=== PATIENT | female | born 1940 ===

== ENCOUNTER 2017-09-01 13:10 | Emergency (ER) | payer MEDICARE, OTHER ==
[2017-09-01 13:10] VITALS: BMI 37.1
[2017-09-01 13:18] VITALS: TEMP 98.6; O2SAT 96
[2017-09-01] MEDS ORDERED: Albuterol-Ipratrop 3 mg / 0.5 (3 ml) UD IH STA (13:35)
[2017-09-01] MEDS ORDERED: Sodium Chloride 0.9% 500 ML IV STA (13:35)
[2017-09-01] MEDS ORDERED: Albuterol-Ipratrop 3 mg / 0.5 (3 ml) UD ONE (13:47)
--- NOTE | 2017-09-01 13:53 | ED PDOC ---
History of Present Illness History of Present Illness: 76 year old female with a past medical history of diabetes, hypertension and arthritis presents to the ED with flu like symptoms. The patient states that she had had a chest tightness, dry cough, shortness of breath, bodyaches, weakness x1 week. Se reports that she has not taken anything for pain. Denies nasal congestion, body aches, fever, abdominal pain, nausea, vomiting, diarrhea. PMD: Dr. Castillo- [facility] HPI: Influenza Time Seen by Provider: 09/01/17 13:25 Chief Complaint: Flu-like Symptoms Chief Complaint (Provider): Chest Tightness, Dry Cough, Shortness of Breath History Per: Patient Exam Limitations: no limitations Have you had recent travel within the past 21 days to any of: No Onset/Duration Of Symptoms: Hrs (x1 week) Symptoms include: cough. denies: fever, bodyaches, nasal congestion, vomiting, diarrhea, chest pain, difficulty breathing (shortness of breath) Sick Contacts (Context): None Risk factors for flu complications: Yes: adult > 65 years Past Medical History Reviewed: Historical Data, Nursing Documentation, Vital Signs Vital Signs: Last Vital Signs Temp 98.6 F 09/01/17 13:16 Pulse 120 H 09/01/17 13:16 Resp 20 09/01/17 13:16 BP Pulse Ox 96 09/01/17 13:16 - Medical History PMH: Arthritis, Back Problems, Diabetes (type II), HTN, Hypercholesterolemia, Hyperlipidemia, Osteoporosis, Chronic Pain (back) Denies: HIV, Chronic Kidney Disease - Surgical History Surgical History: (x3) - Family History Family History: States: Unknown Family Hx - Living Arrangements Living Arrangements: Alone - Social History Current smoker - smoking cessation education provided: No Ex-Smoker (has not smoked in the last 12 months): No Alcohol: None Drugs: Denies - Home Medications Home Medications: Ambulatory Orders Medication Instructions Recorded Simvastatin 20 mg PO DAILY 10/17/14 Valsartan/Hydrochlorothiazide 1 tab PO BID 10/17/14 [Valsartan-Hctz 160-12.5 mg Tab] metFORMIN [glucOPHAGE] 500 mg PO DAILY 02/28/16 traMADol [Ultram] 50 mg PO Q8 PRN #12 tab 02/28/16 DiphenhydrAMINE [Benadryl] 50 mg PO Q6 #20 cap 08/20/16 Albuterol Sulfate [Proair Hfa] 0.09 mg IH Q6H PRN #2 inh 09/01/17 Azithromycin [Zithromax] 250 mg PO DAILY 5 Days tab 09/01/17 Benzonatate [Tessalon Perles] 100 mg PO BID PRN 5 Days sgl 09/01/17 Ibuprofen [Motrin] 600 mg PO TID 7 Days tab 09/01/17 - Allergies Allergies/Adverse Reactions: Allergies Allergy/AdvReac Type Severity Reaction Status Date / Time No Known Allergies Allergy Verified 08/20/16 11:48 Review of Systems ROS Statement: Except As Marked, All Systems Reviewed And Found Negative Constitutional: Positive for: Weakness. Negative for: Fever ENT: Negative for: Nose Congestion Cardiovascular: Negative for: Chest Pain (chest tightness) Respiratory: Positive for: Cough (dry), Shortness of Breath Gastrointestinal: Negative for: Nausea, Vomiting, Diarrhea Musculoskeletal: Negative for: Back Pain Neurological: Positive for: Weakness Physical Exam - Reviewed Nursing Documentation Reviewed: Yes Vital Signs Reviewed: Yes - Physical Exam Appears: Positive for: Non-toxic, No Acute Distress Head Exam: Positive for: ATRAUMATIC, NORMAL INSPECTION, NORMOCEPHALIC Skin: Positive for: Normal Color, Warm, Dry. Negative for: Rash Eye Exam: Positive for: Normal appearance, EOMI, PERRL. Negative for: Nystagmus ENT: Positive for: Nasal Congestion. Negative for: Pharyngeal Erythema, Tonsillar Exudate, Tonsillar Swelling Neck: Positive for: Normal, Painless ROM, Supple Cardiovascular/Chest: Positive for: Regular Rate, Rhythm, Chest Non Tender. Negative for: Tachycardia Respiratory: Positive for: Decreased Breath Sounds. Negative for: Accessory Muscle Use, Rhonchi, Wheezing, Respiratory Distress Gastrointestinal/Abdominal: Positive for: Normal Exam, Bowel Sounds, Soft. Negative for: Tenderness, Guarding, Rebound Back: Positive for: Normal Inspection. Negative for: L CVA Tenderness, R CVA Tenderness Extremity: Positive for: Normal ROM. Negative for: Tenderness, Deformity, Swelling Neurologic/Psych: Positive for: Alert, Oriented, Gait Medical Decision Making Medical Decision Makin Initial Impression 76 y/o female presenting with chest tightness, shortness of breath, dry cough Initial Plan: * EKG * B-type natriutetic * CMP * Troponin * CBC * CXR * Albuterol 3mL INH * NS 500ml IV 100mls/hr * Tessalon perles 100mg PO * Toradol 15mg IVP * Peak Flow pre/post * Influenza A B * Reevaluation Documented by Natty Valencia acting as a scribe for Oliver Sinclair MD. All medical record entries made by the Scribe were at my direction and personally dictated by me. I have reviewed the chart and agree that the record accurately reflects my personal performance of the history, physical exam, medical decision making, and the department course for this patient. I have also personally directed, reviewed, and agree with the discharge instructions and disposition. - Laboratory Results Result Diagrams: 09/01/17 13:40 09/01/17 13:40 Interpretation Of Abn Labs: 13.3 wbc; 3.4 k - ECG ECG: Positive for: Interpreted By Me, Viewed By Me ECG Rhythm: Positive for: Normal QRS, Normal ST Segment, Sinus Rhythm O2 Sat by Pulse Oximetry: 96 (RA) Pulse Ox Interpretation: Normal - Radiology X-Ray: Read By Radiologist X-Ray Interpretation: No Acute Disease - Progress ED Course And Treament: 1554: Stable. AAOx3. Pain free. Eating. Feels much better. Wants inhaler and antibiotics for dc. Disposition - Clinical Impression Clinical Impression: URI (upper respiratory infection), Hypokalemia - Patient ED Disposition Is Patient to be Admitted: No Counseled Patient/Family Regarding: Studies Performed, Diagnosis, Need For Followup, Rx Given - Disposition Referrals: [facility] [Outside] - 09/03/17 Disposition: Routine/Home Disposition Time: 15:55 Condition: STABLE Additional Instructions: Return if not better in 3 days. Prescriptions: Albuterol Sulfate [Proair Hfa] 0.09 mg IH Q6H PRN #2 inh PRN Reason: Wheezing Azithromycin [Zithromax] 250 mg PO DAILY 5 Days tab Benzonatate [Tessalon Perles] 100 mg PO BID PRN 5 Days sgl PRN Reason: Cough Ibuprofen [Motrin] 600 mg PO TID 7 Days tab Instructions: Hypokalemia Forms: [facility] (Portuguese)
[2017-09-01 14:20] LABS: ALB/GLOB RATIO 1.3 (1.0-2.1); ALBUMIN 4.3 g/dL (3.5-5.0); ALT/SGPT 29 U/L (9-52); AST/SGOT 27 U/L (14-36); BLOOD UREA NITROGEN 14 mg/dl (7-17); CALCIUM 9.8 mg/dL (8.4-10.2); GFR AFRICAN-AMERICAN > 60; GFR NON-AFRICAN AMERICAN > 60
[2017-09-01 14:22] LABS: BASO # 0.1 K/uL (0.0-0.2); BASO % 0.5 % (0.0-2.0); EOS # 0.3 K/uL (0.0-0.7); EOS % 2.2 % (0.0-4.0); HEMOGLOBIN 13.3 g/dL (12.0-16.0); LYMPH % 22.5 % (20.0-40.0); MEAN CORPUSCULAR HGB CONC 32.5 g/dL (33.0-37.0); MEAN PLATELET VOLUME 10.4 fl (7.2-11.7); MONO % 7.2 % (0.0-10.0); NEUT % 67.6 % (50.0-75.0); RBC 4.77 Mil/uL (3.80-5.20); RED CELL DISTRIBUTION WIDTH 13.8 % (11.5-14.5); WHITE BLOOD COUNT 13.3 K/uL (4.8-10.8)
[2017-09-01 14:32] LABS: B-TYPE NATRIURETIC PEPTIDE 33.1 pg/ml (0-900)
--- NOTE | 2017-09-01 15:40 | RAD ---
HISTORY: dyspnea COMPARISON: Comparison chest 10/17/2014 FINDINGS: LUNGS: Poor inspiration with low lung volumes, crowded bronchovascular markings and mild bibasilar atelectasis PLEURA: No significant pleural effusion identified, no pneumothorax apparent. CARDIOVASCULAR: Heart appears mildly enlarged unchanged. OSSEOUS STRUCTURES: No significant abnormalities. VISUALIZED UPPER ABDOMEN: Normal. OTHER FINDINGS: None. IMPRESSION: Poor inspiration with low lung volumes, crowded bronchovascular markings and mild bibasilar atelectasis.
[2017-09-01] MEDS ORDERED: Potassium Chloride 20 mEq ER Tab PO STA (15:49)
[2017-09-01 18:35] VITALS: BP 142/88; PULSE 92; RESP 18
--- NOTE | 2017-09-03 12:17 | CARD ---
APPROVED REPORT EKG Measurement Heart [id number] <Conclusion> Sinus tachycardia Otherwise normal ECG
== END 2017-09-01 18:10 | disposition home or self-care (01) ==
LOC: H.ER 13:10
DX: J06.9 Acute upper respiratory infection, unspecified (principal); E87.6 Hypokalemia; E11.9 Type 2 diabetes mellitus without complications; E78.00 Pure hypercholesterolemia, unspecified; G89.29 Other chronic pain; I10 Essential (primary) hypertension; Z79.84 Long term (current) use of oral hypoglycemic drugs; Z87.891 Personal history of nicotine dependence
CPT/HCPCS: 71045; 80053; 83880; 84484; 85025; 87804; 93005; 96374; 99283; J1885; J7040

== ENCOUNTER 2017-09-10 14:47 | Emergency (ER) | payer MEDICARE, OTHER ==
[2017-09-10 14:47] VITALS: BMI 37.1
[2017-09-10 14:52] VITALS: BP 150/77; PULSE 84; RESP 16; TEMP 97; O2SAT 99
--- NOTE | 2017-09-10 15:24 | ED PDOC ---
HPI: Skin/Bite Injury Time Seen by Provider: 09/10/17 14:55 Chief Complaint (Nursing): Abnormal Skin Integrity Chief Complaint (Provider): Rash History Per: Patient History/Exam Limitations: no limitations Onset/Duration Of Symptoms: Days (x 1 week) Current Symptoms Are (Timing): Still Present Additional History Per: Family (grandson) Additional Complaint(s): Lei is a 76 y/o female with a history of diabetes and hypertension who presents to the ED with her grandson for a rash on her left leg. Grandson states the rash is itchy and sometimes valera. She denies any new foods or skin products. She has been putting anti-fungus powder on it with no relief. Otherwise: (-) fever (-) joint pain (-) chest pain (-) abdominal pain (-) nausea (-) vomiting (-) diarrhea (-) recent URI (-) leg swelling (-) SOB/ dyspnea. PMD: Rob Past Medical History Reviewed: Historical Data, Nursing Documentation, Vital Signs Vital Signs: Last Vital Signs Temp 97 F L 09/10/17 14:49 Pulse 84 09/10/17 14:49 Resp 16 09/10/17 14:49 BP 150/77 09/10/17 14:49 Pulse Ox 99 09/10/17 21:24 - Medical History PMH: Arthritis, Back Problems, Diabetes (type II), HTN, Hypercholesterolemia, Hyperlipidemia, Osteoporosis, Chronic Pain (back) Denies: HIV, Chronic Kidney Disease - Surgical History Surgical History: (x3) - Family History Family History: States: Unknown Family Hx - Social History Current smoker - smoking cessation education provided: No Alcohol: None Drugs: Denies - Home Medications Home Medications: Ambulatory Orders Medication Instructions Recorded Simvastatin 20 mg PO DAILY 10/17/14 Valsartan/Hydrochlorothiazide 1 tab PO BID 10/17/14 [Valsartan-Hctz 160-12.5 mg Tab] metFORMIN [glucOPHAGE] 500 mg PO DAILY 02/28/16 traMADol [Ultram] 50 mg PO Q8 PRN #12 tab 02/28/16 DiphenhydrAMINE [Benadryl] 50 mg PO Q6 #20 cap 08/20/16 Albuterol Sulfate [Proair Hfa] 0.09 mg IH Q6H PRN #2 inh 09/01/17 Azithromycin [Zithromax] 250 mg PO DAILY 5 Days tab 09/01/17 Benzonatate [Tessalon Perles] 100 mg PO BID PRN 5 Days sgl 09/01/17 Ibuprofen [Motrin] 600 mg PO TID 7 Days tab 09/01/17 Calamine/Zinc Oxide [Calamine 10 ml TOP BID PRN #1 bottle 09/10/17 Lotion] - Allergies Allergies/Adverse Reactions: Allergies Allergy/AdvReac Type Severity Reaction Status Date / Time No Known Allergies Allergy Verified 08/20/16 11:48 Review of Systems ROS Statement: Except As Marked, All Systems Reviewed And Found Negative Skin: Positive for: Rash (legs b/l) Physical Exam - Reviewed Nursing Documentation Reviewed: Yes Vital Signs Reviewed: Yes - Physical Exam Appears: Positive for: Well, Non-toxic, No Acute Distress Head Exam: Positive for: ATRAUMATIC, NORMOCEPHALIC Skin: Positive for: Warm, Dry, Rash (erythematous, faint macules to left anterior, proximal glover (+) dry skin/flaking (-) tenderness (-) drainage (-) warmth (-) evidence of infection (-) ecchymosis) Neck: Positive for: Painless ROM, Supple Cardiovascular/Chest: Positive for: Regular Rate, Rhythm. Negative for: Murmur Respiratory: Positive for: Normal Breath Sounds. Negative for: Decreased Breath Sounds, Accessory Muscle Use, Respiratory Distress Gastrointestinal/Abdominal: Positive for: Soft. Negative for: Tenderness, Mass , Distended, Guarding, Rebound Extremity: Positive for: Capillary Refill (<2 seconds). Negative for: Tenderness, Pedal Edema, Calf Tenderness, Swelling, Other (excoriations, evidence of infection, skin break) Neurologic/Psych: Positive for: Alert, Oriented (x3), Gait (steady in ED with cane) - ECG O2 Sat by Pulse Oximetry: 99 (RA) Pulse Ox Interpretation: Normal Medical Decision Making Medical Decision Making: Time: 15:20 Initial Impression: Contact Dermatitis Dx of rash, likely contact dermatitis d/w the patient. Based on history, exam and diagnostic results plan will be for discharge and outpatient follow up. Advised to follow up with primary care physician in 1-2 days without fail. Advised to take medication as prescribed. Return to the emergency room at any time for any new or worsening symptoms. Patient states she fully agrees with and understands discharge instructions. States that she agrees with the plan and disposition. Verbalized and repeated discharge instructions and plan. I have given the patient opportunity to ask any additional questions. Scribe Attestation: Documented by Sonido Schmitt, acting as a scribe for Cherelle Christian PA-C Provider Scribe Attestation: All medical record entries made by the Scribe were at my direction and personally dictated by me. I have reviewed the chart and agree that the record accurately reflects my personal performance of the history, physical exam, medical decision making, and the department course for this patient. I have also personally directed, reviewed, and agree with the discharge instructions and disposition. Disposition - Clinical Impression Clinical Impression: Rash and nonspecific skin eruption, Contact dermatitis - Patient ED Disposition Is Patient to be Admitted: No Counseled Patient/Family Regarding: Diagnosis, Need For Followup, Rx Given - Disposition Referrals: Hao Le MD [Staff Provider] - Disposition: Routine/Home Disposition Time: 15:29 Condition: STABLE Prescriptions: Calamine/Zinc Oxide [Calamine Lotion] 10 ml TOP BID PRN #1 bottle PRN Reason: Itching / Pruritus Instructions: Contact Dermatitis (DC), Skin Rash Forms: [employer] (Mongolian) Print Language: TURKISH - POA Present On Arrival: None
== END 2017-09-10 15:30 | disposition home or self-care (01) ==
LOC: H.ER 14:47
DX: L25.9 Unspecified contact dermatitis, unspecified cause (principal); E11.9 Type 2 diabetes mellitus without complications; I10 Essential (primary) hypertension; G89.29 Other chronic pain; Z79.84 Long term (current) use of oral hypoglycemic drugs; M81.0 Age-related osteoporosis without current pathological fracture

== ENCOUNTER 2017-12-11 10:16 | Day surgery (SDC) | payer MEDICARE, OTHER ==
[2017-12-11 10:31] VITALS: BMI 44.3
[2017-12-11 11:07] VITALS: RESP 18
[2017-12-11] MEDS ORDERED: Lactated Ringer's 1,000 ML IV ONE ×2 (13:17→14:52)
[2017-12-11] MEDS ORDERED: Silver Nitrate Topical - Stick TOP ONE ×2 (14:00)
[2017-12-11] MEDS ORDERED: Labetalol 5 mg/ml Inj 20ML IVP PRN (14:36)
[2017-12-11 16:09] VITALS: O2SAT 97
[2017-12-11 17:28] VITALS: BP 116/74; PULSE 103; TEMP 97.7
--- NOTE | 2017-12-17 23:34 | OP ---
PROCEDURE DATE: 12/11/2017 PREOPERATIVE DIAGNOSIS: Thickened endometrium with retained intrauterine device. POSTOPERATIVE DIAGNOSIS: Thickened endometrium with retained intrauterine device with cervical stenosis. PROCEDURE: Attempted hysteroscopy with intrauterine device removal and dilation and curettage. SURGEON: Kain Lopez M.D. EXPLOSIVES OPERATOR: TYPE OF ANESTHESIA: General. COMPLICATIONS: None. FINDINGS: A stenotic internal cervical os was noted. IUD string identified; however, fibrosis and stenosis noted inside cervical os and IUD unable to be removed. INDICATION: This is a 77-year-old female with a history of an IUD that was placed 40 years ago and currently in place. The patient had a pelvic ultrasound performed that showed a thickened endometrium of 13 mm and thickening unable to be identified as grossly thickened lining versus IUD in place. Due to this, the patient was recommended to undergo a hysteroscopy with an attempt for IUD removal and a D and C. The patient was consented in New Zealander regarding the risks, benefits, and alternatives for the procedure. She stated understanding of all the risks, signed the consented and we proceeded to the operating room. DESCRIPTION OF PROCEDURE: The patient was brought to the operating room and given general anesthesia without difficulty. She was then placed in the dorsal lithotomy position and prepped and draped in the usual sterile fashion. Exam under anesthesia revealed a small uterine size and bilateral adnexa revealed no abnormalities. IUD strings were seen through the cervical os. Anterior lip of the cervix was then grasped with the single-tooth tenaculum and the cervix was attempted for serial dilation with Hegar and Hanks dilator. A hysteroscope was then able to be advanced with normal saline running up to the portion of the internal cervical os. The IUD string was then seen; however, dilation beyond this point was unable to be performed. The hysteroscope was then removed and a curettage was then performed with the Wesleyian curette of the endocervical portion. This was then placed in [facility] to be sent to pathology. An additional attempt was made for further dilation of the internal cervical os to allow better access for removal of the IUD and visualization of the endometrial cavity. Traction was then placed on the strings of the IUD, which again was unable to be removed due to fibrosis around the device and stenosis of the internal cervical os. As the procedure was unable to be performed for the removal of the device due to the severe fibrosis, the procedure was aborted at this time. All instruments were removed. Minimal bleeding was seen at the tenaculum site and this was stopped with silver nitrate. The patient was cleaned, re-positioned, and awakened from anesthesia. She was then transferred to the recovery room in stable condition and the patient will return to the office in 2 weeks to discuss the operative findings and needed further management. Kain Lopez MD
== END 2017-12-11 17:20 | disposition home or self-care (01) ==
LOC: H.OPSURG 10:16
PROVIDERS: ATTEND Obstetrics & Gynecology
DX: T83.82XA Fibrosis due to genitourinary prosthetic devices, implants and grafts, initial encounter (principal); N88.2 Stricture and stenosis of cervix uteri; R93.8 Abnormal findings on diagnostic imaging of other specified body structures; Y83.8 Other surgical procedures as the cause of abnormal reaction of the patient, or of later complication, without mention of misadventure at the time of the procedure; I10 Essential (primary) hypertension; E11.9 Type 2 diabetes mellitus without complications; Z79.84 Long term (current) use of oral hypoglycemic drugs
CPT/HCPCS: 58558; 82948; 88305; J0330; J2001; J2704; J2765; J3010; J7030; J7120

== ENCOUNTER 2018-04-29 09:55 | Emergency (ER) | payer MEDICARE, OTHER ==
[2018-04-29 10:01] VITALS: RESP 18
[2018-04-29 10:02] VITALS: BMI 35.7
--- NOTE | 2018-04-29 10:50 | ED PDOC ---
HPI: Chest Pain Time Seen by Provider: 04/29/18 10:12 Chief Complaint (Nursing): Abdominal Pain Chief Complaint (Provider): Chest Pain History Per: Patient History/Exam Limitations: no limitations Onset/Duration Of Symptoms: Days (x1 week) Current Symptoms Are (Timing): Constant Additional Complaint(s): Lei Hong is a 77 year old female with a past medical history of HTN, diabetes, arthritis and HLD, who presents to the emergency department complaining of left sided chest and shoulder pain, onset x1 week. She states the pain radiates to her neck and left side of her chest associated with swelling in left shoulder and chest wall. Patient states that the pain is constant for one week and that she took Tylenol and lidocaine. Patient states she has no difficu lty breathing, cough or leg swelling. PMD: Laura Lamar Against Medical Advice - AMA Patient Left Against Medical Advice: The patient declines admission to the hospital and wishes to leave the Emergency Department. This action is against my medical advice. This decision was made with informed refusal. The patient was told that admission to the hospital is necessary. Explanation of the reasons why were discussed. The risks of leaving were explained to the patient and include, but are not limited to, worsening of known or currently unknown conditions, permanent disability and from undiagnosed or untreated conditions. The patient has the capacity to make this informed decision and understands my explanation of the current medical problem and risks of leaving. The patient voluntarily accepts these risks and signed an AMA form documenting our conversation. The patient was given the opportunity to ask questions and reconsider. The patient was encouraged to return to the Emergency Department at any time for fu rther care. Past Medical History Reviewed: Historical Data, Nursing Documentation, Vital Signs Vital Signs: Last Vital Signs Temp 97.8 F 04/29/18 10:00 Pulse 90 04/29/18 10:00 Resp 18 04/29/18 10:00 BP 146/70 04/29/18 10:00 Pulse Ox 98 04/29/18 10:00 - Medical History PMH: Arthritis, Back Problems, Diabetes (type II), HTN, Hypercholesterolemia, Hyperlipidemia, Osteoporosis, Chronic Pain (back) Denies: HIV, Chronic Kidney Disease - Surgical History Surgical History: (x3) - Family History Family History: States: Unknown Family Hx - Home Medications Home Medications: Ambulatory Orders Medication Instructions Recorded Simvastatin 20 mg PO HS 10/17/14 Valsartan/Hydrochlorothiazide 1 tab PO DAILY 10/17/14 [Valsartan-Hctz 160-12.5 mg Tab] metFORMIN [glucOPHAGE] 500 mg PO BID 02/28/16 Ibuprofen [Motrin] 600 mg PO Q6 PRN 12/11/17 Naproxen 500 mg PO BID #20 tab 04/29/18 - Allergies Allergies/Adverse Reactions: Allergies Allergy/AdvReac Type Severity Reaction Status Date / Time No Known Allergies Allergy Verified 12/11/17 10:31 RILEY Risk Score for UA/NSTEMI - RILEY Risk Score Age > 64: NO 3 or more CAD Risk Factors: NO Known CAD (Stenosis greater than 50%): NO Aspirin use in past 7 days: NO Severe Angina: NO EKG ST changes greater than 0.5mm: NO Positive Cardiac Marker: NO RILEY Score: 0 Risk %: 5% Wells Criteria for PE - Wells Criteria for Pulmonary Embolism Clinical Signs and Symptoms of DVT: No P.E is #1 Diagnosis, or Equally Likely: No Heart Rate >100: No Immobilization at least 3 days;Surgery previous 4 weeks: No Previous, objectively diagnosed PE or DVT: No Hemoptysis: No Malignancy w/treatment within 6 months, or palliative: No Total Score: 0 Review of Systems ROS Statement: Except As Marked, All Systems Reviewed And Found Negative Cardiovascular: Positive for: Chest Pain (Left sided chest pain and swelling) Respiratory: Negative for: Cough, Shortness of Breath Musculoskeletal: Positive for: Neck Pain, Other (left shoulder pain and swelling). Negative for: Leg Pain (or swelling) Physical Exam - Reviewed Nursing Documentation Reviewed: Yes Vital Signs Reviewed: Yes - Physical Exam Appears: Positive for: Non-toxic, No Acute Distress (comfortable) Head Exam: Positive for: ATRAUMATIC, NORMOCEPHALIC Skin: Positive for: Normal Color, Warm, Dry Eye Exam: Positive for: Normal appearance, EOMI, PERRL ENT: Positive for: Normal ENT Inspection Neck: Positive for: Supple. Negative for: Normal (mild swelling on left lateral aspect of the neck) Cardiovascular/Chest: Positive for: Regular Rate, Rhythm, Other (swelling of left shoulder and upper chest wall; no redness or rash ). Negative for: Chest Non Tender, Murmur Respiratory: Positive for: Normal Breath Sounds. Negative for: Respiratory Distress Gastrointestinal/Abdominal: Positive for: Normal Exam, Soft. Negative for: Tenderness Extremity: Positive for: Normal ROM. Negative for: Pedal Edema, Deformity Lymphatic: Negative for: Adenopathy Neurologic/Psych: Positive for: Alert, Oriented (x3). Negative for: Motor/Sensory Deficits - Laboratory Results Result Diagrams: 04/29/18 11:00 04/29/18 11:00 - ECG O2 Sat by Pulse Oximetry: 98 (RA) Pulse Ox Interpretation: Normal - Radiology X-Ray: Viewed By Me, Read By Radiologist X-Ray Interpretation: No Acute Disease - Progress Re-evaluation Time: 13:20 Condition: Re-examined, Improved Medical Decision Making Medical Decision Making: Initial Time: 10:40 Initial Impression: Chest pain with swelling on the left neck and chest wall. Differential diagnosis includes but not limited to ACS, intrathoracic mass, DVT, arthritis, cellulitis, soft neck tissue infection Initial Plan: --EKG --CMP --Troponin I --CBC with differential --PTT --PT --Chest x-ray --Toradol 30 mg IVP --Edi Programmer Analyst When evaluated by provider, patient denies having any abdominal pain. Time: 11:33 Chest X-ray FINDINGS: LUNGS: No acute cardiopulmonary disease appreciated. PLEURA: No pneumothorax or pleural fluid seen. CARDIOVASCULAR: Normal. OSSEOUS STRUCTURES: No significant abnormalities. VISUALIZED UPPER ABDOMEN: Normal. OTHER FINDINGS: None. IMPRESSION: No acute cardiopulmonary disease appreciated. Scribe Attestation: Documented by Kiet Roberts, acting as a scribe for Schuyler Miranda MD. Provider Scribe Attestation: All medical record entries made by the Scribe were at my direction and personally dictated by me. I have reviewed the chart and agree that the record accurately reflects my personal performance of the history, physical exam, medical decision making, and the department course for this patient. I have also personally directed, reviewed, and agree with the discharge instructions and disposition. Disposition - Clinical Impression Clinical Impression: Localized swelling of chest wall, Neck pain, Left against medical advice - Patient ED Disposition Is Patient to be Admitted: No Doctor Will See Patient In The: Office Counseled Patient/Family Regarding: Studies Performed, Diagnosis, Need For Fol lowup - Disposition Referrals: Laura Lamar MD [Staff Provider] - Disposition: Routine/Home Disposition Time: 13:20 Condition: STABLE Additional Instructions: LEI HONG, thank you for letting us take care of you today. Your provider was Schuyler Miranda MD and you were treated for ABD PAIN. The emergency medical care you received today was directed at your acute symptoms. If you were prescribed any medication, please fill it and take as directed. It may take several days for your symptoms to resolve. Return to the Emergency Department if your symptoms worsen, do not improve, or if you have any other problems. Please contact your doctor or call one of the physicians/clinics you have been referred to that are listed on the Patient Visit Information form that is included in your discharge packet. Bring any paperwork you were given at [facility] with you along with any medications you are taking to your follow up visit. Our treatment cannot replace ongoing medical care by a primary care provider outside of the emergency department. Thank you for allowing the [email or web address] team to be part of your care today. If you had an X-Ray or CT scan: A Radiologist will review the ED reading if any change in treatment is needed we will contact you. If you had a blood, urine, or wound culture: It will take several days for the results, if any change in treatment is needed we will contact you. If you had an STI test: It will take 48 hours for the results. Please call after 1 week if you have not heard back. Prescriptions: Naproxen 500 mg PO BID #20 tab Instructions: Pleural Effusion, Neck Pain, Leaving Against Medical Advice Forms: [employer] (Turkmen) Print Language: URUGUAYAN
--- NOTE | 2018-04-29 11:09 | CARD ---
APPROVED REPORT Date of service: 04/29/2018 EKG Measurement Heart [id number] <Conclusion> Normal sinus rhythm with sinus arrhythmia Normal ECG
[2018-04-29 11:13] LABS: BASO # 0.1 K/uL (0.0-0.2); BASO % 0.6 % (0.0-2.0); EOS # 0.2 K/uL (0.0-0.7); EOS % 1.6 % (0.0-4.0); HEMOGLOBIN 13.7 g/dL (12.0-16.0); LYMPH % 23.9 % (20.0-40.0); MEAN CELL VOLUME 86.4 fl (81.0-99.0); MEAN CORPUSCULAR HEMOGLOBIN 28.6 pg (27.0-31.0); MEAN CORPUSCULAR HGB CONC 33.1 g/dL (33.0-37.0); MEAN PLATELET VOLUME 10.2 fl (7.2-11.7); MONO # 0.7 K/uL (0.0-0.8); MONO % 5.5 % (0.0-10.0); NEUT # 8.5 K/uL (1.8-7.0); NEUT % 68.4 % (50.0-75.0); RBC 4.81 Mil/uL (3.80-5.20); RED CELL DISTRIBUTION WIDTH 13.8 % (11.5-14.5); WHITE BLOOD COUNT 12.5 K/uL (4.8-10.8)
[2018-04-29 11:14] LABS: PROTHROMBIN TIME 11.1 Seconds (9.8-13.1)
[2018-04-29 11:17] LABS: PARTIAL THROMBOPLASTIN TIME 25.6 Seconds (25.6-37.1)
[2018-04-29 11:19] LABS: ALB/GLOB RATIO 1.2 (1.0-2.1); ALBUMIN 4.1 g/dL (3.5-5.0); ALT/SGPT 24 U/L (9-52); AST/SGOT 25 U/L (14-36); BLOOD UREA NITROGEN 15 mg/dl (7-17); CALCIUM 9.3 mg/dL (8.4-10.2); GFR NON-AFRICAN AMERICAN > 60
--- NOTE | 2018-04-29 11:37 | RAD ---
Date of service: 04/29/2018 PROCEDURE: CHEST RADIOGRAPH, 1 VIEW HISTORY: chest pain COMPARISON: Chest radiographs 09/12/2017. FINDINGS: LUNGS: No acute cardiopulmonary disease appreciated. PLEURA: No pneumothorax or pleural fluid seen. CARDIOVASCULAR: Normal. OSSEOUS STRUCTURES: No significant abnormalities. VISUALIZED UPPER ABDOMEN: Normal. OTHER FINDINGS: None. IMPRESSION: No acute cardiopulmonary disease appreciated.
[2018-04-29] MEDS ORDERED: Iohexol 300 100 ML IJ ONE (13:39)
[2018-04-29] MEDS ORDERED: Sodium Chloride 0.9% 0 ML IV ONE (13:39)
[2018-04-29 14:31] VITALS: BP 136/76; PULSE 76; TEMP 97.9
[2018-04-29 15:50] VITALS: O2SAT 98
== END 2018-04-29 14:28 | disposition left against medical advice (07) ==
LOC: H.ER 09:55
DX: R22.2 Localized swelling, mass and lump, trunk (principal); M54.2 Cervicalgia; E11.9 Type 2 diabetes mellitus without complications; G89.29 Other chronic pain; I10 Essential (primary) hypertension; Z79.84 Long term (current) use of oral hypoglycemic drugs; M81.0 Age-related osteoporosis without current pathological fracture
CPT/HCPCS: 71045; 80053; 84484; 85025; 85610; 85730; 93005; 96374; 99284; J1885

== ENCOUNTER 2018-05-01 13:25 | Emergency (ER) | payer MEDICARE, OTHER ==
[2018-05-01 13:25] VITALS: BMI 35.7
--- NOTE | 2018-05-01 13:51 | ED PDOC ---
HPI: General Adult Time Seen by Provider: 05/01/18 13:39 Chief Complaint (Nursing): Headache History Per: Patient Onset/Duration Of Symptoms: Other ( 2weeks) Current Symptoms Are (Timing): Still Present Severity: Mild Additional Complaint(s): Swelling left upper chest and left side of neck x 2 weeks. seen here 2 days ago for same but could not stay for CT recommended at that time. Mildly painful but denies trauma or fever. Past Medical History Vital Signs: Last Vital Signs Temp 97.4 F L 05/01/18 13:34 Pulse 89 05/01/18 13:34 Resp 16 05/01/18 13:34 BP 161/89 H 05/01/18 13:34 Pulse Ox 98 05/01/18 13:34 - Medical History PMH: Arthritis, Back Problems, Diabetes (type II), HTN, Hypercholesterolemia, Hyperlipidemia, Osteoporosis, Chronic Pain (back) Denies: HIV, Chronic Kidney Disease - Surgical History Surgical History: (x3) - Family History Family History: States: Unknown Family Hx - Home Medications Home Medications: Ambulatory Orders Medication Instructions Recorded Simvastatin 20 mg PO HS 10/17/14 Valsartan/Hydrochlorothiazide 1 tab PO DAILY 10/17/14 [Valsartan-Hctz 160-12.5 mg Tab] metFORMIN [glucOPHAGE] 500 mg PO BID 02/28/16 Ibuprofen [Motrin] 600 mg PO Q6 PRN 12/11/17 Naproxen 500 mg PO BID #20 tab 04/29/18 - Allergies Allergies/Adverse Reactions: Allergies Allergy/AdvReac Type Severity Reaction Status Date / Time No Known Allergies Allergy Verified 05/01/18 13:32 Review of Systems ROS Statement: Except As Marked, All Systems Reviewed And Found Negative Musculoskeletal: Positive for: Neck Pain Physical Exam - Reviewed Nursing Documentation Reviewed: Yes Vital Signs Reviewed: Yes - Physical Exam Appears: Positive for: Non-toxic, No Acute Distress Head Exam: Positive for: ATRAUMATIC, NORMAL INSPECTION, NORMOCEPHALIC Skin: Positive for: Normal Color, Warm, DRY Eye Exam: Positive for: EOMI, Normal appearance, PERRL ENT: Positive for: Normal ENT Inspection Neck: Positive for: Painless ROM. Negative for: Normal (Mild supraclavicular swelling. No tenderness or crepitance.) Cardiovascular/Chest: Positive for: Regular Rate, Rhythm Respiratory: Positive for: CNT, Normal Breath Sounds Gastrointestinal/Abdominal: Positive for: Normal Exam, Soft Back: Positive for: Normal Inspection Extremity: Positive for: Normal ROM Neurologic/Psych: Positive for: Alert, Oriented - ECG O2 Sat by Pulse Oximetry: 98 Disposition - Clinical Impression Clinical Impression: Neck pain - Patient ED Disposition Is Patient to be Admitted: Transfer of Care - Disposition Disposition: Transfer of Care Disposition Time: 14:51 Condition: FAIR Forms: [employer] (Bahraini) Patient Signed Over To: Anne Jackson
[2018-05-01] MEDS ORDERED: Iohexol 300 100 ML IJ ONE (14:51)
[2018-05-01] MEDS ORDERED: Sodium Chloride 0.9% 50 ML IV ONE (14:51)
--- NOTE | 2018-05-01 16:26 | CT ---
Date of service: 05/01/2018 PROCEDURE: CT Neck, Chest, Abdomen and Pelvis with contrast HISTORY: Swelling left side of neck COMPARISON: None available. TECHNIQUE: Contrast dose: 95 mL Omnipaque 300 Radiation dose: Total exam DLP = 863.69 mGy-cm. This CT exam was performed using one or more of the following dose reduction techniques: Automated exposure control, adjustment of the mA and/or kV according to patient size, and/or use of iterative reconstruction technique. FINDINGS: CT OF THE NECK: PHARYNX: Nasopharynx: Unremarkable. Oropharnx: Unremarkable. Hypopharynx: Unremarkable. LYMPH NODES: Unremarkable. VASCULATURE: Prominent left internal jugular vein with heterogeneous attenuation which may be related to admixture versus organizing thrombus. GLANDS: Unremarkable. CERVICAL SPINE: Degenerative changes. CT OF THE CHEST: LUNGS: Clear lungs. Visualized airway clear. MEDIASTINUM: Unremarkable thoracic aorta. No aneurysm or dissection. Cardiomegaly. Pulmonary arterial truck unremarkable. No vascular congestion. No lymphadenopathy. No aortic atherosclerotic calcification or mural plaque present. Brachiocephalic vein and SVC are widely patent. PLEURA: No pleural fluid. No pneumothorax. BONES: No fracture. No destructive lesion. OTHER FINDINGS: Partially imaged calcified cholelithiasis. IMPRESSION: No left neck mass, adenopathy or soft tissue swelling. Distended left internal jugular vein with heterogeneous attenuation which may be related to admixture versus organizing thrombus. Ultrasound of the left internal jugular vein can be obtained for further evaluation as clinically warranted. Partially imaged calcified cholelithiasis.
--- NOTE | 2018-05-01 16:52 | ED PDOC ---
- ECG O2 Sat by Pulse Oximetry: 98 Medical Decision Making Medical Decision Makin:00 Patient endorsed to provider by Dr. Steele with left neck swelling pending CT scan. 16:22 Neck/Chest CT FINDINGS: CT OF THE NECK: PHARYNX: Nasopharynx: Unremarkable. Oropharnx: Unremarkable. Hypopharynx: Unremarkable. LYMPH NODES: Unremarkable. VASCULATURE: Prominent left internal jugular vein with heterogeneous attenuation which may be related to admixture versus organizing thrombus. GLANDS: Unremarkable. CERVICAL SPINE: Degenerative changes. CT OF THE CHEST: LUNGS: Clear lungs. Visualized airway clear. MEDIASTINUM: Unremarkable thoracic aorta. No aneurysm or dissection. Cardiomegaly. Pulmonary arterial truck unremarkable. No vascular congestion. No lymphadenopathy. No aortic atherosclerotic calcification or mural plaque present. Brachiocephalic vein and SVC are widely patent. PLEURA: No pleural fluid. No pneumothorax. BONES: No fracture. No destructive lesion. OTHER FINDINGS: Partially imaged calcified cholelithiasis. IMPRESSION: No left neck mass, adenopathy or soft tissue swelling. Distended left internal jugular vein with heterogeneous attenuation which may be related to admixture versus organizing thrombus. Ultrasound of the left inter nal jugular vein can be obtained for further evaluation as clinically warranted. Partially imaged calcified cholelithiasis. Scribe Attestation: Documented by Khurram Almeida acting as a scribe for Anne Jackson MD Provider Scribe Attestation: All medical record entries made by the Scribe were at my direction and personally dictated by me. I have reviewed the chart and agree that the record accurately reflects my personal performance of the history, physical exam, medical decision making, and the department course for this patient. I have also personally directed, reviewed, and agree with the discharge instructions and disposition. Disposition - Clinical Impression Clinical Impression: Neck pain - Disposition Condition: FAIR Forms: [employer] (Telugu)
--- NOTE | 2018-05-01 18:53 | US ---
Date of service: 05/01/2018 PROCEDURE: Left Upper Extremity Venous Doppler HISTORY: swelling LEFT IJ on CT r/o thrombus COMPARISON: None available. TECHNIQUE: Left upper extremity deep veins, including the lower internal jugular, subclavian, axillary and brachial veins, were evaluated flow, compressibility and respiratory phasicity. Basilic, cephalic, radial and ulnar veins were also evaluated. FINDINGS: Normal flow, compressibility and respiratory phasicity was observed in the the left upper extremity deep veins. IMPRESSION: No evidence of deep venous thrombosis.
[2018-05-01 19:05] VITALS: BP 116/54; PULSE 72; RESP 18; TEMP 98.4; O2SAT 96
== END 2018-05-01 19:19 | disposition home or self-care (01) ==
LOC: H.ER 13:25
DX: M54.2 Cervicalgia (principal); E11.9 Type 2 diabetes mellitus without complications; I10 Essential (primary) hypertension; Z79.84 Long term (current) use of oral hypoglycemic drugs
CPT/HCPCS: 70491; 71260; 93971; 99284; Q9967

== ENCOUNTER 2018-06-07 15:17 | Emergency (ER) | payer MEDICARE, OTHER ==
[2018-06-07 15:17] VITALS: BMI 35.7
[2018-06-07] MEDS ORDERED: Sodium Chloride 0.9% 500 ML IV STA (15:53)
--- NOTE | 2018-06-07 16:14 | ED PDOC ---
HPI: General Adult Time Seen by Provider: 06/07/18 15:38 Chief Complaint (Nursing): Weakness/Neurological Deficit Chief Complaint (Provider): Dizzieness History Per: Patient, Family History/Exam Limitations: no limitations Onset/Duration Of Symptoms: Hrs Have you had recent travel within the past 21 days to any of the following countries: [place], [place], [place] or [place]?: No Current Symptoms Are (Timing): Still Present Additional Complaint(s): 77 y/o female with a PMHx of Osteoporosis, arthritis, HTN, DM and hypercholesterolemia presents to the ED complaining of dizziness. Patient describes dizziness as "room-spinning" and states it is associated with generalized weakness, mild shortness of breath, leg pain, back pain, and bone pain. Patient states she was fine last night and woke up today with sudden onset of symptoms. Patient denies chest pain, congestion, rhinorrhea, headache, numbness, tingling and abdominal pain. PMD: [facility] Past Medical History Reviewed: Historical Data, Nursing Documentation, Vital Signs Vital Signs: Last Vital Signs Temp 97.7 F 06/07/18 15:26 Pulse 79 06/07/18 15:26 Resp 18 06/07/18 15:26 BP 133/80 06/07/18 15:26 Pulse Ox 100 06/07/18 15:26 - Medical History PMH: Arthritis, Back Problems, Diabetes (type II), HTN, Hypercholesterolemia, Hyperlipidemia, Osteoporosis, Chronic Pain (back) Denies: HIV, Chronic Kidney Disease - Surgical History Surgical History: (x3) - Family History Family History: States: Unknown Family Hx - Living Arrangements Living Arrangements: With Family - Home Medications Home Medications: Ambulatory Orders Medication Instructions Recorded Simvastatin 20 mg PO HS 10/17/14 Valsartan/Hydrochlorothiazide 1 tab PO DAILY 10/17/14 [Valsartan-Hctz 160-12.5 mg Tab] metFORMIN [glucOPHAGE] 500 mg PO BID 02/28/16 Ibuprofen [Motrin] 600 mg PO Q6 PRN 12/11/17 Naproxen 500 mg PO BID #20 tab 04/29/18 Ibuprofen [Motrin Tab] 600 mg PO Q8 PRN #30 tab 05/01/18 Lidocaine 5% [Lidoderm] 1 ea TD DAILY PRN #20 patch 05/01/18 - Allergies Allergies/Adverse Reactions: Allergies Allergy/AdvReac Type Severity Reaction Status Date / Time No Known Allergies Allergy Verified 06/07/18 15:23 Review of Systems ROS Statement: Except As Marked, All Systems Reviewed And Found Negative Constitutional: Positive for: Weakness ENT: Negative for: Nose Discharge, Nose Congestion Cardiovascular: Negative for: Chest Pain Respiratory: Positive for: Shortness of Breath (MILD) Gastrointestinal: Negative for: Abdominal Pain Musculoskeletal: Positive for: Back Pain, Leg Pain, Other ("BONE" PAIN) Neurological: Positive for: Weakness, Dizziness ("ROOM-SPINNING"). Negative for: Numbness, Headache Physical Exam - Reviewed Nursing Documentation Reviewed: Yes Vital Signs Reviewed: Yes - Physical Exam Appears: Positive for: No Acute Distress, Uncomfortable Head Exam: Positive for: ATRAUMATIC, NORMOCEPHALIC Skin: Positive for: Normal Color, Warm, Dry Eye Exam: Positive for: Normal appearance, EOMI, PERRL ENT: Positive for: Normal ENT Inspection. Negative for: Nasal Congestion, Pharyngeal Erythema Neck: Positive for: Normal, Painless ROM, Supple Cardiovascular/Chest: Positive for: Regular Rate, Rhythm. Negative for: Murmur Respiratory: Positive for: Normal Breath Sounds. Negative for: Respiratory Distress Gastrointestinal/Abdominal: Positive for: Soft. Negative for: Tenderness Back: Positive for: Normal Inspection. Negative for: L CVA Tenderness, R CVA Tenderness Extremity: Positive for: Normal ROM. Negative for: Tenderness, Pedal Edema, Deformity Neurologic/Psych: Positive for: Alert, home and school visitor II-XII, Oriented (x3). Negative for: Motor/Sensory Deficits, Aphasia, Facial Droop - Laboratory Results Result Diagrams: 06/07/18 16:27 06/07/18 16:27 Interpretation Of Abn Labs: 15.6 wbc, 3.4 k - ECG ECG: Positive for: Interpreted By Me, Viewed By Me ECG Rhythm: Positive for: Normal QRS, Normal ST Segment, Sinus Rhythm O2 Sat by Pulse Oximetry: 100 (RA) Pulse Ox Interpretation: Normal - Radiology X-Ray: Read By Radiologist X-Ray Interpretation: No Acute Disease Medical Decision Making Medical Decision Making: Time: [id number] Plan: -- CT Head w/o Contrast -- EKG -- B-Type Natriuretic Peptide -- CMP -- Troponin I -- CBC with Differentials -- PTT -- Prothrombin Time -- CXR -- Glucose, POC -- Antivert 25 mg PO -- Sodium Chloide 0.9% IV 100 mls/hr Time: 1640 CXR RESULTS FINDINGS: LUNGS: No active pulmonary disease. PLEURA: No significant pleural effusion identified, no pneumothorax apparent. CARDIOVASCULAR: No atherosclerotic calcification present No radiographic findings to suggest acute or significant cardiovascular disease. OSSEOUS STRUCTURES: No significant abnormalities. VISUALIZED UPPER ABDOMEN: Normal. OTHER FINDINGS: None. IMPRESSION: No active disease. No significant interval change compared to the prior examination(s). Time: 1641 -- At this time, patient is refusing CT Head. Patient made aware of possible risk factors. Patient has the capacity of making decisions. Family is at bedside and made aware of decreased function and possibly from her symptoms. Pt. is aaox3. Scribe Attestation: Documented by Shivam Gonzalez, acting as a scribe for Oliver Sinclair MD. Provider Scribe Attestation: All medical record entries made by the Scribe were at my direction and personally dictated by me. I have reviewed the chart and agree that the record accurately reflects my personal performance of the history, physical exam, medical decision making, and the department course for this patient. I have also personally directed, reviewed, and agree with the discharge instructions and disposition. 1820: Stable. Pt. refusing to get ct still. Does not want to be admitted. Daughter at bedside and aware of pt. decision. Pt. will go against medical advice. Ambulated with no issues. Tolerated po. No dizzy. WBC elevated last visit also, possibly chronic for pt. Has no chest pain or dyspnea currently. Disposition - Clinical Impression Clinical Impression: Hypokalemia, Acute weakness, Dizziness - Patient ED Disposition Is Patient to be Admitted: No Counseled Patient/Family Regarding: Studies Performed, Diagnosis - Disposition Referrals: [facility] [Outside] - 06/10/18 Disposition: Against Medical Advice Disposition Time: 18:46 Condition: STABLE Additional Instructions: Return soon as possible for further evaluation and treatment. You are going against medical advice and aware of possible or decreased functioning from your symptoms. Instructions: Weakness (ED), Dizziness, Nonvertigo, (DC), Hypokalemia (DC) Forms: [employer] (Spanish) Print Language: [place]
[2018-06-07 16:44] LABS: PROTHROMBIN TIME 11.1 Seconds (9.8-13.1)
--- NOTE | 2018-06-07 16:44 | RAD ---
Date of service: 06/07/2018 HISTORY: dyspnea COMPARISON: No prior. 04/29/2018. FINDINGS: LUNGS: No active pulmonary disease. PLEURA: No significant pleural effusion identified, no pneumothorax apparent. CARDIOVASCULAR: No atherosclerotic calcification present No radiographic findings to suggest acute or significant cardiovascular disease. OSSEOUS STRUCTURES: No significant abnormalities. VISUALIZED UPPER ABDOMEN: Normal. OTHER FINDINGS: None. IMPRESSION: No active disease. No significant interval change compared to the prior examination(s).
[2018-06-07 16:52] LABS: ALB/GLOB RATIO 1.2 (1.0-2.1); ALBUMIN 4.3 g/dL (3.5-5.0); ALT/SGPT 29 U/L (9-52); AST/SGOT 24 U/L (14-36); BLOOD UREA NITROGEN 10 mg/dl (7-17); CALCIUM 9.7 mg/dL (8.4-10.2); GFR NON-AFRICAN AMERICAN > 60
[2018-06-07 16:54] LABS: BASO # 0.1 K/uL (0.0-0.2); BASO % 0.5 % (0.0-2.0); EOS # 0.2 K/uL (0.0-0.7); EOS % 1.2 % (0.0-4.0); HEMOGLOBIN 13.5 g/dL (12.0-16.0); LYMPH # 3.8 K/uL (1.0-4.3); LYMPH % 24.6 % (20.0-40.0); MEAN CELL VOLUME 88.9 fl (81.0-99.0); MEAN CORPUSCULAR HEMOGLOBIN 28.3 pg (27.0-31.0); MEAN CORPUSCULAR HGB CONC 31.9 g/dL (33.0-37.0); MEAN PLATELET VOLUME 10.6 fl (7.2-11.7); MONO # 1.1 K/uL (0.0-0.8); NEUT # 10.4 K/uL (1.8-7.0); NEUT % 66.7 % (50.0-75.0); NRBC % 0.2 % (0.0-0.0); RBC 4.77 Mil/uL (3.80-5.20); WHITE BLOOD COUNT 15.6 K/uL (4.8-10.8)
[2018-06-07 17:04] LABS: B-TYPE NATRIURETIC PEPTIDE 71.9 pg/ml (0-900)
[2018-06-07] MEDS ORDERED: Potassium Chloride 20 mEq ER Tab PO STA (18:17)
[2018-06-07] MEDS ORDERED: Potassium Chloride 20 mEq ER Tab PO ONE (18:31)
[2018-06-07 19:33] VITALS: BP 100/59; PULSE 73; RESP 12; TEMP 98.5; O2SAT 97
--- NOTE | 2018-06-08 19:04 | CARD ---
APPROVED REPORT Date of service: 06/07/2018 EKG Measurement Heart [id number] <Conclusion> Normal sinus rhythm Normal ECG
== END 2018-06-07 19:37 | disposition home or self-care (01) ==
LOC: H.ER 15:17
DX: R42 Dizziness and giddiness (principal); M62.81 Muscle weakness (generalized); E87.6 Hypokalemia; E11.9 Type 2 diabetes mellitus without complications; E78.00 Pure hypercholesterolemia, unspecified; I10 Essential (primary) hypertension; Z79.84 Long term (current) use of oral hypoglycemic drugs; G89.29 Other chronic pain
CPT/HCPCS: 71045; 80053; 82948; 83880; 84484; 85025; 85610; 85730; 93005; 99285; J7040

== ENCOUNTER 2018-06-11 06:39 | Emergency (ER) | payer MEDICARE, OTHER ==
[2018-06-11 06:56] VITALS: BMI 39.6
--- NOTE | 2018-06-11 07:25 | ED PDOC ---
HPI: SOB/CHF/COPD Time Seen by Provider: 06/11/18 07:13 Chief Complaint (Nursing): Shortness Of Breath Chief Complaint (Provider): Shortness Of Breath History Per: Patient History/Exam Limitations: no limitations Associated Symptoms: Dizziness. denies: Chest Pain Additional Complaint(s): 77 years old female with history of high cholesterol, hyperlipidema, diabetes and hypertension presents to ER for evaluation of dizziness associated with shortness of breath. Patient had multiple visits to the ED for similar complaints over the past weeks and workup was unremarkable. She denies chest jameel n, cough, palpitations and focal weakness. PMD: non provided Past Medical History Reviewed: Historical Data, Nursing Documentation, Vital Signs Vital Signs: Last Vital Signs Temp 97.6 F 06/11/18 06:56 Pulse 79 06/11/18 06:56 Resp 18 06/11/18 06:56 BP 175/83 H 06/11/18 06:56 Pulse Ox 96 06/11/18 06:56 - Medical History PMH: Arthritis, Back Problems, Diabetes (type II), HTN, Hypercholesterolemia, Hyperlipidemia, Osteoporosis, Chronic Pain (back) Denies: HIV, Chronic Kidney Disease - Surgical History Surgical History: (x3) - Family History Family History: States: Unknown Family Hx - Home Medications Home Medications: Ambulatory Orders Medication Instructions Recorded Simvastatin 20 mg PO HS 10/17/14 Valsartan/Hydrochlorothiazide 1 tab PO DAILY 10/17/14 [Valsartan-Hctz 160-12.5 mg Tab] metFORMIN [glucOPHAGE] 500 mg PO BID 02/28/16 Ibuprofen [Motrin] 600 mg PO Q6 PRN 12/11/17 Naproxen 500 mg PO BID #20 tab 04/29/18 Ibuprofen [Motrin Tab] 600 mg PO Q8 PRN #30 tab 05/01/18 Lidocaine 5% [Lidoderm] 1 ea TD DAILY PRN #20 patch 05/01/18 Meclizine [Meclizine*] 25 mg PO Q8 #15 tab 06/11/18 - Allergies Allergies/Adverse Reactions: Allergies Allergy/AdvReac Type Severity Reaction Status Date / Time No Known Allergies Allergy Verified 06/11/18 06:56 Review of Systems ROS Statement: Except As Marked, All Systems Reviewed And Found Negative Cardiovascular: Negative for: Chest Pain, Palpitations Respiratory: Positive for: Shortness of Breath. Negative for: Cough Neurological: Positive for: Dizziness. Negative for: Weakness Physical Exam - Reviewed Nursing Documentation Reviewed: Yes Vital Signs Reviewed: Yes - Physical Exam Appears: Positive for: Non-toxic, No Acute Distress Head Exam: Positive for: ATRAUMATIC, NORMOCEPHALIC Skin: Positive for: Normal Color, Warm, Dry Eye Exam: Positive for: Normal appearance, EOMI, PERRL Neck: Positive for: Normal, Painless ROM, Supple Cardiovascular/Chest: Positive for: Regular Rate, Rhythm. Negative for: Murmur Respiratory: Positive for: Normal Breath Sounds. Negative for: Wheezing Gastrointestinal/Abdominal: Positive for: Normal Exam, Soft. Negative for: Tenderness Back: Positive for: Normal Inspection. Negative for: L CVA Tenderness, R CVA Tenderness Extremity: Positive for: Normal ROM. Negative for: Tenderness, Swelling Neurologic/Psych: Positive for: Alert, Oriented (x3). Negative for: Motor/Sensory Deficits - ECG O2 Sat by Pulse Oximetry: 96 (RA) Pulse Ox Interpretation: Normal Medical Decision Making Medical Decision Making: Time: 717 Initial Plan: --Head CT W/O Contrast Pt declines CT of head Scribe Attestation: Documented by Sophia Boles, acting as a scribe for Michael Steele MD. Provider Scribe Attestation: All medical record entries made by the Scribe were at my direction and per sonally dictated by me. I have reviewed the chart and agree that the record accurately reflects my personal performance of the history, physical exam, medical decision making, and the department course for this patient. I have also personally directed, reviewed, and agree with the discharge instructions and disposition. Disposition - Clinical Impression Clinical Impression: Vertigo - Patient ED Disposition Is Patient to be Admitted: No - Disposition Referrals: [facility] [Outside] Disposition: Routine/Home Disposition Time: 09:13 Condition: FAIR Prescriptions: Meclizine [Meclizine*] 25 mg PO Q8 #15 tab Instructions: Vertigo (a Type of Dizziness) Forms: [employer] (Bahraini) Print Language: IRISH
[2018-06-11 09:05] VITALS: RESP 19
[2018-06-11 10:15] LABS: BASO # 0.1 K/uL (0.0-0.2); BASO % 0.5 % (0.0-2.0); EOS # 0.1 K/uL (0.0-0.7); EOS % 0.7 % (0.0-4.0); HEMOGLOBIN 14.3 g/dL (12.0-16.0); LYMPH # 2.7 K/uL (1.0-4.3); LYMPH % 21.5 % (20.0-40.0); MEAN CELL VOLUME 88.8 fl (81.0-99.0); MEAN CORPUSCULAR HEMOGLOBIN 28.3 pg (27.0-31.0); MEAN CORPUSCULAR HGB CONC 31.8 g/dL (33.0-37.0); MEAN PLATELET VOLUME 10.5 fl (7.2-11.7); MONO # 0.6 K/uL (0.0-0.8); MONO % 5.1 % (0.0-10.0); NEUT % 72.2 % (50.0-75.0); NRBC % 0.1 % (0.0-0.0); RBC 5.07 Mil/uL (3.80-5.20); RED CELL DISTRIBUTION WIDTH 14.2 % (11.5-14.5); WHITE BLOOD COUNT 12.4 K/uL (4.8-10.8)
[2018-06-11 10:35] LABS: ALB/GLOB RATIO 1.3 (1.0-2.1); ALBUMIN 4.6 g/dL (3.5-5.0); ALT/SGPT 27 U/L (9-52); AST/SGOT 25 U/L (14-36); BLOOD UREA NITROGEN 11 mg/dl (7-17); CALCIUM 9.6 mg/dL (8.4-10.2); GFR NON-AFRICAN AMERICAN > 60
--- NOTE | 2018-06-11 10:55 | RAD ---
Date of service: 06/11/2018 HISTORY: Shortness of breath COMPARISON: 06/07/2018 TECHNIQUE: Chest PA and lateral FINDINGS: LINES AND TUBES: None. LUNG AND PLEURA: The lungs are well inflated. There is mild pulmonary venous congestion. No pleural effusion or pneumothorax. HEART AND MEDIASTINUM: The heart is not enlarged. No aortic atherosclerotic calcification present. The hilar and mediastinal contours are within normal limits. SKELETAL STRUCTURES: The bony structures are within normal limits for the patient's age. VISUALIZED UPPER ABDOMEN: Normal. OTHER FINDINGS: None. IMPRESSION: No active pulmonary disease.
[2018-06-11 11:48] LABS: SQUAMOUS EPITHIAL 1 /hpf (0-5); URINE BILIRUBIN NEGATIVE (NEGATIVE); URINE BLOOD SMALL (NEGATIVE); URINE CLARITY CLEAR (Clear); URINE COLOR YELLOW (YELLOW); URINE GLUCOSE (UA) NEG (NEGATIVE); URINE LEUKOCYTE ESTERASE TRACE Leu/uL (Negative); URINE PROTEIN NEGATIVE (NEGATIVE); URINE UROBILINOGEN 0.2-1.0 mg/dL (0.2-1.0)
--- NOTE | 2018-06-11 13:31 | US ---
Date of service: 06/11/2018 HISTORY: elevated bili COMPARISON: None. TECHNIQUE: Grayscale imaging was performed. FINDINGS: LIVER: Measures 19.7 cm in length. There is diffuse increased echogenicity of the liver parenchyma. No mass. No intrahepatic bile duct dilatation. GALLBLADDER: There is a 2.2 cm gallstone. No wall thickening, pericholecystic fluid or positive sonographic Lindsay's sign. COMMON BILE DUCT: Measures 3.3 mm. No stones. No dilatation. PANCREAS: Normal in size and echotexture. No mass. No ductal dilatation. RIGHT KIDNEY: Measures 12.0 cm in length. Normal echogenicity. No calculus, mass, or hydronephrosis. AORTA: No aneurysmal dilatation. IVC: Unremarkable. OTHER FINDINGS: None . IMPRESSION: Mild hepatomegaly. Diffuse increased echogenicity in the liver may reflect hepatic steatosis however parenchymal infectious/ inflammatory etiologies cannot be entirely excluded. Clinical and laboratory correlation is advised. Cholelithiasis.
[2018-06-11 13:55] VITALS: O2SAT 98
[2018-06-11 15:01] VITALS: BP 140/78; PULSE 78; TEMP 977.6
== END 2018-06-11 15:03 | disposition home or self-care (01) ==
LOC: H.ER 06:39
DX: R42 Dizziness and giddiness (principal); K80.20 Calculus of gallbladder without cholecystitis without obstruction; E11.9 Type 2 diabetes mellitus without complications; Z79.84 Long term (current) use of oral hypoglycemic drugs; I10 Essential (primary) hypertension; E78.00 Pure hypercholesterolemia, unspecified

== ENCOUNTER 2018-06-14 08:50 | Emergency (ER) | payer MEDICARE, OTHER ==
[2018-06-14 08:51] VITALS: BMI 39.6
[2018-06-14 11:04] LABS: RENAL EPITHELIAL < 1 /hpf (0-3); SQUAMOUS EPITHIAL 19 /hpf (0-5); URINE BACTERIA RARE (<OCC); URINE BILIRUBIN NEGATIVE (NEGATIVE); URINE BLOOD SMALL (NEGATIVE); URINE CLARITY CLOUDY (Clear); URINE COLOR YELLOW (YELLOW); URINE GLUCOSE (UA) NEG (NEGATIVE); URINE LEUKOCYTE ESTERASE LARGE Leu/uL (Negative); URINE PROTEIN NEGATIVE (NEGATIVE); URINE UROBILINOGEN 0.2-1.0 mg/dL (0.2-1.0)
--- NOTE | 2018-06-14 11:10 | CT ---
Date of service: 06/14/2018 PROCEDURE: CT HEAD WITHOUT CONTRAST. HISTORY: r/o ICH COMPARISON: None available. TECHNIQUE: Axial computed tomography images were obtained through the head/brain without intravenous contrast. Supplemental Coronal and Sagittal projections created and reviewed. Radiation dose: Total exam DLP = 865.73 mGy-cm. This CT exam was performed using one or more of the following dose reduction techniques: Automated exposure control, adjustment of the mA and/or kV according to patient size, and/or use of iterative reconstruction technique. FINDINGS: HEMORRHAGE: No intracranial hemorrhage. BRAIN: No mass effect or edema. No atrophy or chronic microvascular ischemic changes. VENTRICLES: Unremarkable. No hydrocephalus. CALVARIUM: Unremarkable. PARANASAL SINUSES: Unremarkable as visualized. No significant inflammatory changes. MASTOID AIR CELLS: Unremarkable as visualized. No inflammatory changes. OTHER FINDINGS: None. IMPRESSION: No acute intracranial abnormalities. No significant findings to account for the clinical presentation.
[2018-06-14 11:52] LABS: BASO # 0.1 K/uL (0.0-0.2); BASO % 0.7 % (0.0-2.0); EOS # 0.1 K/uL (0.0-0.7); EOS % 0.5 % (0.0-4.0); HEMOGLOBIN 13.7 g/dL (12.0-16.0); LYMPH # 2.3 K/uL (1.0-4.3); LYMPH % 18.1 % (20.0-40.0); MEAN CELL VOLUME 86.8 fl (81.0-99.0); MEAN CORPUSCULAR HEMOGLOBIN 28.2 pg (27.0-31.0); MEAN CORPUSCULAR HGB CONC 32.5 g/dL (33.0-37.0); MEAN PLATELET VOLUME 11.2 fl (7.2-11.7); MONO # 0.8 K/uL (0.0-0.8); MONO % 6.2 % (0.0-10.0); NEUT # 9.4 K/uL (1.8-7.0); NEUT % 74.5 % (50.0-75.0); NRBC % 0.1 % (0.0-0.0); RBC 4.87 Mil/uL (3.80-5.20); RED CELL DISTRIBUTION WIDTH 13.9 % (11.5-14.5); WHITE BLOOD COUNT 12.6 K/uL (4.8-10.8)
[2018-06-14 11:57] LABS: ALB/GLOB RATIO 1.4 (1.0-2.1); ALBUMIN 4.5 g/dL (3.5-5.0); ALT/SGPT 29 U/L (9-52); AST/SGOT 30 U/L (14-36); BLOOD UREA NITROGEN 11 mg/dl (7-17); CALCIUM 9.6 mg/dL (8.4-10.2); GFR NON-AFRICAN AMERICAN > 60
[2018-06-14 12:08] LABS: B-TYPE NATRIURETIC PEPTIDE 43.3 pg/ml (0-900)
[2018-06-14] MEDS ORDERED: cefTRIAXone (Rocephin) 1 gm Inj ONE (12:42)
--- NOTE | 2018-06-14 12:51 | ED PDOC ---
HPI: General Adult Time Seen by Provider: 06/14/18 09:45 Chief Complaint (Nursing): Dizziness/Lightheaded Chief Complaint (Provider): dizzines, anxiety, nausea History Per: Patient, [place] (v[place] but patient then preferred to speak montenegrin w family) History/Exam Limitations: no limitations Onset/Duration Of Symptoms: Gradual (x weeks) Current Symptoms Are (Timing): Intermittent Episodes Severity: Moderate Recently: Seen In ED, Treated By A Physician Additional Complaint(s): 77yo female presents c/o ongoing intermittent nausea, dizziness, generalized weakness and anxiety. Denied abdominal pain, vomiting, syncope, focal weakness, suicidal thoughts or chest pain. Past Medical History Vital Signs: Last Vital Signs Temp 98.0 F 06/14/18 09:02 Pulse 86 06/14/18 09:28 Resp 15 06/14/18 09:28 BP 134/84 06/14/18 09:28 Pulse Ox 98 06/14/18 09:28 - Medical History PMH: Arthritis, Back Problems, Diabetes (type II), HTN, Hypercholesterolemia, Hyperlipidemia, Osteoporosis, Chronic Pain (back) Denies: HIV, Chronic Kidney Disease - Surgical History Surgical History: (x3) - Family History Family History: States: Unknown Family Hx - Home Medications Home Medications: Ambulatory Orders Medication Instructions Recorded Simvastatin 20 mg PO HS 10/17/14 Valsartan/Hydrochlorothiazide 1 tab PO DAILY 10/17/14 [Valsartan-Hctz 160-12.5 mg Tab] metFORMIN [glucOPHAGE] 500 mg PO BID 02/28/16 Cephalexin [Keflex] 500 mg PO TID #15 cap 06/14/18 Cholecalciferol (Vitamin D3) 2,000 unit PO DAILY 06/19/18 [Vitamin D3] Meclizine [Meclizine*] 25 mg PO Q8 PRN 06/19/18 - Allergies Allergies/Adverse Reactions: Allergies Allergy/AdvReac Type Severity Reaction Status Date / Time No Known Allergies Allergy Verified 06/19/18 12:54 - Laboratory Results Result Diagrams: 06/14/18 11:25 06/14/18 11:25 - ECG O2 Sat by Pulse Oximetry: 98 Medical Decision Making Medical Decision Making: labs and head CT performed and results reviewed UA c/w UTI crisis consult performed, clear for discharge Rx Abx for UTI, followup PMD 2-3 days Disposition - Clinical Impression Clinical Impression: UTI (urinary tract infection), Depression, Dizziness - Patient ED Disposition Is Patient to be Admitted: No - Disposition Referrals: [facility] [Outside] Disposition: Routine/Home Disposition Time: 13:00 Condition: IMPROVED Additional Instructions: Followup with appointment with [facility] as scheduled this month, they can speak to you about home health aide. Return to ER for any new or worsening symptoms. Take antibiotic as directed. Prescriptions: Cephalexin [Keflex] 500 mg PO TID #15 cap Instructions: Urinary Tract Infections in Adults, Depression, Adult (DC), Dizziness, Nonvertigo, (DC), Tips for How to Help Your Mood Forms: [facility] (French) Print Language: KINYARWANDA
[2018-06-14 14:48] VITALS: BP 138/79; PULSE 88; RESP 16; TEMP 98.4
--- NOTE | 2018-06-14 20:06 | CARD ---
APPROVED REPORT Date of service: 06/14/2018 EKG Measurement Heart [id number] <Conclusion> Normal sinus rhythm Low voltage QRS Borderline ECG
[2018-06-22 16:41] VITALS: O2SAT 98
== END 2018-06-14 14:48 | disposition home or self-care (01) ==
LOC: H.ER 08:50
DX: N39.0 Urinary tract infection, site not specified (principal); R42 Dizziness and giddiness; F32.9 Major depressive disorder, single episode, unspecified
CPT/HCPCS: 70450; 80053; 81003; 83880; 84443; 84484; 85025; 87086; 87181; 93005; 96360; 99283; J0696

== ENCOUNTER 2018-06-19 12:40 | Observation (INO) | payer MEDICARE, OTHER ==
[2018-06-19 12:40] VITALS: BMI 39.6
[2018-06-19] MEDS ORDERED: Sodium Chloride 0.9% 500 ML IV STA (13:21)
[2018-06-19] MEDS ORDERED: Iohexol 240 (50 ml) PO STA (13:21)
--- NOTE | 2018-06-19 13:33 | ED PDOC ---
HPI: Abdomen Time Seen by Provider: 06/19/18 13:01 Chief Complaint (Nursing): Abdominal Pain Chief Complaint (Provider): Abd pain History Per: Patient History/Exam Limitations: no limitations Onset/Duration Of Symptoms: Days (today) Additional Complaint(s): Pt. with abd pain epigastric. No chest pain, nausea, vomit, diarrhea, weakness, headaches, dizziness, dysuria. No back pain. No fever, new food. Past Medical History Reviewed: Nursing Documentation, Vital Signs Vital Signs: Last Vital Signs Temp 97.7 F 06/19/18 12:55 Pulse 72 06/19/18 12:55 Resp 18 06/19/18 12:55 BP 134/66 06/19/18 12:55 Pulse Ox 100 06/19/18 12:55 - Medical History PMH: Arthritis, Back Problems, Diabetes (type II), HTN, Hypercholesterolemia, Hyperlipidemia, Osteoporosis, Chronic Pain (back) Denies: Hepatitis, HIV, Chronic Kidney Disease, Seizures, Sexually Transmitted Disease - Surgical History Surgical History: (x3) - Family History Family History: States: Unknown Family Hx - Home Medications Home Medications: Ambulatory Orders Medication Instructions Recorded Simvastatin 20 mg PO HS 10/17/14 Valsartan/Hydrochlorothiazide 1 tab PO DAILY 10/17/14 [Valsartan-Hctz 160-12.5 mg Tab] metFORMIN [glucOPHAGE] 500 mg PO BID 02/28/16 Ibuprofen [Motrin] 600 mg PO Q6 PRN 12/11/17 Naproxen 500 mg PO BID #20 tab 04/29/18 Ibuprofen [Motrin Tab] 600 mg PO Q8 PRN #30 tab 05/01/18 Lidocaine 5% [Lidoderm] 1 ea TD DAILY PRN #20 patch 05/01/18 Meclizine [Meclizine*] 25 mg PO Q8 #15 tab 06/11/18 Cephalexin [cephalexin] 500 mg PO TID #15 cap 06/14/18 - Allergies Allergies/Adverse Reactions: Allergies Allergy/AdvReac Type Severity Reaction Status Date / Time No Known Allergies Allergy Verified 06/19/18 12:54 Review of Systems ROS Statement: Except As Marked, All Systems Reviewed And Found Negative Gastrointestinal: Positive for: Abdominal Pain Physical Exam - Reviewed Nursing Documentation Reviewed: Yes Vital Signs Reviewed: Yes - Physical Exam Appears: Positive for: Non-toxic, No Acute Distress Head Exam: Positive for: ATRAUMATIC, NORMAL INSPECTION, NORMOCEPHALIC Skin: Positive for: Normal Color, Warm, DRY Eye Exam: Positive for: EOMI, Normal appearance, PERRL ENT: Positive for: Normal ENT Inspection Neck: Positive for: Normal, Painless ROM Cardiovascular/Chest: Positive for: Regular Rate, Rhythm Respiratory: Positive for: CNT, Normal Breath Sounds Gastrointestinal/Abdominal: Positive for: Soft, Tenderness (epigastric) Back: Positive for: Normal Inspection. Negative for: L CVA Tenderness, R CVA Tenderness Extremity: Positive for: Normal ROM. Negative for: Tenderness, Pedal Edema Neurologic/Psych: Positive for: Alert, Oriented - Laboratory Results Result Diagrams: 06/19/18 13:20 06/19/18 13:20 Interpretation Of Abn Labs: 3.4 k; 12 wbc - ECG ECG: Positive for: Interpreted By Me, Viewed By Me ECG Rhythm: Positive for: Normal QRS, Normal ST Segment, Sinus Rhythm O2 Sat by Pulse Oximetry: 100 Pulse Ox Interpretation: Normal - Progress ED Course And Treament: 1816: Stable. AAOx3. Will need admit for appendicitis. Spoke with surgery who will consult. [facility] resident spoken to and will admit under Dr. Romeo. Disposition - Clinical Impression Clinical Impression: Appendicitis - Patient ED Disposition Is Patient to be Admitted: Yes Counseled Patient/Family Regarding: Studies Performed, Diagnosis - Disposition Disposition Time: 18:18 Condition: STABLE - Pt Status Changed To: Hospital Disposition Of: Inpatient - Admit Certification Admit to Inpatient:: After my assessment, the patient will require hospitalization for at least two midnights. This is because of the severity of symptoms shown, intensity of services needed, and/or the medical risk in this patient being treated as an outpatient. - POA Present On Arrival: None
[2018-06-19] MEDS ORDERED: Iohexol 240 (50 ml) ONE (13:38)
[2018-06-19 13:42] LABS: BASO # 0.1 K/uL (0.0-0.2); BASO % 0.9 % (0.0-2.0); EOS # 0.1 K/uL (0.0-0.7); EOS % 1.2 % (0.0-4.0); HEMOGLOBIN 13.8 g/dL (12.0-16.0); LYMPH % 24.9 % (20.0-40.0); MEAN CELL VOLUME 86.1 fl (81.0-99.0); MEAN CORPUSCULAR HEMOGLOBIN 28.5 pg (27.0-31.0); MEAN PLATELET VOLUME 10.3 fl (7.2-11.7); NEUT # 7.8 K/uL (1.8-7.0); RBC 4.84 Mil/uL (3.80-5.20); RED CELL DISTRIBUTION WIDTH 13.8 % (11.5-14.5)
[2018-06-19 14:09] LABS: ALB/GLOB RATIO 1.4 (1.0-2.1); ALBUMIN 4.4 g/dL (3.5-5.0); ALT/SGPT 26 U/L (9-52); AST/SGOT 27 U/L (14-36); BLOOD UREA NITROGEN 12 mg/dl (7-17); CALCIUM 9.6 mg/dL (8.4-10.2); GFR NON-AFRICAN AMERICAN > 60; LIPASE 41 U/L (23-300)
[2018-06-19] MEDS ORDERED: Sodium Chloride 0.9% 50 ML IV ONE (15:41)
[2018-06-19] MEDS ORDERED: Iohexol 300 100 ML IJ ONE (15:41)
--- NOTE | 2018-06-19 18:08 | CT ---
Date of service: 2018-06-19 16:15:25 PROCEDURE: CT Abdomen and Pelvis. HISTORY: Abdominal pain. COMPARISON: Comparison made with CT scan abdomen pelvis 10/17/2017. TECHNIQUE: Contiguous axial images of the abdomen and pelvis. Oral contrast was administered. No IV contrast given. Coronal and Sagittal reformats generated. Radiation dose: Total exam DLP = 915.35 mGy-cm. This CT exam was performed using one or more of the following dose reduction techniques: Automated exposure control, adjustment of the mA and/or kV according to patient size, and/or use of iterative reconstruction technique. FINDINGS: LOWER THORAX: Minor passive/dependent type atelectasis both lung bases. There also appears to be some scarring in the lingular and to a lesser degree middle lobe regions as well. No evidence of effusion or the basilar pneumothorax. Heart size is mildly enlarged. No significant pericardial effusion. There is a small hiatal hernia. LIVER: Liver is mildly enlarged measuring over 19 cm in CC dimension. Mild diffuse fatty hepatic infiltration. No obvious hepatic mass collection or calcification. Portal and splenic veins appear opacified. GALLBLADDER AND BILE DUCTS: Cholelithiasis.. No pericholecystic fluid collections. PANCREAS: Unremarkable. No mass. No ductal dilatation. Pancreas is mildly atrophic and fatty replaced. There are no pancreatic masses collections or calcifications. SPLEEN: Spleen exhibits normal size and attenuation pattern without mass collection or calcification.. ADRENALS: No adrenal lesions are identified. KIDNEYS AND URETERS: Kidneys demonstrate relatively symmetric nephrograms. No evidence of nephrolithiasis or hydronephrosis.. BLADDER: Urinary bladder is incompletely distended which in part accounts for thick-walled appearance. Possibility of a cystitis should also be excluded. Correlation with urinalysis recommended. REPRODUCTIVE: There is a linear which bone appearing hyperdense structure within the endometrial canal likely representing in situ IUD. There appears to be thickening of the endometrium for this patient's stated age.. Recommend followup pelvic ultrasound for further evaluation and exclude endometrial pathology such as endometrial hyperplasia, polyps or endometrial carcinoma. APPENDIX: The tip of the appendix appears slightly dilated measuring approximately 8 mm in greatest diameter with some minimal of enhancement of the wall of the tip of the appendix. The proximal half of the appendix is opacified however no contrast material extends distally into the tip of the appendix. Some very minimal infiltration changes in the adjacent mesentery also present. Collectively these findings could represent an early acute appendicitis. Clinical correlation with history physical exam and laboratory values recommended. BOWEL: Evaluation of the bowel is limited due to incomplete opacification. There is incomplete distension of the stomach which in part accounts for thick-walled appearance. However the possibility of gastritis or other intrinsic/invasive wall lesion cannot be excluded. Clinical correlation recommended. Visualized loops of small bowel exhibit normal contour and caliber. No evidence of acute mechanical small bowel obstruction with oral contrast material extending into the colon to the level of the distal descending colon region. Scattered colonic diverticula are present however no radiographic evidence of acute diverticulitis. PERITONEUM: Unremarkable. No fluid collection. No free air. There appears to be 2 tiny fat containing ventral wall hernias which are below the umbilicus one to the left of midline and the 2nd slightly more inferiorly located hernia also slightly to the left of midline. LYMPH NODES: Unremarkable. No enlarged lymph nodes. VASCULATURE: Unremarkable. No aortic aneurysm. Minor aortic atherosclerotic calcification or mural plaque present. BONES: Mild multilevel degenerative spondylosis of the lower thoracic and lumbar spine. There are no acute compression fractures no retropulsed fragments. Vertebral bodies exhibit relatively normal stature. OTHER FINDINGS: None. IMPRESSION: Possible mild early acute appendicitis as detailed above.. Clinical correlation recommended.. Cholelithiasis. Mild hepatomegaly with mild fatty hepatic infiltration. In situ IUD with the thickened appearing endometrium. Recommend followup pelvic ultrasound to exclude endometrial pathology such as endometrial hyperplasia, polyps or endometrial carcinoma. Few scattered colonic diverticula without radiographic evidence of acute diverticulitis. Findings discussed with Dr. Sinclair at approximately 6:05 p.m. with written down and read back verification.
[2018-06-19] MEDS ORDERED: Piperacillin/Tazobact 3.375 GM in Sodium Chloride 0.9% 100 ML IV STA (18:11)
[2018-06-19] MEDS ORDERED: Piperacillin/Tazobact 3.375 gm Inj IVPB ONE (18:29)
--- NOTE | 2018-06-19 19:08 | CP.PCM.HP ---
History of Present Illness - History of Present Illness History of Present Illness: General Surgery H&P for Dr. Liao CC: Abdominal pain HPI: 77 year old female, past medical history significant for HTN, DM, HLD, presents to the emergency department with nonradiating, intermittent, epigastric pain. Patient has been having similar symptoms for the past 2 weeks and was recently discharged with Pepcid however she has not taken any prescribed medications for symptoms. Nothing aggravates her abdominal pain at this time. The pain medication given in the ED alleviated her symptoms. Patient had a bowel movement 30 minutes prior but complains of bloating and burping. States she has had decreased apetite recently, but no unintentional weight loss. Patient is passing gas. She denies any fever, chills, nausea, vomiting, shortness of breath, chest pain, or urinary symptoms. PMH: See above PSH: 3 c-sections FH: Noncontributory SH: Denies tobacco, alcohol, drugs ALL: NKDA Meds: See MAR Present on Admission - Present on Admission Any Indicators Present on Admission: No Review of Systems - Constitutional Constitutional: Weakness. absent: Chills, Fever - EENT Eyes: absent: Blurred Vision, Change in Vision Nose/Mouth/Throat: absent: Nasal Congestion, Nasal Discharge - Cardiovascular Cardiovascular: absent: Chest Pain, Dyspnea - Respiratory Respiratory: absent: Cough, Dyspnea - Gastrointestinal Gastrointestinal: Abdominal Pain, Belching, Bloating. absent: Diarrhea, Nausea, Vomiting - Genitourinary Genitourinary: absent: Difficulty Urinating, Dysuria - Musculoskeletal Musculoskeletal: absent: Back Pain, Neck Pain - Integumentary Integumentary: absent: Bleeding Lesions, Changing Lesions - Neurological Neurological: absent: Confusion, Dizziness - Psychiatric Psychiatric: absent: Anxiety, Depression Past Patient History - Infectious Disease Hx of Infectious Diseases: None - Past Medical History & Family History Past Medical History?: Yes - Past Social History Smoking Status: Former Smoker - CARDIAC Hx Hypercholesterolemia: Yes Hx Hypertension: Yes - PULMONARY Hx Tuberculosis: No - NEUROLOGICAL Hx Seizures: No - HEENT Hx HEENT Problems: No - RENAL Hx Chronic Kidney Disease: No - ENDOCRINE/METABOLIC Hx Endocrine Disorders: Yes Hx Diabetes Mellitus Type 2: Yes - HEMATOLOGICAL/ONCOLOGICAL Hx Human Immunodeficiency Virus (HIV): No - INTEGUMENTARY Hx Dermatological Problems: No - MUSCULOSKELETAL/RHEUMATOLOGICAL Hx Arthritis: Yes Hx Osteoporosis: Yes - GASTROINTESTINAL Hx Gastrointestinal Disorders: No - GENITOURINARY/GYNECOLOGICAL Hx Sexually Transmitted Disorders: No - PSYCHIATRIC Hx Emotional Abuse: No Hx Physical Abuse: No Hx Substance Use: No - SURGICAL HISTORY Hx Surgeries: Yes Hx Section: Yes (x3) - ANESTHESIA Hx Malignant Hyperthermia: No Meds Allergies/Adverse Reactions: Allergies Allergy/AdvReac Type Severity Reaction Status Date / Time No Known Allergies Allergy Verified 06/19/18 12:54 Physical Exam - Constitutional Appears: Well, Non-toxic, No Acute Distress - Head Exam Head Exam: ATRAUMATIC, NORMAL INSPECTION, NORMOCEPHALIC - Eye Exam Eye Exam: EOMI - ENT Exam ENT Exam: Mucous Membranes Moist - Respiratory Exam Respiratory Exam: NORMAL BREATHING PATTERN. absent: Respiratory Distress - Cardiovascular Exam Cardiovascular Exam: REGULAR RHYTHM. absent: Tachycardia - GI/Abdominal Exam GI & Abdominal Exam: Normal Bowel Sounds, Soft. absent: Distended, Guarding, Rebound, Tenderness Additional comments: Infraumbilical scars from previous c-sections - Neurological Exam Neurological exam: Alert, Oriented x3 - Psychiatric Exam Psychiatric exam: Normal Affect, Normal Mood - Skin Skin Exam: Dry, Intact, Normal Color, Warm Results - Vital Signs Recent Vital Signs: Last Vital Signs Temp 97.7 F 06/19/18 12:55 Pulse 72 06/19/18 12:55 Resp 18 06/19/18 12:55 BP 134/66 06/19/18 12:55 Pulse Ox 100 06/19/18 18:18 - Labs Result Diagrams: 06/19/18 13:20 06/19/18 13:20 Labs: Laboratory Results - last 24 hr 06/19/18 06/19/18 13:20 13:20 WBC 12.0 H RBC 4.84 Hgb 13.8 Hct 41.7 MCV 86.1 MCH 28.5 MCHC 33.0 RDW 13.8 Plt Count 208 MPV 10.3 Neut % (Auto) 65.0 Lymph % (Auto) 24.9 [place] % (Auto) 8.0 Eos % (Auto) 1.2 Baso % (Auto) 0.9 Neut # (Auto) 7.8 H Lymph # (Auto) 3.0 [place] # (Auto) 1.0 H Eos # (Auto) 0.1 Baso # (Auto) 0.1 Sodium 138 Potassium 3.4 L Chloride 95 L Carbon Dioxide 32 H Anion Gap 14 BUN 12 Creatinine 0.7 Est GFR ( Amer) > 60 Est GFR (Non-Af Amer) > 60 Random Glucose 126 H Calcium 9.6 Total Bilirubin 0.9 AST 27 ALT 26 Alkaline Phosphatase 49 Troponin I < 0.0120 Total Protein 7.7 Albumin 4.4 Globulin 3.2 Albumin/Globulin Ratio 1.4 Lipase 41 Assessment & Plan - Assessment and Plan (Free Text) Assessment: 77F w/ epigastric abdominal pain 2/2 appendicitis vs. biliary cholic vs. gastritis CT scan shows cholelithiasis and early onset acute appendicitis, no free fluid, no free air Plan: Admit for observation NPO IVF IV Abx Antiemetics and analgesics AM labs Monitor vitals Serial abdominal exams Further recommendations per Dr. Yanni Cameron PGY1
[2018-06-19] MEDS: Lactated Ringer's 1,000 ML IV SCH ×2 (20:00→22:38)
--- NOTE | 2018-06-19 20:49 | CARD ---
APPROVED REPORT Date of service: 06/19/2018 EKG Measurement Heart [id number] <Conclusion> Normal sinus rhythm Normal ECG
[2018-06-19] MEDS ORDERED: Piperacillin/Tazobact 3.375 GM in Sodium Chloride 0.9% 100 ML IVPB SCH (21:00)
[2018-06-19] MEDS ORDERED: Dextrose 50% SYRINGE Inj (50 ml) IV PRN (21:30)
[2018-06-19] MEDS ORDERED: Glucagon Recombinant 1 mg Inj IM PRN (21:30)
[2018-06-19] MEDS ORDERED: Insulin Lispro (humaLOG) 100 Units/ml Inj SC SCH (21:30)
[2018-06-19] MEDS ORDERED: MECLIZINE 25 MG PO PRN (21:35)
[2018-06-20] MEDS: Piperacillin/Tazobact 3.375 GM in Sodium Chloride 0.9% 100 ML IVPB SCH ×4 (01:07→18:39)
[2018-06-20] MEDS: Lactated Ringer's 1,000 ML IV SCH ×2 (02:40→05:17)
[2018-06-20 06:32] LABS: HEMOGLOBIN 12.5 g/dL (12.0-16.0); MEAN CELL VOLUME 86.6 fl (81.0-99.0); MEAN CORPUSCULAR HEMOGLOBIN 28.7 pg (27.0-31.0); MEAN CORPUSCULAR HGB CONC 33.2 g/dL (33.0-37.0); RBC 4.34 Mil/uL (3.80-5.20); RED CELL DISTRIBUTION WIDTH 13.8 % (11.5-14.5); WHITE BLOOD COUNT 10.3 K/uL (4.8-10.8)
[2018-06-20] MEDS ORDERED: Lactated Ringer's 1,000 ML IV SCH (06:33)
[2018-06-20 06:54] LABS: ALB/GLOB RATIO 1.3 (1.0-2.1); ALBUMIN 3.6 g/dL (3.5-5.0); ALT/SGPT 30 U/L (9-52); AST/SGOT 22 U/L (14-36); BLOOD UREA NITROGEN 8 mg/dl (7-17); CALCIUM 8.9 mg/dL (8.4-10.2); GFR NON-AFRICAN AMERICAN > 60
--- NOTE | 2018-06-20 07:28 | CP.PCM.PN ---
Subjective - Date & Time of Evaluation Date of Evaluation: 06/20/18 Time of Evaluation: 07:25 - Subjective Subjective: SURGERY NOTE FOR DR. ECHOLS 77F seen and examined at bedside. Patient states abdominal discomfort has resolved. She denies nausea, vomiting, fevers, or chills. States she is hungry and would like to eat. Objective - Vital Signs/Intake and Output Vital Signs (last 24 hours): Temp Pulse Resp BP Pulse Ox 97.8 F 56 L 18 133/67 96 06/20/18 00:02 06/20/18 00:02 06/20/18 00:02 06/20/18 00:02 06/20/18 00:02 - Medications Medications: Current Medications Dextrose (Dextrose 50% Inj) 0 ml IV STAT PRN; Protocol PRN Reason: Hypoglycemia Protocol Dextrose (Glutose 15) 0 gm PO ONCE PRN; Protocol PRN Reason: Hypoglycemia Protocol Glucagon (Glucagen Diagnostic Kit) 0 mg IM STAT PRN; Protocol PRN Reason: Hypoglycemia Protocol Piperacillin Sod/Tazobactam (Sod 3.375 gm/ Sodium Chloride) 100 mls @ 100 mls/hr IVPB Q6H ADA; Protocol Last Admin: 06/20/18 01:07 Dose: Not Given Lactated Ringer's (Lactated Ringer's) 1,000 mls @ 100 mls/hr IV .Q10H ADA Insulin Human Lispro (Humalog) 0 units SC CONT ADA; Protocol Losartan Potassium (Cozaar) 25 mg PO DAILY ADA Morphine Sulfate (Morphine) 2 mg IVP Q4 PRN PRN Reason: Pain, moderate (4-7) Ondansetron HCl (Zofran Inj) 4 mg IVP Q6 PRN PRN Reason: Nausea/Vomiting Pantoprazole Sodium (Protonix Inj) 40 mg IVP DAILY ADA - Labs Labs: 06/20/18 05:45 06/20/18 05:45 - Constitutional Appears: Non-toxic, No Acute Distress - Respiratory Exam Respiratory Exam: Clear to Ausculation Bilateral, NORMAL BREATHING PATTERN - Cardiovascular Exam Cardiovascular Exam: REGULAR RHYTHM, +S1, +S2 - GI/Abdominal Exam GI & Abdominal Exam: Soft. absent: Distended, Firm, Guarding, Rigid, Tenderness, Rebound - Neurological Exam Neurological Exam: Alert, Awake Assessment and Plan - Assessment and Plan (Free Text) Assessment: 77F with resolved abdominal pain 2/2 gastritis Plan: - monitor pain - advance diet as tolerated -Further recs discuss with Dr. Yanni Zuniga, PGY3
[2018-06-20] MEDS ORDERED: CEPHALEXIN 500 MG PO SCH (09:00)
[2018-06-20] MEDS ORDERED: Patient's Own Med (Valsartan/Hydrochlorothiazide [Valsartan-Hctz 160-12.5 Mg Tab] 1 TAB) PO SCH (09:00)
[2018-06-20] MEDS: Potassium CL 10mEq/100ml 100 ML IVPB SCH (09:51)
--- NOTE | 2018-06-20 20:41 | CP.PCM.CON ---
History of Present Illness - History of Present Illness History of Present Illness: 77 yo female admitted with epigastric abdominal pain and abnormal CT suggestive of possible mild acute appendicitis.Currently patient feels better and appears comfortable. Review of Systems - Constitutional Constitutional: absent: Chills - EENT Eyes: absent: Blurred Vision Ears: absent: Decreased Hearing Nose/Mouth/Throat: absent: Epistaxis - Cardiovascular Cardiovascular: absent: Chest Pain - Respiratory Respiratory: absent: Dyspnea - Gastrointestinal Gastrointestinal: As Per HPI - Genitourinary Genitourinary: absent: Change in Urinary Stream Past Patient History - Infectious Disease Hx of Infectious Diseases: None - Past Medical History & Family History Past Medical History?: Yes - Past Social History Smoking Status: Former Smoker - CARDIAC Hx Hypercholesterolemia: Yes Hx Hypertension: Yes - PULMONARY Hx Tuberculosis: No - NEUROLOGICAL Hx Seizures: No - HEENT Hx HEENT Problems: No - RENAL Hx Chronic Kidney Disease: No - ENDOCRINE/METABOLIC Hx Endocrine Disorders: Yes Hx Diabetes Mellitus Type 2: Yes - HEMATOLOGICAL/ONCOLOGICAL Hx Human Immunodeficiency Virus (HIV): No - INTEGUMENTARY Hx Dermatological Problems: No - MUSCULOSKELETAL/RHEUMATOLOGICAL Hx Arthritis: Yes Hx Osteoporosis: Yes - GASTROINTESTINAL Hx Gastrointestinal Disorders: No - GENITOURINARY/GYNECOLOGICAL Hx Sexually Transmitted Disorders: No - PSYCHIATRIC Hx Emotional Abuse: No Hx Physical Abuse: No Hx Substance Use: No - SURGICAL HISTORY Hx Surgeries: Yes Hx Section: Yes (x3) - ANESTHESIA Hx Malignant Hyperthermia: No Meds Allergies/Adverse Reactions: Allergies Allergy/AdvReac Type Severity Reaction Status Date / Time No Known Allergies Allergy Verified 06/19/18 12:54 - Medications Medications: Current Medications Dextrose (Dextrose 50% Inj) 0 ml IV STAT PRN; Protocol PRN Reason: Hypoglycemia Protocol Dextrose (Glutose 15) 0 gm PO ONCE PRN; Protocol PRN Reason: Hypoglycemia Protocol Glucagon (Glucagen Diagnostic Kit) 0 mg IM STAT PRN; Protocol PRN Reason: Hypoglycemia Protocol Piperacillin Sod/Tazobactam (Sod 3.375 gm/ Sodium Chloride) 100 mls @ 100 mls/hr IVPB Q6H ADA; Protocol Last Admin: 06/20/18 18:39 Dose: 100 mls/hr Insulin Human Lispro (Humalog) 0 units SC CONT ADA; Protocol Losartan Potassium (Cozaar) 25 mg PO DAILY [facility] Last Admin: 06/20/18 08:23 Dose: Not Given Morphine Sulfate (Morphine) 2 mg IVP Q4 PRN PRN Reason: Pain, moderate (4-7) Ondansetron HCl (Zofran Inj) 4 mg IVP Q6 PRN PRN Reason: Nausea/Vomiting Last Admin: 06/20/18 14:51 Dose: 4 mg Pantoprazole Sodium (Protonix Inj) 40 mg IVP DAILY ADA Last Admin: 06/20/18 08:23 Dose: 40 mg Physical Exam - Constitutional Appears: No Acute Distress - Head Exam Head Exam: ATRAUMATIC - Eye Exam Eye Exam: Normal appearance - ENT Exam ENT Exam: Mucous Membranes Moist - Cardiovascular Exam Cardiovascular Exam: REGULAR RHYTHM, +S1, +S2 - GI/Abdominal Exam GI & Abdominal Exam: Normal Bowel Sounds, Soft, Tenderness Additional comments: mild epigastric tenderness Results - Vital Signs Recent Vital Signs: Last Vital Signs Temp 97.5 F L 06/20/18 16:17 Pulse 79 06/20/18 16:17 Resp 20 06/20/18 16:17 BP 135/75 06/20/18 16:17 Pulse Ox 98 06/20/18 16:17 - Labs Result Diagrams: 06/20/18 05:45 06/20/18 05:45 Labs: Laboratory Results - last 24 hr 06/19/18 06/20/18 06/20/18 21:11 05:44 05:45 WBC 10.3 RBC 4.34 Hgb 12.5 Hct 37.6 MCV 86.6 MCH 28.7 MCHC 33.2 RDW 13.8 Plt Count 199 Sodium Potassium Chloride Carbon Dioxide Anion Gap BUN Creatinine Est GFR ( Amer) Est GFR (Non-Af Amer) POC Glucose (mg/dL) 144 H 142 H Random Glucose Calcium Phosphorus Magnesium Total Bilirubin AST ALT Alkaline Phosphatase Total Protein Albumin Globulin Albumin/Globulin Ratio 06/20/18 06/20/18 06/20/18 05:45 11:02 15:53 WBC RBC Hgb Hct MCV MCH MCHC RDW Plt Count Sodium 138 Potassium 3.3 L Chloride 99 Carbon Dioxide 30 Anion Gap 12 BUN 8 Creatinine 0.8 Est GFR ( Amer) > 60 Est GFR (Non-Af Amer) > 60 POC Glucose (mg/dL) 134 H 145 H Random Glucose 140 H Calcium 8.9 Phosphorus 4.0 Magnesium 2.0 Total Bilirubin 1.1 AST 22 ALT 30 Alkaline Phosphatase 42 Total Protein 6.4 Albumin 3.6 Globulin 2.8 Albumin/Globulin Ratio 1.3 - Imaging and Cardiology CT scan - abdomen Status: Image reviewed by me, Report reviewed by me Assessment & Plan (1) Epigastric abdominal pain Assessment and Plan: Patient states her abdominal pain has improved with pantoprazole and she is tolerating her diet. CT shows possible gastric wall thickening vs under distention. She prefers at the moment not to have upper endoscopy and she can be followed for this as an outpatient. Status: Acute
[2018-06-21 00:06] VITALS: O2SAT 96
[2018-06-21] MEDS: Piperacillin/Tazobact 3.375 GM in Sodium Chloride 0.9% 100 ML IVPB SCH ×2 (00:27→06:00)
[2018-06-21 08:45] VITALS: BP 145/84; PULSE 72; RESP 20; TEMP 98.1
--- NOTE | 2018-06-21 11:39 | CP.PCM.DIS ---
Provider - Provider Date of Admission: 06/19/18 18:13 Attending physician: Michael Liao MD Consults: 06/19/18 18:19 Surgery [General Surgery Consult] Stat Comment: Consulting Provider: Michael Liao Consulting Physician: Michael Liao Reason for Consult: appendicitis 06/20/18 09:33 Gastroenterology Consult Routine Comment: Consulting Provider: Irineo Falcon Consulting Physician: Irineo Falcon Reason for Consult: Gastritis Time Spent in preparation of Discharge (in minutes): 60 Hospital Course - Lab Results Lab Results: Micro Results 06/19/18 18:44 Blood Blood Culture - Preliminary NO GROWTH AFTER 24 HOURS 06/19/18 18:44 Blood Blood Culture - Preliminary NO GROWTH AFTER 24 HOURS Most Recent Lab Values WBC 10.3 K/uL (4.8-10.8) 06/20/18 05:45 RBC 4.34 Mil/uL (3.80-5.20) 06/20/18 05:45 Hgb 12.5 g/dL (12.0-16.0) 06/20/18 05:45 Hct 37.6 % (34.0-47.0) 06/20/18 05:45 MCV 86.6 fl (81.0-99.0) 06/20/18 05:45 MCH 28.7 pg (27.0-31.0) 06/20/18 05:45 MCHC 33.2 g/dL (33.0-37.0) 06/20/18 05:45 RDW 13.8 % (11.5-14.5) 06/20/18 05:45 Plt Count 199 K/uL (130-400) 06/20/18 05:45 MPV 10.3 fl (7.2-11.7) 06/19/18 13:20 Neut % (Auto) 65.0 % (50.0-75.0) 06/19/18 13:20 Lymph % (Auto) 24.9 % (20.0-40.0) 06/19/18 13:20 Elbert % (Auto) 8.0 % (0.0-10.0) 06/19/18 13:20 Eos % (Auto) 1.2 % (0.0-4.0) 06/19/18 13:20 Baso % (Auto) 0.9 % (0.0-2.0) 06/19/18 13:20 Neut # (Auto) 7.8 K/uL (1.8-7.0) H 06/19/18 13:20 Lymph # (Auto) 3.0 K/uL (1.0-4.3) 06/19/18 13:20 Elbert # (Auto) 1.0 K/uL (0.0-0.8) H 06/19/18 13:20 Eos # (Auto) 0.1 K/uL (0.0-0.7) 06/19/18 13:20 Baso # (Auto) 0.1 K/uL (0.0-0.2) 06/19/18 13:20 Sodium 138 mmol/l (132-148) 06/20/18 05:45 Potassium 3.3 MMOL/L (3.6-5.0) L 06/20/18 05:45 Chloride 99 mmol/L (98-107) 06/20/18 05:45 Carbon Dioxide 30 mmol/L (22-30) 06/20/18 05:45 Anion Gap 12 (10-20) 06/20/18 05:45 BUN 8 mg/dl (7-17) 06/20/18 05:45 Creatinine 0.8 mg/dl (0.7-1.2) 06/20/18 05:45 Est GFR ( Amer) > 60 06/20/18 05:45 Est GFR (Non-Af Amer) > 60 06/20/18 05:45 POC Glucose (mg/dL) 142 mg/dL (65-110) H 06/21/18 10:59 Random Glucose 140 mg/dL (65-105) H 06/20/18 05:45 Calcium 8.9 mg/dL (8.4-10.2) 06/20/18 05:45 Phosphorus 4.0 mg/dl (2.5-4.5) 06/20/18 05:45 Magnesium 2.0 MG/DL (1.6-2.3) 06/20/18 05:45 Total Bilirubin 1.1 mg/dl (0.2-1.3) 06/20/18 05:45 AST 22 U/L (14-36) 12/20/18 05:45 ALT 30 U/L (9-52) 06/20/18 05:45 Alkaline Phosphatase 42 U/L (38-126) 06/20/18 05:45 Troponin I < 0.0120 ng/mL (0.00-0.120) 06/19/18 13:20 Total Protein 6.4 G/DL (6.3-8.2) 06/20/18 05:45 Albumin 3.6 g/dL (3.5-5.0) 06/20/18 05:45 Globulin 2.8 gm/dL (2.2-3.9) 06/20/18 05:45 Albumin/Globulin Ratio 1.3 (1.0-2.1) 06/20/18 05:45 Lipase 41 U/L (23-300) 06/19/18 13:20 C. difficile Ag & Toxin Negative (NEGATIVE) 06/21/18 05:30 - Hospital Course Hospital Course: 77 year old female, past medical history of hypertension, DM, and HLD, presented to the emergency department with epigastric abdominal pain. Patient has been coming to the ER repeatedly over the past 2 weeks for similar symptoms. Patients vitals remained stable. Labs were all within normal limits. CT scan of the abdomen/pelvis showed possible acute early appendicitis for which patient was admitted. Antibiotics, fluids, and pain medication were initiated. Patient's pain resolved. During admission she had multiple episodes of diarrhea that resolved. Patient refused inpatient endoscopy and instructed to follow up with GI outpatient for EGD. Above is a brief summary. For a detailed record of patients hospital course, please refer to medical records. Discharge Exam - Head Exam Head Exam: ATRAUMATIC, NORMAL INSPECTION, NORMOCEPHALIC - Eye Exam Eye Exam: EOMI - ENT Exam ENT Exam: Mucous Membranes Moist - Respiratory Exam Respiratory Exam: NORMAL BREATHING PATTERN. absent: Respiratory Distress - Cardiovascular Exam Cardiovascular Exam: REGULAR RHYTHM - GI/Abdominal Exam GI & Abdominal Exam: Normal Bowel Sounds, Soft. absent: Distended, Tenderness - Neurological Exam Neurological exam: Alert, Oriented x3 - Psychiatric Exam Psychiatric exam: Normal Affect, Normal Mood - Skin Skin Exam: Dry, Intact, Normal Color, Warm Discharge Plan - Follow Up Plan Condition: GOOD Disposition: HOME/ ROUTINE Instructions: Appendicitis, Adult (DC), Gallstones (DC) Additional Instructions: Please follow up with the Water Control Supervisor for outpatient endoscopy. Follow up with your surgeon, Dr. Liao, as needed. Please resume home medications and regular diet as tolerated. Please take prescription medications. If symptoms worsen, please return to the ED. Referrals: [facility] [place] [Outside] Michael Liao MD [Staff Provider] -
[2018-06-21] MEDS ORDERED: Lidocaine 1% Inj (20ml) ONE (15:44)
== END 2018-06-21 15:15 | disposition home or self-care (01) ==
LOC: H.ER 12:40 → H.ERHOLD 18:13 → INTOOBSV 18:13 → H.MEDSURG1 20:48
PROVIDERS: ADMIT Specialist; ATTEND Specialist
DX: R10.13 Epigastric pain (principal); K29.70 Gastritis, unspecified, without bleeding; R14.0 Abdominal distension (gaseous); G89.29 Other chronic pain; E11.9 Type 2 diabetes mellitus without complications; I10 Essential (primary) hypertension; E78.5 Hyperlipidemia, unspecified; E78.00 Pure hypercholesterolemia, unspecified; M81.0 Age-related osteoporosis without current pathological fracture; Z87.891 Personal history of nicotine dependence
CPT/HCPCS: 36415; 74177; 80053; 82948; 83690; 83735; 84100; 84484; 85025; 85027; 87040; 87230; 93005; 96374; 99285; C9113; G0378; J2405; J2543; J3480; J7040; J7120; Q9966; Q9967

== ENCOUNTER 2018-06-22 07:27 | Observation (INO) | payer MEDICARE, OTHER ==
[2018-06-22 07:30] VITALS: BMI 40.6
[2018-06-22] MEDS ORDERED: Sodium Chloride 0.9% 1,000 ML IV STA (08:20)
[2018-06-22] MEDS ORDERED: Sucralfate 1 gm/10 ml Oral Susp UD PO STA (08:23)
[2018-06-22] MEDS ORDERED: Sucralfate 1 gm/10 ml Oral Susp UD ONE (08:44)
[2018-06-22 09:01] LABS: BASO # 0.1 K/uL (0.0-0.2); BASO % 0.5 % (0.0-2.0); EOS # 0.1 K/uL (0.0-0.7); EOS % 0.8 % (0.0-4.0); HEMOGLOBIN 13.1 g/dL (12.0-16.0); LYMPH # 2.5 K/uL (1.0-4.3); MEAN CELL VOLUME 88.7 fl (81.0-99.0); MEAN CORPUSCULAR HEMOGLOBIN 28.4 pg (27.0-31.0); MEAN PLATELET VOLUME 10.5 fl (7.2-11.7); MONO # 0.7 K/uL (0.0-0.8); MONO % 5.9 % (0.0-10.0); NEUT # 8.4 K/uL (1.8-7.0); NEUT % 71.8 % (50.0-75.0); NRBC % 0.1 % (0.0-0.0); RBC 4.61 Mil/uL (3.80-5.20); WHITE BLOOD COUNT 11.7 K/uL (4.8-10.8)
--- NOTE | 2018-06-22 09:29 | ED PDOC ---
HPI: Abdomen Time Seen by Provider: 06/22/18 07:39 Chief Complaint (Nursing): Abdominal Pain Chief Complaint (Provider): recurrent pain History Per: Patient, Family, Other (prior records) History/Exam Limitations: no limitations Onset/Duration Of Symptoms: Intermittent Episodes Current Symptoms Are (Timing): Still Present Location Of Pain/Discomfort: Epigastric Quality Of Discomfort: Sharp Associated Symptoms: Nausea, Loss Of Appetite. denies: Urinary Symptoms Exacerbating Factors: Food Alleviating Factors: None Additional History Per: Prior Records Additional Complaint(s): 77yo female represents to ED c/o epigastric abdominal pain. Was discharged from hospital yesterday after several day stay for abdominal pain. Seen by GI and recommended upper endoscopy but reportedly pt preferred to followup outpatient. Notes ongoing diarrhea, denies fever, melena, syncope or SOB. Abnormal Vaginal Bleeding: No Past Medical History Reviewed: Historical Data, Nursing Documentation, Vital Signs Vital Signs: Last Vital Signs Temp 97.8 F 06/22/18 07:31 Pulse 64 06/22/18 07:31 Resp 17 06/22/18 07:31 BP 146/86 06/22/18 07:31 Pulse Ox 99 06/22/18 07:31 - Medical History PMH: Arthritis, Back Problems, Diabetes (type II), HTN, Hypercholesterolemia, Hyperlipidemia, Osteoporosis, Chronic Pain (back) Denies: Hepatitis, HIV, Chronic Kidney Disease, Seizures, Sexually Transmitted Disease - Surgical History Surgical History: (x3) - Family History Family History: States: Unknown Family Hx - Living Arrangements Living Arrangements: With Family - Home Medications Home Medications: Ambulatory Orders Medication Instructions Recorded Simvastatin 20 mg PO HS 10/17/14 Valsartan/Hydrochlorothiazide 1 tab PO DAILY 10/17/14 [Valsartan-Hctz 160-12.5 mg Tab] metFORMIN [glucOPHAGE] 500 mg PO BID 02/28/16 Cephalexin [Keflex] 500 mg PO TID #15 cap 06/14/18 Cholecalciferol (Vitamin D3) 2,000 unit PO DAILY 06/19/18 [Vitamin D3] Meclizine [Meclizine*] 25 mg PO Q8 PRN 06/19/18 - Allergies Allergies/Adverse Reactions: Allergies Allergy/AdvReac Type Severity Reaction Status Date / Time No Known Allergies Allergy Verified 06/19/18 12:54 Review of Systems Constitutional: Negative for: Fever Cardiovascular: Negative for: Chest Pain Gastrointestinal: Positive for: Vomiting, Diarrhea Genitourinary Female: Negative for: Dysuria Physical Exam - Reviewed Nursing Documentation Reviewed: Yes Vital Signs Reviewed: Yes - Physical Exam Appears: Positive for: Well, Non-toxic, No Acute Distress Head Exam: Positive for: ATRAUMATIC, NORMAL INSPECTION, NORMOCEPHALIC Skin: Positive for: Normal Color, Warm, DRY Eye Exam: Positive for: EOMI, Normal appearance, PERRL ENT: Positive for: Normal ENT Inspection Neck: Positive for: Normal, Painless ROM Cardiovascular/Chest: Positive for: Regular Rate, Rhythm Respiratory: Positive for: CNT, Normal Breath Sounds Pulses-Radial (L): 3+/4+ Pulses-Radial (R): 3+/4+ Gastrointestinal/Abdominal: Positive for: Soft, Tenderness (epigastric), Other (obese). Negative for: Distended, Guarding Back: Positive for: Normal Inspection Extremity: Positive for: Normal ROM Neurologic/Psych: Positive for: Alert, Oriented - Laboratory Results Result Diagrams: 06/22/18 08:45 06/22/18 08:45 - ECG O2 Sat by Pulse Oximetry: 99 Medical Decision Making Medical Decision Making: workup for recurrent abd pain, labs/ CT imaging labs reviewed and unremarkable Surgical residents evaluated patient in ED CT pending 3pm endorsed Dr Jackson Disposition - Clinical Impression Clinical Impression: Abdominal pain - Patient ED Disposition Is Patient to be Admitted: Transfer of Care - Disposition Disposition: Transfer of Care Disposition Time: 15:07 Forms: [employer] (Estonian) Patient Signed Over To: Anne Jackson Handoff Comments: CT abd pelv
[2018-06-22] MEDS ORDERED: Iohexol 240 (50 ml) PO ONE (09:30)
[2018-06-22 09:37] LABS: ALB/GLOB RATIO 1.4 (1.0-2.1); ALBUMIN 4.3 g/dL (3.5-5.0); ALT/SGPT 31 U/L (9-52); AST/SGOT 27 U/L (14-36); BLOOD UREA NITROGEN 12 mg/dl (7-17); CALCIUM 9.2 mg/dL (8.4-10.2); GFR NON-AFRICAN AMERICAN > 60; LIPASE 42 U/L (23-300)
[2018-06-22 11:27] LABS: SQUAMOUS EPITHIAL 1 /hpf (0-5); URINE BILIRUBIN NEGATIVE (NEGATIVE); URINE BLOOD NEGATIVE (NEGATIVE); URINE CLARITY CLEAR (Clear); URINE COLOR STRAW (YELLOW); URINE GLUCOSE (UA) NEG (NEGATIVE); URINE LEUKOCYTE ESTERASE NEG Leu/uL (Negative); URINE PROTEIN NEGATIVE (NEGATIVE); URINE UROBILINOGEN 0.2-1.0 mg/dL (0.2-1.0)
[2018-06-22] MEDS ORDERED: Iohexol 240 (50 ml) ONE (12:34)
--- NOTE | 2018-06-22 16:03 | CT ---
Date of service: 06/22/2018 PROCEDURE: CT Abdomen and Pelvis. HISTORY: Persistent upper abdominal pain COMPARISON: Comparison made with prior CT scan of the abdomen and pelvis 06/19/2018. TECHNIQUE: Contiguous helical/transaxial sections of the abdomen pelvis performed following administration of oral contrast material. IV contrast not injected per request and the study is therefore somewhat limited. Radiation dose: Total exam DLP = 963.76 mGy-cm. This CT exam was performed using one or more of the following dose reduction techniques: Automated exposure control, adjustment of the mA and/or kV according to patient size, and/or use of iterative reconstruction technique. FINDINGS: LOWER THORAX: Heart appears enlarged.. Trace pericardial effusion or some minimal pericardial thickening.. There is a small hiatal hernia all oral contrast may air within the distal esophagus consistent with reflux. Minor scarring changes seen in the middle lobe and lingular regions. No evidence of effusion or basilar pneumothorax. LIVER: Liver is mildly enlarged measuring nearly 20 cm in CC dimension. No obvious hepatic masses or collections seen on this noncontrast study. Mild diffuse fatty hepatic infiltration. GALLBLADDER AND BILE DUCTS: Cholelithiasis. PANCREAS: Unremarkable. No gross lesion or ductal dilatation. SPLEEN: Unremarkable. ADRENALS: Unremarkable. No mass. KIDNEYS AND URETERS: Kidneys demonstrate relatively symmetric size.. There is minimal dilatation of the right ribs renal collecting system/pelvis and proximal ureter with an apparent 4.5 mm calculus in the mid to lower right ureter. Correlation with urinalysis recommended. VASCULATURE: Unremarkable. No aortic aneurysm. Minimal aortic atherosclerotic calcification or mural plaque present. BOWEL: Stomach is incompletely distended which in part accounts for thick-walled appearance. Rule out gastritis. Visualized loops of small bowel exhibit normal contour and caliber. No evidence of acute mechanical small bowel obstruction with oral contrast material seen in the colon to the level of the rectum. Scattered colonic diverticula present however no definitive radiographic evidence of acute diverticulitis. APPENDIX: Appendix appears normal. PERITONEUM: Unremarkable. No free fluid. No free air. Redemonstrated are tiny ventral wall hernia containing mesenteric fat. LYMPH NODES: Unremarkable. No enlarged lymph nodes. BLADDER: Urinary bladder is incompletely distended which in part accounts for thick-walled appearance. Recommend correlation with urinalysis to exclude cystitis REPRODUCTIVE: In situ IUD within the endometrial canal. Note that the endometrium appears thickened on the prior study which was obvious due to the presence of a as contrast enhancement. These changes are less well seen on the current exam due to the lack of circulating intravenous contrast material however follow-up pelvic ultrasound is recommended to exclude the possibility of endometrial lesion including hyperplasia polyps or endometrial carcinoma. BONES: No acute fractures. Multilevel degenerative spondylosis of the lower thoracic and lumbar spine. OTHER FINDINGS: None. IMPRESSION: There is an approximately 4.5 mm calculus parent within the mid to to lower right ureter with mild right-sided hydronephrosis. In situ IUD within the endometrial canal. The endometrium appears thickened on the prior exam of which is less well seen on this study due to the lack circulating intravenous contrast material. Recommend follow-up pelvic ultrasound to assess for endometrial pathology including hyperplasia polyps or endometrial carcinoma. Urinary bladder is incompletely distended which in part accounts for thick-walled appearance. Recommend correlation with urinalysis to exclude cystitis Mild hepatomegaly. Cholelithiasis. Scattered colonic diverticula without radiographic evidence of acute diverticulitis. Small hiatal hernia with evidence of reflux.
--- NOTE | 2018-06-22 16:36 | ED PDOC ---
- Laboratory Results Result Diagrams: 06/23/18 05:30 06/23/18 05:30 - ECG O2 Sat by Pulse Oximetry: 98 - Progress ED Course And Treament: 3p Rec'd endorsement from Dr Simmons. Pt with abdominal pain, h/o recent hospitalization for this but pain persists s/p discharge. Pending CT result. Accession No. : [id number] Patient Name / ID : YOLANDE ROBIN I / [id number] Exam Date : 06/22/2018 14:13:35 ( Approved ) Study Comment : Sex / Age : F / 77Y Creator : Erik Butler MD Dictator : Erik Butler MD Weeder : Retail Operations Manager : Erik Butler MD Approver2 : Report Date : 06/22/2018 15:59:30 My Comment : Date of service: 06/22/2018 PROCEDURE: CT Abdomen and Pelvis. HISTORY: Persistent upper abdominal pain COMPARISON: Comparison made with prior CT scan of the abdomen and pelvis 06/19/2018. TECHNIQUE: Contiguous helical/transaxial sections of the abdomen pelvis performed following administration of oral contrast material. IV contrast not injected per request and the study is therefore somewhat limited. Radiation dose: Total exam DLP = 963.76 mGy-cm. This CT exam was performed using one or more of the following dose reduction techniques: Automated exposure control, adjustment of the mA and/or kV according to patient size, and/or use of iterative reconstruction technique. FINDINGS: LOWER THORAX: Heart appears enlarged.. Trace pericardial effusion or some minimal pericardial thickening.. There is a small hiatal hernia all oral contrast may air within the distal esophagus consistent with reflux. Minor scarring changes seen in the middle lobe and lingular regions. No evidence of effusion or basilar pneumothorax. LIVER: Liver is mildly enlarged measuring nearly 20 cm in CC dimension. No obvious hepatic masses or collections seen on this noncontrast study. Mild diffuse fatty hepatic infiltration. GALLBLADDER AND BILE DUCTS: Cholelithiasis. PANCREAS: Unremarkable. No gross lesion or ductal dilatation. SPLEEN: Unremarkable. ADRENALS: Unremarkable. No mass. KIDNEYS AND URETERS: Kidneys demonstrate relatively symmetric size.. There is minimal dilatation of the right ribs renal collecting system/pelvis and proximal ureter with an apparent 4.5 mm calculus in the mid to lower right ureter. Correlation with urinalysis recommended. VASCULATURE: Unremarkable. No aortic aneurysm. Minimal aortic atherosclerotic calcification or mural plaque present. BOWEL: Stomach is incompletely distended which in part accounts for thick-walled appearance. Rule out gastritis. Visualized loops of small bowel exhibit normal contour and caliber. No evidence of acute mechanical small bowel obstruction with oral contrast material seen in the colon to the level of the rectum. Scattered colonic diverticula present however no definitive radiographic evidence of acute diverticulitis. APPENDIX: Appendix appears normal. PERITONEUM: Unremarkable. No free fluid. No free air. Redemonstrated are tiny ventral wall hernia containing mesenteric fat. LYMPH NODES: Unremarkable. No enlarged lymph nodes. BLADDER: Urinary bladder is incompletely distended which in part accounts for thick- walled appearance. Recommend correlation with urinalysis to exclude cystitis REPRODUCTIVE: In situ IUD within the endometrial canal. Note that the endometrium appears thickened on the prior study which was obvious due to the presence of a as contrast enhancement. These changes are less well seen on the current exam due to the lack of circulating intravenous contrast material however follow-up pelvic ultrasound is recommended to exclude the possibility of endometrial lesio n including hyperplasia polyps or endometrial carcinoma. BONES: No acute fractures. Multilevel degenerative spondylosis of the lower thoracic and lumbar spine. OTHER FINDINGS: None. IMPRESSION: There is an approximately 4.5 mm calculus parent within the mid to to lower right ureter with mild right-sided hydronephrosis. In situ IUD within the endometrial canal. The endometrium appears thickened on the prior exam of which is less well seen on this study due to the lack circulating intravenous contrast material. Recommend follow-up pelvic ultrasound to assess for endometrial pathology including hyperplasia polyps or endometrial carcinoma. Urinary bladder is incompletely distended which in part accounts for thick- walled appearance. Recommend correlation with urinalysis to exclude cystitis Mild hepatomegaly. Cholelithiasis. Scattered colonic diverticula without radiographic evidence of acute diverticulitis. Small hiatal hernia with evidence of reflux. On reevaluation pt continues to have abdominal pain DW pt findings. Denies any flank pain. Concern for continued severe gastritis or PUD Pt hospitalized for further management. CAMMY Phillips Hospitalist (for [facility]) and Surgery resident and Dr Parks Urology. Condition: Unchanged Disposition - Clinical Impression Clinical Impression: Abdominal pain - POA Present On Arrival: None - Disposition Disposition: Hospitalized as Observation Patient Disposition Time: 16:00 Condition: FAIR
--- NOTE | 2018-06-22 17:41 | CP.PCM.HP ---
<Dawood Carrasco - Last Filed: 06/22/18 22:16> History of Present Illness - History of Present Illness History of Present Illness: 77 y/o F with a PMHx of of DM2, HTN and HLD presented to ED complaining of epigastric pain that began 2 weeks ago. Pain is described as sever, epigastric area, non-radiating, aggravated this morning after food intake and associated with belching. Pt was discharged 3 days ago due to similar complaint. Pt also reports having diarrhea for the past 3 days, is watery, non-bloody and non- mucous. Pt has NOT tried any medication,. Pt denies fever, chills, sweats, nausea, vomiting, acid reflux, chest pain, RLQ abd pain, SOB, weight changes or rash. Pt was given Sulcrafate in the ED which alleviated pain. -Last admission under Gen Surgery service: Initial CT scan of the abdomen/pelvis showed possible acute early appendicitis for which patient was admitted. GI evaluated patient, offered endoscopy; however, pt declined EGD. Pt was discharged home after improvement of pain and -Abdominal US done 06/11 which showed cholelithiasis, no cholecystitis PMD: [facility], last appt 03/13/[address] Pond. PMH: HTN, DM, HLD, PSH: 3 c-sections FH: Noncontributory SH: Denies tobacco, alcohol, drugs ALL: NKDA At ED: --CT Abdomen showed cholelithiasis and small hiatal hernia but NO appendicitis. --Pain improved with Sucralfate. Present on Admission - Present on Admission Any Indicators Present on Admission: No Review of Systems - Constitutional Constitutional: absent: Chills, Fever, Weight Loss - EENT Eyes: absent: Change in Vision Nose/Mouth/Throat: absent: Sore Throat, Neck Mass - Cardiovascular Cardiovascular: absent: Chest Pain, Chest Pain at Rest, Claudication, Dyspnea - Respiratory Respiratory: absent: Cough, Dyspnea, Hemoptysis, Dyspnea on Exertion - Gastrointestinal Gastrointestinal: Abdominal Pain, Belching. absent: Nausea, Odynophagia, Temesmus, Vomiting - Genitourinary Genitourinary: absent: Dysuria, Flank Pain, Hematuria Past Patient History - Infectious Disease Hx of Infectious Diseases: None - Past Medical History & Family History Past Medical History?: Yes - Past Social History Smoking Status: Former Smoker - CARDIAC Hx Hypercholesterolemia: Yes Hx Hypertension: Yes - PULMONARY Hx Tuberculosis: No - NEUROLOGICAL Hx Seizures: No - HEENT Hx HEENT Problems: No - RENAL Hx Chronic Kidney Disease: No - ENDOCRINE/METABOLIC Hx Endocrine Disorders: Yes Hx Diabetes Mellitus Type 2: Yes - HEMATOLOGICAL/ONCOLOGICAL Hx Human Immunodeficiency Virus (HIV): No - INTEGUMENTARY Hx Dermatological Problems: No - MUSCULOSKELETAL/RHEUMATOLOGICAL Hx Arthritis: Yes Hx Osteoporosis: Yes - GASTROINTESTINAL Hx Gastrointestinal Disorders: No - GENITOURINARY/GYNECOLOGICAL Hx Sexually Transmitted Disorders: No - PSYCHIATRIC Hx Emotional Abuse: No Hx Physical Abuse: No Hx Substance Use: No - SURGICAL HISTORY Hx Surgeries: Yes Hx Section: Yes (x3) - ANESTHESIA Hx Malignant Hyperthermia: No Meds Allergies/Adverse Reactions: Allergies Allergy/AdvReac Type Severity Reaction Status Date / Time No Known Allergies Allergy Verified 06/19/18 12:54 Physical Exam - Constitutional Appears: No Acute Distress (but in pain) - Head Exam Head Exam: ATRAUMATIC, NORMAL INSPECTION - Eye Exam Eye Exam: EOMI, Normal appearance - ENT Exam ENT Exam: Mucous Membranes Moist - Neck Exam Neck exam: Positive for: Full Rom, Normal Inspection. Negative for: Lymphadenopathy, Thyromegaly - Respiratory Exam Respiratory Exam: NORMAL BREATHING PATTERN. absent: Rales, Rhonchi, Wheezes - Cardiovascular Exam Cardiovascular Exam: REGULAR RHYTHM, +S1, +S2 - GI/Abdominal Exam GI & Abdominal Exam: Distended (obese), Soft, Tenderness (on epigastric area). absent: Guarding, Organomegaly, Pulsatile Mass, Rigid - Extremities Exam Extremities exam: Positive for: full ROM, normal inspection. Negative for: calf tenderness - Back Exam Back exam: absent: CVA tenderness (L), CVA tenderness (R) - Neurological Exam Neurological exam: Alert, Oriented x3 Results - Vital Signs Recent Vital Signs: Last Vital Signs Temp 97.6 F 06/22/18 16:26 Pulse 69 06/22/18 16:26 Resp 18 06/22/18 16:26 BP 136/76 06/22/18 16:26 Pulse Ox 98 06/22/18 16:36 - Labs Result Diagrams: 06/22/18 08:45 06/22/18 08:45 Labs: Laboratory Results - last 24 hr 06/22/18 06/22/18 06/22/18 08:45 08:45 11:09 WBC 11.7 H RBC 4.61 Hgb 13.1 Hct 40.9 MCV 88.7 D MCH 28.4 MCHC 32.0 L RDW 14.0 Plt Count 191 MPV 10.5 Neut % (Auto) 71.8 Lymph % (Auto) 21.0 [place] % (Auto) 5.9 Eos % (Auto) 0.8 Baso % (Auto) 0.5 Neut # (Auto) 8.4 H Lymph # (Auto) 2.5 [place] # (Auto) 0.7 Eos # (Auto) 0.1 Baso # (Auto) 0.1 Sodium 138 Potassium 3.7 Chloride 99 Carbon Dioxide 28 Anion Gap 15 BUN 12 Creatinine 0.7 Est GFR ( Amer) > 60 Est GFR (Non-Af Amer) > 60 POC Glucose (mg/dL) Random Glucose 141 H Calcium 9.2 Magnesium 2.0 Total Bilirubin 1.0 AST 27 ALT 31 Alkaline Phosphatase 46 Troponin I < 0.0120 Total Protein 7.4 Albumin 4.3 Globulin 3.1 Albumin/Globulin Ratio 1.4 Lipase 42 Urine Color Straw Urine Clarity Clear Urine pH 7.0 Ur Specific [place] 1.010 Urine Protein Negative Urine Glucose (UA) Neg Urine Ketones 20 Urine Blood Negative Urine Nitrate Negative Urine Bilirubin Negative Urine Urobilinogen 0.2-1.0 Ur Leukocyte Esterase Neg Urine RBC (Auto) < 1 Urine Microscopic WBC < 1 Ur Squamous Epith Cells 1 06/22/18 17:00 WBC RBC Hgb Hct MCV MCH MCHC RDW Plt Count MPV Neut % (Auto) Lymph % (Auto) [place] % (Auto) Eos % (Auto) Baso % (Auto) Neut # (Auto) Lymph # (Auto) [place] # (Auto) Eos # (Auto) Baso # (Auto) Sodium Potassium Chloride Carbon Dioxide Anion Gap BUN Creatinine Est GFR ( Amer) Est GFR (Non-Af Amer) POC Glucose (mg/dL) 119 H Random Glucose Calcium Magnesium Total Bilirubin AST ALT Alkaline Phosphatase Troponin I Total Protein Albumin Globulin Albumin/Globulin Ratio Lipase Urine Color Urine Clarity Urine pH Ur Specific [place] Urine Protein Urine Glucose (UA) Urine Ketones Urine Blood Urine Nitrate Urine Bilirubin Urine Urobilinogen Ur Leukocyte Esterase Urine RBC (Auto) Urine Microscopic WBC Ur Squamous Epith Cells Assessment & Plan - Assessment and Plan (Free Text) Assessment: 77 y/o f with a PMHx of DM2, HTN and HLD is admitted for evaluation and management of persistent and severe epigastric abdominal pain. --CT Abdomen showed cholelithiasis and small hiatal hernia but NO appendicitis. PLAN: >Abdominal pain, epigastric --General Surgery consult, Dr Pool. F/U recommendations --Gastroenterology consult, Dr Falcon. F/U recommendations. --Morphine for analgesia, Pantoprazole and Zofran, PRN orders. --Stool H. Pylori. --NPO after midnight. >HTN --Monitor vitals --Slight elevated THANIA may be due to pain --Resumed home medications. >DM2 --Controlled --HbA1c: 6.8 (06/11/18) --Hold: Metformin 500mg po bid --Placed on Medium dose insulin sliding scale --Monitor Accuchecks, ACHS >Hyperlipidemia --Chol 128; LDL 41; HDL 51; Trig 196. --Hold: Atorvastatin 40mg daily, may damage liver. >Prophylaxis --DVT: SCDs, Considering: Lovenox 40mg sc daily if NO surgery or after surgical procedure. - GI: Protonix 40mg po daily Case discussed with Dr Alan Galan PGY-2. <Molina Phillips - Last Filed: 06/23/18 09:22> Results - Vital Signs Recent Vital Signs: Last Vital Signs Temp 97.6 F 06/23/18 07:57 Pulse 62 06/23/18 07:57 Resp 19 06/23/18 07:57 BP 113/74 06/23/18 07:57 Pulse Ox 97 06/23/18 07:57 - Labs Result Diagrams: 06/23/18 05:30 06/23/18 05:30 Labs: Laboratory Results - last 24 hr 06/22/18 06/22/18 06/22/18 08:45 11:09 17:00 WBC RBC Hgb Hct MCV MCH MCHC RDW Plt Count MPV Neut % (Auto) Lymph % (Auto) [place] % (Auto) Eos % (Auto) Baso % (Auto) Neut # (Auto) Lymph # (Auto) [place] # (Auto) Eos # (Auto) Baso # (Auto) Sodium 138 Potassium 3.7 Chloride 99 Carbon Dioxide 28 Anion Gap 15 BUN 12 Creatinine 0.7 Est GFR ( Amer) > 60 Est GFR (Non-Af Amer) > 60 POC Glucose (mg/dL) 119 H Random Glucose 141 H Calcium 9.2 Magnesium 2.0 Total Bilirubin 1.0 AST 27 ALT 31 Alkaline Phosphatase 46 Troponin I < 0.0120 Total Protein 7.4 Albumin 4.3 Globulin 3.1 Albumin/Globulin Ratio 1.4 Lipase 42 Urine Color Straw Urine Clarity Clear Urine pH 7.0 Ur Specific [place] 1.010 Urine Protein Negative Urine Glucose (UA) Neg Urine Ketones 20 Urine Blood Negative Urine Nitrate Negative Urine Bilirubin Negative Urine Urobilinogen 0.2-1.0 Ur Leukocyte Esterase Neg Urine RBC (Auto) < 1 Urine Microscopic WBC < 1 Ur Squamous Epith Cells 1 06/22/18 06/22/18 06/23/18 18:34 21:41 05:30 WBC 9.3 RBC 4.30 Hgb 12.2 Hct 37.3 MCV 86.7 D MCH 28.3 MCHC 32.6 L RDW 13.9 Plt Count 168 MPV 10.5 Neut % (Auto) 71.5 Lymph % (Auto) 19.3 L [place] % (Auto) 7.1 Eos % (Auto) 1.6 Baso % (Auto) 0.5 Neut # (Auto) 6.6 Lymph # (Auto) 1.8 [place] # (Auto) 0.7 Eos # (Auto) 0.1 Baso # (Auto) 0.0 Sodium Potassium Chloride Carbon Dioxide Anion Gap BUN Creatinine Est GFR ( Amer) Est GFR (Non-Af Amer) POC Glucose (mg/dL) 127 H 110 Random Glucose Calcium Magnesium Total Bilirubin AST ALT Alkaline Phosphatase Troponin I Total Protein Albumin Globulin Albumin/Globulin Ratio Lipase Urine Color Urine Clarity Urine pH Ur Specific [place] Urine Protein Urine Glucose (UA) Urine Ketones Urine Blood Urine Nitrate Urine Bilirubin Urine Urobilinogen Ur Leukocyte Esterase Urine RBC (Auto) Urine Microscopic WBC Ur Squamous Epith Cells 06/23/18 06/23/18 05:30 05:56 WBC RBC Hgb Hct MCV MCH MCHC RDW Plt Count MPV Neut % (Auto) Lymph % (Auto) [place] % (Auto) Eos % (Auto) Baso % (Auto) Neut # (Auto) Lymph # (Auto) [place] # (Auto) Eos # (Auto) Baso # (Auto) Sodium 138 Potassium 3.8 Chloride 101 Carbon Dioxide 30 Anion Gap 11 BUN 8 Creatinine 0.7 Est GFR ( Amer) > 60 Est GFR (Non-Af Amer) > 60 POC Glucose (mg/dL) 123 H Random Glucose 119 H Calcium 8.7 Magnesium Total Bilirubin AST ALT Alkaline Phosphatase Troponin I Total Protein Albumin Globulin Albumin/Globulin Ratio Lipase Urine Color Urine Clarity Urine pH Ur Specific [place] Urine Protein Urine Glucose (UA) Urine Ketones Urine Blood Urine Nitrate Urine Bilirubin Urine Urobilinogen Ur Leukocyte Esterase Urine RBC (Auto) Urine Microscopic WBC Ur Squamous Epith Cells Attending/Attestation - Attestation I have personally seen and examined this patient.: Yes I have fully participated in the care of the patient.: Yes I have reviewed all pertinent clinical information: Yes Notes (Text): 06/23/18 09:21 Patient seen and examined with resident. Case discussed and agreed with assessment and plan of management.
[2018-06-22] MEDS: Sodium Chloride 0.9% 1,000 ML IV SCH (17:51)
--- NOTE | 2018-06-22 18:09 | CP.PCM.CON ---
History of Present Illness - History of Present Illness History of Present Illness: General Surgery Consult Note for Dr. Mcgovern Consult: Abdominal pain CC: Abdominal pain HPI: 77 year old female, past medical history significant for HTN, DM, HLD, presents to the emergency department with nonradiating, intermittent, epigastric pain. Patient has been having similar symptoms for the past 2 weeks and was recently discharged and scheduled to follow up outpatient with GI for an EGD. Last night after dinner (chicken, veggies) patient started having epigastric pain and multiple episodes of nonbloody diarrhea. She did not take any medicine for symptomatic relief. The pain medication given in the ED alleviated her symptoms. Patient is having bowel movements and passing flatus. States she has had decreased apetite recently, but no unintentional weight loss. She denies any fever, chills, nausea, vomiting, shortness of breath, chest pain, or urinary symptoms. PMH: See above PSH: 3 c-sections FH: Noncontributory SH: Denies tobacco, alcohol, drugs ALL: NKDA Meds: See MAR Review of Systems - Constitutional Constitutional: absent: Chills, Fever, Weight Loss - EENT Eyes: absent: Blurred Vision, Change in Vision Nose/Mouth/Throat: absent: Nasal Congestion, Nasal Discharge - Cardiovascular Cardiovascular: absent: Chest Pain, Dyspnea - Respiratory Respiratory: absent: Cough, Dyspnea - Gastrointestinal Gastrointestinal: Abdominal Pain, Belching, Bloating, Diarrhea. absent: Nausea, Vomiting - Genitourinary Genitourinary: absent: Difficulty Urinating, Dysuria - Musculoskeletal Musculoskeletal: absent: Back Pain, Neck Pain - Integumentary Integumentary: absent: Bleeding Lesions, Changing Lesions - Neurological Neurological: absent: Confusion, Dizziness - Psychiatric Psychiatric: absent: Anxiety, Depression Past Patient History - Infectious Disease Hx of Infectious Diseases: None - Past Medical History & Family History Past Medical History?: Yes - Past Social History Smoking Status: Former Smoker - CARDIAC Hx Hypercholesterolemia: Yes Hx Hypertension: Yes - PULMONARY Hx Tuberculosis: No - NEUROLOGICAL Hx Seizures: No - HEENT Hx HEENT Problems: No - RENAL Hx Chronic Kidney Disease: No - ENDOCRINE/METABOLIC Hx Endocrine Disorders: Yes Hx Diabetes Mellitus Type 2: Yes - HEMATOLOGICAL/ONCOLOGICAL Hx Human Immunodeficiency Virus (HIV): No - INTEGUMENTARY Hx Dermatological Problems: No - MUSCULOSKELETAL/RHEUMATOLOGICAL Hx Arthritis: Yes Hx Osteoporosis: Yes - GASTROINTESTINAL Hx Gastrointestinal Disorders: No - GENITOURINARY/GYNECOLOGICAL Hx Sexually Transmitted Disorders: No - PSYCHIATRIC Hx Emotional Abuse: No Hx Physical Abuse: No Hx Substance Use: No - SURGICAL HISTORY Hx Surgeries: Yes Hx Section: Yes (x3) - ANESTHESIA Hx Malignant Hyperthermia: No Meds Allergies/Adverse Reactions: Allergies Allergy/AdvReac Type Severity Reaction Status Date / Time No Known Allergies Allergy Verified 06/19/18 12:54 - Medications Medications: Current Medications Hydrochlorothiazide (Microzide) 12.5 mg PO DAILY [facility] Sodium Chloride (Sodium Chloride 0.9%) 1,000 mls @ 100 mls/hr IV .Q10H ADA Last Admin: 06/22/18 17:51 Dose: 100 mls/hr Insulin Human Lispro (Humalog) 0 units SC ACHS ADA; Protocol Morphine Sulfate (Morphine) 2 mg IVP Q4 PRN PRN Reason: Pain, moderate (4-7) Pantoprazole Sodium (Protonix Ec Tab) 40 mg PO DAILY [facility] Valsartan (Diovan) 160 mg PO DAILY [facility] Physical Exam - Constitutional Appears: Non-toxic, No Acute Distress - Head Exam Head Exam: ATRAUMATIC, NORMAL INSPECTION, NORMOCEPHALIC - Eye Exam Eye Exam: EOMI - ENT Exam ENT Exam: Mucous Membranes Dry - Respiratory Exam Respiratory Exam: NORMAL BREATHING PATTERN. absent: Respiratory Distress - Cardiovascular Exam Cardiovascular Exam: REGULAR RHYTHM - GI/Abdominal Exam GI & Abdominal Exam: Normal Bowel Sounds, Soft. absent: Distended, Guarding, Rebound, Tenderness - Neurological Exam Neurological exam: Alert, Oriented x3 - Psychiatric Exam Psychiatric exam: Normal Affect, Normal Mood - Skin Skin Exam: Dry, Intact, Normal Color, Warm Results - Vital Signs Recent Vital Signs: Last Vital Signs Temp 97.6 F 06/22/18 16:26 Pulse 69 06/22/18 16:26 Resp 18 06/22/18 16:26 BP 136/76 06/22/18 16:26 Pulse Ox 98 06/22/18 16:36 - Labs Result Diagrams: 06/22/18 08:45 06/22/18 08:45 Labs: Laboratory Results - last 24 hr 06/22/18 06/22/18 06/22/18 08:45 08:45 11:09 WBC 11.7 H RBC 4.61 Hgb 13.1 Hct 40.9 MCV 88.7 D MCH 28.4 MCHC 32.0 L RDW 14.0 Plt Count 191 MPV 10.5 Neut % (Auto) 71.8 Lymph % (Auto) 21.0 [place] % (Auto) 5.9 Eos % (Auto) 0.8 Baso % (Auto) 0.5 Neut # (Auto) 8.4 H Lymph # (Auto) 2.5 [place] # (Auto) 0.7 Eos # (Auto) 0.1 Baso # (Auto) 0.1 Sodium 138 Potassium 3.7 Chloride 99 Carbon Dioxide 28 Anion Gap 15 BUN 12 Creatinine 0.7 Est GFR ( Amer) > 60 Est GFR (Non-Af Amer) > 60 POC Glucose (mg/dL) Random Glucose 141 H Calcium 9.2 Magnesium 2.0 Total Bilirubin 1.0 AST 27 ALT 31 Alkaline Phosphatase 46 Troponin I < 0.0120 Total Protein 7.4 Albumin 4.3 Globulin 3.1 Albumin/Globulin Ratio 1.4 Lipase 42 Urine Color Straw Urine Clarity Clear Urine pH 7.0 Ur Specific [place] 1.010 Urine Protein Negative Urine Glucose (UA) Neg Urine Ketones 20 Urine Blood Negative Urine Nitrate Negative Urine Bilirubin Negative Urine Urobilinogen 0.2-1.0 Ur Leukocyte Esterase Neg Urine RBC (Auto) < 1 Urine Microscopic WBC < 1 Ur Squamous Epith Cells 1 06/22/18 17:00 WBC RBC Hgb Hct MCV MCH MCHC RDW Plt Count MPV Neut % (Auto) Lymph % (Auto) [place] % (Auto) Eos % (Auto) Baso % (Auto) Neut # (Auto) Lymph # (Auto) [place] # (Auto) Eos # (Auto) Baso # (Auto) Sodium Potassium Chloride Carbon Dioxide Anion Gap BUN Creatinine Est GFR ( Amer) Est GFR (Non-Af Amer) POC Glucose (mg/dL) 119 H Random Glucose Calcium Magnesium Total Bilirubin AST ALT Alkaline Phosphatase Troponin I Total Protein Albumin Globulin Albumin/Globulin Ratio Lipase Urine Color Urine Clarity Urine pH Ur Specific [place] Urine Protein Urine Glucose (UA) Urine Ketones Urine Blood Urine Nitrate Urine Bilirubin Urine Urobilinogen Ur Leukocyte Esterase Urine RBC (Auto) Urine Microscopic WBC Ur Squamous Epith Cells Assessment & Plan - Assessment and Plan (Free Text) Assessment: 77F w/ abdominal pain CT shows cholelithiasis and small hiatal hernia Plan: NPO IVF Antiemetics and analgesics GI PPX F/u FOBT, H. pylori, and stool culture F/u GI consult - may need EGD inpatient to determine etiology of abdominal pain Abdominal US done 06/11 which showed cholelithiasis, no cholecystitis If EGD unremarkable, patient may need further work up including HIDA Monitor vitals Further medical management per primary team Further recommendations per Dr. Froilan Cameron PGY1
[2018-06-22] MEDS: Insulin Lispro (humaLOG) 100 Units/ml Inj SC SCH (22:09)
--- NOTE | 2018-06-23 00:01 | CP.PCM.CON ---
History of Present Illness - History of Present Illness History of Present Illness: 77 yo female recently discharged from [facility] readmitted for abdominal pain and diarrhea. Patient has a 2.2 cm gallstone but no evidence of cholecystitis. Has been having loose bowel movements. Abdomnal pain is intermittent and in epigast rum Review of Systems - Constitutional Constitutional: absent: Chills - EENT Eyes: absent: Blurred Vision Nose/Mouth/Throat: absent: Epistaxis - Breasts Breasts: absent: Pain - Cardiovascular Cardiovascular: absent: Chest Pain - Respiratory Respiratory: absent: Cough - Gastrointestinal Gastrointestinal: As Per HPI, Abdominal Pain, Diarrhea Past Patient History - Infectious Disease Hx of Infectious Diseases: None - Past Medical History & Family History Past Medical History?: Yes - Past Social History Smoking Status: Former Smoker - CARDIAC Hx Hypercholesterolemia: Yes Hx Hypertension: Yes - PULMONARY Hx Tuberculosis: No - NEUROLOGICAL Hx Seizures: No - HEENT Hx HEENT Problems: No - RENAL Hx Chronic Kidney Disease: No - ENDOCRINE/METABOLIC Hx Endocrine Disorders: Yes Hx Diabetes Mellitus Type 2: Yes - HEMATOLOGICAL/ONCOLOGICAL Hx Human Immunodeficiency Virus (HIV): No - INTEGUMENTARY Hx Dermatological Problems: No - MUSCULOSKELETAL/RHEUMATOLOGICAL Hx Arthritis: Yes Hx Osteoporosis: Yes - GASTROINTESTINAL Hx Gastrointestinal Disorders: No - GENITOURINARY/GYNECOLOGICAL Hx Sexually Transmitted Disorders: No - PSYCHIATRIC Hx Emotional Abuse: No Hx Physical Abuse: No Hx Substance Use: No - SURGICAL HISTORY Hx Surgeries: Yes Hx Section: Yes (x3) - ANESTHESIA Hx Malignant Hyperthermia: No Meds Allergies/Adverse Reactions: Allergies Allergy/AdvReac Type Severity Reaction Status Date / Time No Known Allergies Allergy Verified 06/19/18 12:54 - Medications Medications: Current Medications Hydrochlorothiazide (Microzide) 12.5 mg PO DAILY [facility] Sodium Chloride (Sodium Chloride 0.9%) 1,000 mls @ 100 mls/hr IV .Q10H [facility] Last Admin: 06/22/18 17:51 Dose: 100 mls/hr Insulin Human Lispro (Humalog) 0 units SC ACHS [facility]; Protocol Last Admin: 06/22/18 22:09 Dose: Not Given Losartan Potassium (Cozaar) 100 mg PO DAILY [facility] Morphine Sulfate (Morphine) 2 mg IVP Q4 PRN PRN Reason: Pain, moderate (4-7) Ondansetron HCl (Zofran Inj) 4 mg IVP Q4 PRN PRN Reason: Nausea/Vomiting Pantoprazole Sodium (Protonix Ec Tab) 40 mg PO DAILY [facility] Physical Exam - Head Exam Head Exam: ATRAUMATIC - Eye Exam Eye Exam: Normal appearance - ENT Exam ENT Exam: Mucous Membranes Moist - Neck Exam Neck exam: Positive for: Normal Inspection - Respiratory Exam Respiratory Exam: Clear to Auscultation Bilateral - Cardiovascular Exam Cardiovascular Exam: REGULAR RHYTHM, +S1, +S2 - GI/Abdominal Exam GI & Abdominal Exam: Normal Bowel Sounds, Soft, Tenderness Additional comments: moderate epgastric tenderness. Results - Vital Signs Recent Vital Signs: Last Vital Signs Temp 97.7 F 06/22/18 18:36 Pulse 68 06/22/18 21:34 Resp 18 06/22/18 21:34 BP 146/82 06/22/18 21:34 Pulse Ox 99 06/22/18 21:34 - Labs Result Diagrams: 06/22/18 08:45 06/22/18 08:45 Labs: Laboratory Results - last 24 hr 06/22/18 06/22/18 06/22/18 08:45 08:45 11:09 WBC 11.7 H RBC 4.61 Hgb 13.1 Hct 40.9 MCV 88.7 D MCH 28.4 MCHC 32.0 L RDW 14.0 Plt Count 191 MPV 10.5 Neut % (Auto) 71.8 Lymph % (Auto) 21.0 [place] % (Auto) 5.9 Eos % (Auto) 0.8 Baso % (Auto) 0.5 Neut # (Auto) 8.4 H Lymph # (Auto) 2.5 [place] # (Auto) 0.7 Eos # (Auto) 0.1 Baso # (Auto) 0.1 Sodium 138 Potassium 3.7 Chloride 99 Carbon Dioxide 28 Anion Gap 15 BUN 12 Creatinine 0.7 Est GFR ( Amer) > 60 Est GFR (Non-Af Amer) > 60 POC Glucose (mg/dL) Random Glucose 141 H Calcium 9.2 Magnesium 2.0 Total Bilirubin 1.0 AST 27 ALT 31 Alkaline Phosphatase 46 Troponin I < 0.0120 Total Protein 7.4 Albumin 4.3 Globulin 3.1 Albumin/Globulin Ratio 1.4 Lipase 42 Urine Color Straw Urine Clarity Clear Urine pH 7.0 Ur Specific [place] 1.010 Urine Protein Negative Urine Glucose (UA) Neg Urine Ketones 20 Urine Blood Negative Urine Nitrate Negative Urine Bilirubin Negative Urine Urobilinogen 0.2-1.0 Ur Leukocyte Esterase Neg Urine RBC (Auto) < 1 Urine Microscopic WBC < 1 Ur Squamous Epith Cells 1 06/22/18 06/22/18 06/22/18 17:00 18:34 21:41 WBC RBC Hgb Hct MCV MCH MCHC RDW Plt Count MPV Neut % (Auto) Lymph % (Auto) [place] % (Auto) Eos % (Auto) Baso % (Auto) Neut # (Auto) Lymph # (Auto) [place] # (Auto) Eos # (Auto) Baso # (Auto) Sodium Potassium Chloride Carbon Dioxide Anion Gap BUN Creatinine Est GFR ( Amer) Est GFR (Non-Af Amer) POC Glucose (mg/dL) 119 H 127 H 110 Random Glucose Calcium Magnesium Total Bilirubin AST ALT Alkaline Phosphatase Troponin I Total Protein Albumin Globulin Albumin/Globulin Ratio Lipase Urine Color Urine Clarity Urine pH Ur Specific [place] Urine Protein Urine Glucose (UA) Urine Ketones Urine Blood Urine Nitrate Urine Bilirubin Urine Urobilinogen Ur Leukocyte Esterase Urine RBC (Auto) Urine Microscopic WBC Ur Squamous Epith Cells Assessment & Plan (1) Abdominal pain Assessment and Plan: Patient has epigastric abdominal pain and diarrhea. Stool studies pending. Will start cholestyramine and bentyl. Upper endoscopy Sunday to r/o ulcer,gastritis, or mass. Status: Acute
[2018-06-23] MEDS: Sodium Chloride 0.9% 1,000 ML IV SCH ×2 (03:40→18:59)
--- NOTE | 2018-06-23 07:30 | CP.PCM.PN ---
Subjective - Date & Time of Evaluation Date of Evaluation: 06/23/18 Time of Evaluation: 07:28 - Subjective Subjective: General Surgery Progress Note for Dr. Mcgovern 77F seen and evaluated at bedside this morning. No acute events overnight. Patient complains of mild abdominal pain and few episodes of diarrhea. Patient did not have any PO intake although liquids are at bedside. Denies f/c, n/v/d, SOB, CP, or urinary symptoms. Objective - Vital Signs/Intake and Output Vital Signs (last 24 hours): Temp Pulse Resp BP Pulse Ox 98.1 F 67 20 126/76 98 06/23/18 00:31 06/23/18 01:41 06/23/18 01:41 06/23/18 00:31 06/23/18 01:41 - Medications Medications: Current Medications Cholestyramine Resin (Questran) 4 gm PO DAILY [facility] Stop: 06/26/18 09:00 Dicyclomine HCl (Bentyl) 10 mg PO QID PRN PRN Reason: abdominal pain Last Admin: 06/23/18 04:49 Dose: 10 mg Hydrochlorothiazide (Microzide) 12.5 mg PO DAILY [facility] Sodium Chloride (Sodium Chloride 0.9%) 1,000 mls @ 100 mls/hr IV .Q10H [facility] Last Admin: 06/23/18 03:40 Dose: 100 mls/hr Insulin Human Lispro (Humalog) 0 units SC [facility]; Protocol Last Admin: 06/22/18 22:09 Dose: Not Given Losartan Potassium (Cozaar) 100 mg PO DAILY [facility] Morphine Sulfate (Morphine) 2 mg IVP Q4 PRN PRN Reason: Pain, moderate (4-7) Ondansetron HCl (Zofran Inj) 4 mg IVP Q4 PRN PRN Reason: Nausea/Vomiting Pantoprazole Sodium (Protonix Ec Tab) 40 mg PO DAILY [facility] - Labs Labs: 06/22/18 08:45 06/22/18 08:45 - Constitutional Appears: Well, Non-toxic, No Acute Distress - Head Exam Head Exam: ATRAUMATIC, NORMAL INSPECTION, NORMOCEPHALIC - Eye Exam Eye Exam: EOMI - ENT Exam ENT Exam: Mucous Membranes Moist - Respiratory Exam Respiratory Exam: NORMAL BREATHING PATTERN. absent: Respiratory Distress - Cardiovascular Exam Cardiovascular Exam: REGULAR RHYTHM - GI/Abdominal Exam GI & Abdominal Exam: Soft, Normal Bowel Sounds. absent: Distended, Guarding, Tenderness, Rebound - Neurological Exam Neurological Exam: Alert, Awake - Psychiatric Exam Psychiatric exam: Normal Affect, Normal Mood - Skin Skin Exam: Dry, Intact, Normal Color, Warm Assessment and Plan - Assessment and Plan (Free Text) Assessment: 77F w/ abdominal pain likely gastritis vs PUD Plan: Planned for EGD per GI on Sunday Will f/u EGD and pathology Continue CLD, will need to be made NPO past MN for Sunday's procedure Antiemetics and analgesics as needed GI PPX Encourage ambulation and OOTBC Further recommendations per Dr. Froilan Cameron PGY1
[2018-06-23] MEDS: Insulin Lispro (humaLOG) 100 Units/ml Inj SC SCH ×4 (07:42→21:44)
[2018-06-23 07:45] LABS: BASO % 0.5 % (0.0-2.0); EOS # 0.1 K/uL (0.0-0.7); EOS % 1.6 % (0.0-4.0); HEMOGLOBIN 12.2 g/dL (12.0-16.0); LYMPH # 1.8 K/uL (1.0-4.3); LYMPH % 19.3 % (20.0-40.0); MEAN CELL VOLUME 86.7 fl (81.0-99.0); MEAN CORPUSCULAR HEMOGLOBIN 28.3 pg (27.0-31.0); MEAN CORPUSCULAR HGB CONC 32.6 g/dL (33.0-37.0); MEAN PLATELET VOLUME 10.5 fl (7.2-11.7); MONO # 0.7 K/uL (0.0-0.8); MONO % 7.1 % (0.0-10.0); NEUT # 6.6 K/uL (1.8-7.0); NEUT % 71.5 % (50.0-75.0); RBC 4.3 Mil/uL (3.80-5.20); RED CELL DISTRIBUTION WIDTH 13.9 % (11.5-14.5); WHITE BLOOD COUNT 9.3 K/uL (4.8-10.8)
[2018-06-23 09:02] LABS: BLOOD UREA NITROGEN 8 mg/dl (7-17); CALCIUM 8.7 mg/dL (8.4-10.2); GFR NON-AFRICAN AMERICAN > 60
[2018-06-23] MEDS: Cholestyramine 4 gm/Pkt UD PO SCH (09:46)
[2018-06-23] MEDS: Sucralfate 1 gm/10 ml Oral Susp UD PO SCH ×2 (10:19→16:37)
[2018-06-23] MEDS: Pantoprazole 40 mg EC Tab PO SCH (10:20)
--- NOTE | 2018-06-23 10:30 | CP.PCM.PN ---
<Javed Dominguez - Last Filed: 06/23/18 13:56> Subjective - Date & Time of Evaluation Date of Evaluation: 06/23/18 Time of Evaluation: 09:50 - Subjective Subjective: Patient seen and evaluated at bedside in AM. Patient sitting in bed comfortably. Reports improvement in abdominal pain compare to yesterday. Had 3 BM with loose stool and dark blood in it. Denies any nausea, vomiting, fever, chills, CP, SOB or dizziness. Patient currently on clear liquid diet. Surgery and GI consulted. Objective - Vital Signs/Intake and Output Vital Signs (last 24 hours): Temp Pulse Resp BP Pulse Ox 97.6 F 65 19 113/74 97 06/23/18 07:57 06/23/18 09:45 06/23/18 07:57 06/23/18 09:45 06/23/18 07:57 - Medications Medications: Current Medications Cholestyramine Resin (Questran) 4 gm PO DAILY [facility] Stop: 06/26/18 09:00 Last Admin: 06/23/18 09:46 Dose: 4 gm Dicyclomine HCl (Bentyl) 10 mg PO QID PRN PRN Reason: abdominal pain Last Admin: 06/23/18 04:49 Dose: 10 mg Hydrochlorothiazide (Microzide) 12.5 mg PO DAILY [facility] Last Admin: 06/23/18 09:45 Dose: 12.5 mg Sodium Chloride (Sodium Chloride 0.9%) 1,000 mls @ 100 mls/hr IV .Q10H [facility] Last Admin: 06/23/18 03:40 Dose: 100 mls/hr Insulin Human Lispro (Humalog) 0 units SC ACHS [facility]; Protocol Last Admin: 06/23/18 07:42 Dose: Not Given Losartan Potassium (Cozaar) 100 mg PO DAILY [facility] Last Admin: 06/23/18 09:45 Dose: 100 mg Morphine Sulfate (Morphine) 2 mg IVP Q4 PRN PRN Reason: Pain, moderate (4-7) Ondansetron HCl (Zofran Inj) 4 mg IVP Q4 PRN PRN Reason: Nausea/Vomiting Pantoprazole Sodium (Protonix Ec Tab) 40 mg PO DAILY [facility] Last Admin: 06/23/18 10:20 Dose: 40 mg Sucralfate (Carafate Oral Susp) 1 gm PO BID [facility] Last Admin: 06/23/18 10:19 Dose: 1 gm - Labs Labs: 06/23/18 05:30 06/23/18 05:30 - Constitutional Appears: Well, Non-toxic, No Acute Distress - Head Exam Head Exam: ATRAUMATIC, NORMOCEPHALIC - Eye Exam Eye Exam: EOMI, Normal appearance - ENT Exam ENT Exam: Mucous Membranes Moist - Neck Exam Neck Exam: Full ROM - Respiratory Exam Respiratory Exam: Clear to Ausculation Bilateral, NORMAL BREATHING PATTERN. absent: Rhonchi, Wheezes, Respiratory Distress - Cardiovascular Exam Cardiovascular Exam: REGULAR RHYTHM, +S1, +S2 - GI/Abdominal Exam GI & Abdominal Exam: Soft, Tenderness, Normal Bowel Sounds. absent: Distended Additional comments: Mild epigastric tenderness, Negative for guarding, rigidity or rebound - Extremities Exam Extremities Exam: absent: Calf Tenderness, Pedal Edema, Tenderness - Back Exam Back Exam: absent: CVA tenderness (L), CVA tenderness (R) - Neurological Exam Neurological Exam: Alert, Awake, Oriented x3 - Psychiatric Exam Psychiatric exam: Normal Affect, Normal Mood - Skin Skin Exam: Dry, Intact, Normal Color, Warm Assessment and Plan - Assessment and Plan (Free Text) Assessment: 77 y/o f with a PMHx of DM2, HTN and HLD is admitted for evaluation and management of persistent and intractable epigastric abdominal pain. -CT Abdomen showed cholelithiasis and small hiatal hernia but NO appendicitis. -Plan for EGD with biopsy tomorrow. Plan: Abdominal pain, epigastric -General Surgery consult, Dr Pool. F/U recommendations -Gastroenterology consult, Dr Falcon. F/U recommendations. -Morphine for analgesia, Pantoprazole and Zofran, PRN orders. -Stool H. Pylori Pending -Continue clear liquid diet. -NPO after midnight 06/23, Plan for EGD on 06/24. HTN -Controlled -Resumed home medications. -Monitor vitals DM2 -Controlled -HbA1c: 6.8 (06/11/18) -Hold: Metformin 500mg po bid -Placed on Medium dose insulin sliding scale -Monitor Accuchecks, ACHS Hyperlipidemia -Chol 128; LDL 41; HDL 51; Trig 196. -Hold: Atorvastatin 40mg daily, may damage liver. Prophylaxis -DVT: SCDs, Considering: Lovenox 40mg sc daily if NO surgery or after surgical procedure. -GI: Protonix 40mg po daily Case discussed with Dr. Alan Dominguez, PGY1 <Molina Phillips - Last Filed: 06/23/18 15:19> Objective - Vital Signs/Intake and Output Vital Signs (last 24 hours): Temp Pulse Resp BP Pulse Ox 97.6 F 65 19 113/74 97 06/23/18 07:57 06/23/18 09:45 06/23/18 07:57 06/23/18 09:45 06/23/18 07:57 - Medications Medications: Current Medications Cholestyramine Resin (Questran) 4 gm PO DAILY [facility] Stop: 06/26/18 09:00 Last Admin: 06/23/18 09:46 Dose: 4 gm Dicyclomine HCl (Bentyl) 10 mg PO QID PRN PRN Reason: abdominal pain Last Admin: 06/23/18 04:49 Dose: 10 mg Hydrochlorothiazide (Microzide) 12.5 mg PO DAILY [facility] Last Admin: 06/23/18 09:45 Dose: 12.5 mg Sodium Chloride (Sodium Chloride 0.9%) 1,000 mls @ 100 mls/hr IV .Q10H [facility] Last Admin: 06/23/18 03:40 Dose: 100 mls/hr Insulin Human Lispro (Humalog) 0 units SC ACHS [facility]; Protocol Last Admin: 06/23/18 07:42 Dose: Not Given Losartan Potassium (Cozaar) 100 mg PO DAILY [facility] Last Admin: 06/23/18 09:45 Dose: 100 mg Morphine Sulfate (Morphine) 2 mg IVP Q4 PRN PRN Reason: Pain, moderate (4-7) Ondansetron HCl (Zofran Inj) 4 mg IVP Q4 PRN PRN Reason: Nausea/Vomiting Last Admin: 06/23/18 12:40 Dose: 4 mg Pantoprazole Sodium (Protonix Ec Tab) 40 mg PO DAILY [facility] Last Admin: 06/23/18 10:20 Dose: 40 mg Sucralfate (Carafate Oral Susp) 1 gm PO BID [facility] Last Admin: 06/23/18 10:19 Dose: 1 gm - Labs Labs: 06/23/18 05:30 06/23/18 05:30 Attending/Attestation - Attestation I have personally seen and examined this patient.: Yes I have fully participated in the care of the patient.: Yes I have reviewed all pertinent clinical information, including history, physical exam and plan: Yes Notes (Text): 06/23/18 15:18 Patient seen and examined with resident. Case discussed and agreed with assessment.
[2018-06-23] MEDS ORDERED: Alum-Mag Hydrox-Simethicone Susp (30 mL) PO ONE (12:28)
[2018-06-23] MEDS ORDERED: DiphenhydrAMINE 50 mg/ml Inj IVP STA (13:06)
[2018-06-23] MEDS ORDERED: Alum-Mag Hydrox-Simethicone Susp (30 mL) PO PRN (18:53)
--- NOTE | 2018-06-23 21:33 | CARD ---
APPROVED REPORT Date of service: 06/22/2018 EKG Measurement Heart [id number] <Conclusion> Sinus rhythm with occasional premature ventricular complexes Low voltage QRS Borderline ECG
[2018-06-23] MEDS ORDERED: Lactated Ringer's 1,000 ML IV SCH (22:00)
--- NOTE | 2018-06-24 02:25 | CON ---
DATE: 06/23/2018 COMPREHENSIVE UROLOGY CONSULTATION TIME OF CONSULTATION: Roughly 4:45 p.m. BRIEF HISTORY: The patient is a 77-year-old female from [place] with a more than one-month history of intermittent abdominal pain, requiring her to eventually come to [facility] ER. The patient had a prior history of admission for abdominal pain and was offered an upper GI endoscopy which she refused at that time. The patient is now being worked up for most likely reflux disease. An abdominal pelvic CT done in the ER for this current admission on 06/22/2018, showed an incidental finding of a mid to lower right ureteral 4.5 mm calculus with minimal obstruction and just mild right-sided hydronephrosis. Her urinary bladder was incompletely distended, which may account for her thick-walled appearance. Check urinalysis to exclude cystitis. Above the stomach is incompletely distended which could account for a thick-walled appearance, rule out gastritis. Visualized loops of small bowel exhibit normal contour and caliber, no evidence of acute mechanical small bowel obstruction with oral contrast material seen in the colon to the level of the rectum. Scattered colonic diverticula present, however, no definite radiographic evidence of acute diverticulitis. Appendix appeared normal. Reproductive organs show an in situ IUD within the endometrial canal. The endometrium appears thickened, prior study which was obvious due to the presence of contrast enhancement. Pelvic ultrasound was recommended to exclude possibility of endometrial lesion including hyperplasia, polyps, or endometrial carcinoma. The patient has never had any renal colic and does not have any renal colic at this time. SOCIAL HISTORY: She has no history of any alcohol or tobacco use. PAST MEDICAL HISTORY: Includes diabetes mellitus, hypertension, hyperlipidemia. During her last admission for workup of abdominal pain, the CT of the abdomen and pelvis showed possible acute early appendicitis. PAST SURGICAL HISTORY: She had three C-sections. ALLERGIES: SHE HAS NO KNOWN ALLERGIES TO ANY MEDICATIONS. PHYSICAL EXAMINATION: Today: GENERAL: She is well-developed, well-nourished slightly obese female. She is alert. She is oriented. HEENT: Grossly within normal limits. NECK: Supple. Thyroid not palpable. ABDOMEN: Currently soft. Not distended, nontender. No CVA tenderness and no suprapubic tenderness. EXTREMITIES: She has full range of motion of both upper and lower extremities. LABORATORY EVALUATION: Today, 06/23/2018, shows a CBC with a WBC count of 9.3, hemoglobin of 12.2, and hematocrit of 37.3 with a platelet count of 168,000. Her chem profile shows a sodium of 138, potassium 3.8, chloride 101, CO2 30, BUN and creatinine 8 and 0.7 respectively with a GFR of greater than 60, random glucose is 119, calcium 8.7. Her urinalysis on 06/22/2018 showed the color was straw-colored, clarity was clear, pH 7, specific gravity 1.010, protein negative, glucose negative. Blood, nitrite, and bilirubin all negative. Urobilinogen 0.2 to 1, ketones 20, pH 7, and specific gravity 1.010. There was less than 1 rbc and less than 1 wbc per high-power field, indicating relatively normal urinalysis. DIAGNOSTIC IMPRESSION: For this patient, is a minimally obstructing mid right ureteral 4.5 mm stone. PLAN: For this patient is just to maintain the patient on Flomax 0.4 mg daily to help with passage of her stone. The patient is relatively asymptomatic regarding this stone at this time. Luis E Parks MD MTDBrian
[2018-06-24 06:10] LABS: INR 1.1; PROTHROMBIN TIME 12.5 Seconds (9.8-13.1)
[2018-06-24 06:13] LABS: PARTIAL THROMBOPLASTIN TIME 32.2 Seconds (25.6-37.1)
--- NOTE | 2018-06-24 07:32 | CP.PCM.PN ---
Subjective - Date & Time of Evaluation Date of Evaluation: 06/24/18 Time of Evaluation: 07:30 - Subjective Subjective: General Surgery Progress Note for Dr. Mcgovern 77F seen and evaluated at bedside this morning. Patient continues to have diarrhea, states it is black in color. Patient also complains of reflux symptoms. NPO for EGD today. Denies f/c, n/v, SOB, CP, or urinary symptoms. Objective - Vital Signs/Intake and Output Vital Signs (last 24 hours): Temp Pulse Resp BP Pulse Ox 98.5 F 62 18 122/68 96 06/24/18 00:16 06/24/18 00:16 06/24/18 00:16 06/24/18 00:16 06/24/18 00:16 - Medications Medications: Current Medications Al Hydrox/Mg Hydrox/Simethicone (Maalox Plus 30 Ml) 30 ml PO Q6 PRN PRN Reason: Indigestion / Heartburn Last Admin: 06/23/18 19:02 Dose: 30 ml Cholestyramine Resin (Questran) 4 gm PO DAILY [facility] Stop: 06/26/18 09:00 Last Admin: 06/23/18 09:46 Dose: 4 gm Dicyclomine HCl (Bentyl) 10 mg PO QID PRN PRN Reason: abdominal pain Last Admin: 06/23/18 04:49 Dose: 10 mg Hydrochlorothiazide (Microzide) 12.5 mg PO DAILY [facility] Last Admin: 06/23/18 09:45 Dose: 12.5 mg Sodium Chloride (Sodium Chloride 0.9%) 1,000 mls @ 100 mls/hr IV .Q10H [facility] Last Admin: 06/23/18 18:59 Dose: 100 mls/hr Lactated Ringer's (Lactated Ringer's) 1,000 mls @ 60 mls/hr IV .[id number] [facility] Last Admin: 06/23/18 21:45 Dose: 60 mls/hr Insulin Human Lispro (Humalog) 0 units SC ACHS [facility]; Protocol Last Admin: 06/23/18 21:44 Dose: Not Given Losartan Potassium (Cozaar) 100 mg PO DAILY [facility] Last Admin: 06/23/18 09:45 Dose: 100 mg Morphine Sulfate (Morphine) 2 mg IVP Q4 PRN PRN Reason: Pain, moderate (4-7) Ondansetron HCl (Zofran Inj) 4 mg IVP Q4 PRN PRN Reason: Nausea/Vomiting Last Admin: 06/23/18 12:40 Dose: 4 mg Pantoprazole Sodium (Protonix Ec Tab) 40 mg PO DAILY [facility] Last Admin: 06/23/18 10:20 Dose: 40 mg Sucralfate (Carafate Oral Susp) 1 gm PO BID [facility] Last Admin: 06/23/18 16:37 Dose: 1 gm Tamsulosin HCl (Flomax) 0.4 mg PO DAILY [facility] - Labs Labs: 06/23/18 05:30 06/23/18 05:30 PT 12.5 Seconds (9.8-13.1) 06/24/18 05:55 INR 1.1 06/24/18 05:55 APTT 32.2 Seconds (25.6-37.1) 06/24/18 05:55 - Constitutional Appears: Well, Non-toxic, No Acute Distress - Head Exam Head Exam: ATRAUMATIC, NORMAL INSPECTION, NORMOCEPHALIC - Eye Exam Eye Exam: EOMI - ENT Exam ENT Exam: Mucous Membranes Moist - Respiratory Exam Respiratory Exam: NORMAL BREATHING PATTERN. absent: Respiratory Distress - GI/Abdominal Exam GI & Abdominal Exam: Soft, Normal Bowel Sounds. absent: Distended, Tenderness - Neurological Exam Neurological Exam: Alert, Awake - Psychiatric Exam Psychiatric exam: Normal Affect, Normal Mood - Skin Skin Exam: Dry, Intact, Normal Color, Warm Assessment and Plan - Assessment and Plan (Free Text) Assessment: 77F w/ abdominal pain 2/2 gastritis vs. PUD Plan: Planned for EGD per GI today Will f/u EGD and pathology NPO for procedure Antiemetics and analgesics as needed GI PPX Encourage ambulation and OOTBC Further recommendations per Dr. Froilan Cameron PGY1
[2018-06-24] MEDS: Insulin Lispro (humaLOG) 100 Units/ml Inj SC SCH ×2 (07:39→11:58)
[2018-06-24] MEDS: Sucralfate 1 gm/10 ml Oral Susp UD PO SCH ×2 (08:09→11:49)
[2018-06-24] MEDS: Cholestyramine 4 gm/Pkt UD PO SCH ×2 (08:10→11:51)
[2018-06-24] MEDS: Pantoprazole 40 mg EC Tab PO SCH ×2 (08:10→11:51)
[2018-06-24 09:03] LABS: BASO # 0.1 K/uL (0.0-0.2); BASO % 0.8 % (0.0-2.0); EOS # 0.1 K/uL (0.0-0.7); EOS % 0.7 % (0.0-4.0); HEMOGLOBIN 12.7 g/dL (12.0-16.0); LYMPH # 2.1 K/uL (1.0-4.3); LYMPH % 18.9 % (20.0-40.0); MEAN CORPUSCULAR HEMOGLOBIN 27.9 pg (27.0-31.0); MEAN CORPUSCULAR HGB CONC 32.1 g/dL (33.0-37.0); MEAN PLATELET VOLUME 10.1 fl (7.2-11.7); MONO # 0.7 K/uL (0.0-0.8); MONO % 6.1 % (0.0-10.0); NEUT # 8.2 K/uL (1.8-7.0); NEUT % 73.5 % (50.0-75.0); RBC 4.56 Mil/uL (3.80-5.20); RED CELL DISTRIBUTION WIDTH 13.7 % (11.5-14.5); WHITE BLOOD COUNT 11.1 K/uL (4.8-10.8)
[2018-06-24] MEDS ORDERED: Lactated Ringer's 500 ML IV ONE (09:57)
[2018-06-24] MEDS ORDERED: Etomidate 20 mg/10ml Inj IV ONE (10:43)
[2018-06-24] MEDS ORDERED: Propofol 10 mg/ml Inj (20 ML) ONE (10:43)
[2018-06-24 11:14] VITALS: TEMP 97.1; O2SAT 97
[2018-06-24] MEDS: Sodium Chloride 0.9% 1,000 ML IV SCH (11:22)
[2018-06-24 11:30] VITALS: BP 141/64; PULSE 59; RESP 16
--- NOTE | 2018-06-24 14:55 | CP.PCM.DIS ---
<Dawood Carrasco - Last Filed: 06/24/18 15:27> Provider - Provider Date of Admission: 06/22/18 16:49 Attending physician: Molina Phillips MD Primary care physician: Irineo Cornejo. Consults: 06/22/18 16:59 Urology Consult Stat Comment: Consulting Provider: Luis E Parks Consulting Physician: Luis E Parks Reason for Consult: right renal colic 06/22/18 17:43 Gastroenterology Consult Stat Comment: Consulting Provider: Irineo Falcon Consulting Physician: Irineo Falcon Reason for Consult: intractable epigastric pain with cholelithiasis 06/23/18 00:14 General Surgery Consult Routine Comment: Consulting Provider: Steven Mcgovern Consulting Physician: Stveen Mcgovern Reason for Consult: Intractable abdominal pain Time Spent in preparation of Discharge (in minutes): 35 Diagnosis - Discharge Diagnosis (1) Esophagitis determined by endoscopy Status: Acute Comment: -PO FLuconazole was prescribed. Dietary changes reinforced such as: avoid spicy, fatty food, caffeine and chocolate. (2) Abdominal pain Status: Acute Comment: -Due to gastritis and esophagitis. Endoscopy performed. Medication Rx given for symptomatic management. (3) Hyperlipidemia Status: Acute Comment: -Atorvastatin was held. Hospital Course - Lab Results Lab Results: Most Recent Lab Values WBC 11.1 K/uL (4.8-10.8) H 06/24/18 08:55 RBC 4.56 Mil/uL (3.80-5.20) 06/24/18 08:55 Hgb 12.7 g/dL (12.0-16.0) 06/24/18 08:55 Hct 39.6 % (34.0-47.0) 06/24/18 08:55 MCV 87.0 fl (81.0-99.0) 06/24/18 08:55 MCH 27.9 pg (27.0-31.0) 06/24/18 08:55 MCHC 32.1 g/dL (33.0-37.0) L 06/24/18 08:55 RDW 13.7 % (11.5-14.5) 06/24/18 08:55 Plt Count 173 K/uL (130-400) 06/24/18 08:55 MPV 10.1 fl (7.2-11.7) 06/24/18 08:55 Neut % (Auto) 73.5 % (50.0-75.0) 06/24/18 08:55 Lymph % (Auto) 18.9 % (20.0-40.0) L 06/24/18 08:55 [place] % (Auto) 6.1 % (0.0-10.0) 06/24/18 08:55 Eos % (Auto) 0.7 % (0.0-4.0) 06/24/18 08:55 Baso % (Auto) 0.8 % (0.0-2.0) 06/24/18 08:55 Neut # (Auto) 8.2 K/uL (1.8-7.0) H 06/24/18 08:55 Lymph # (Auto) 2.1 K/uL (1.0-4.3) 06/24/18 08:55 [place] # (Auto) 0.7 K/uL (0.0-0.8) 06/24/18 08:55 Eos # (Auto) 0.1 K/uL (0.0-0.7) 06/24/18 08:55 Baso # (Auto) 0.1 K/uL (0.0-0.2) 06/24/18 08:55 PT 12.5 Seconds (9.8-13.1) 06/24/18 05:55 INR 1.1 06/24/18 05:55 APTT 32.2 Seconds (25.6-37.1) 06/24/18 05:55 Sodium 138 mmol/l (132-148) 06/23/18 05:30 Potassium 3.8 MMOL/L (3.6-5.0) 06/23/18 05:30 Chloride 101 mmol/L (98-107) 06/23/18 05:30 Carbon Dioxide 30 mmol/L (22-30) 06/23/18 05:30 Anion Gap 11 (10-20) 06/23/18 05:30 BUN 8 mg/dl (7-17) 06/23/18 05:30 Creatinine 0.7 mg/dl (0.7-1.2) 06/23/18 05:30 Est GFR ( Amer) > 60 06/23/18 05:30 Est GFR (Non-Af Amer) > 60 06/23/18 05:30 POC Glucose (mg/dL) 129 mg/dL (65-110) H 06/24/18 11:56 Random Glucose 119 mg/dL (65-105) H 06/23/18 05:30 Calcium 8.7 mg/dL (8.4-10.2) 06/23/18 05:30 Magnesium 2.0 MG/DL (1.6-2.3) 06/22/18 08:45 Total Bilirubin 1.0 mg/dl (0.2-1.3) 06/22/18 08:45 AST 27 U/L (14-36) 06/22/18 08:45 ALT 31 U/L (9-52) 06/22/18 08:45 Alkaline Phosphatase 46 U/L (38-126) 06/22/18 08:45 Troponin I < 0.0120 ng/mL (0.00-0.120) 06/22/18 08:45 Total Protein 7.4 G/DL (6.3-8.2) 06/22/18 08:45 Albumin 4.3 g/dL (3.5-5.0) 06/22/18 08:45 Globulin 3.1 gm/dL (2.2-3.9) 06/22/18 08:45 Albumin/Globulin Ratio 1.4 (1.0-2.1) 06/22/18 08:45 Lipase 42 U/L (23-300) 06/22/18 08:45 Urine Color Straw (YELLOW) 06/22/18 11:09 Urine Clarity Clear (Clear) 06/22/18 11:09 Urine pH 7.0 (5.0-8.0) 06/22/18 11:09 Ur Specific [place] 1.010 (1.003-1.030) 06/22/18 11:09 Urine Protein Negative mg/dL (NEGATIVE) 06/22/18 11:09 Urine Glucose (UA) Neg mg/dL (NEGATIVE) 06/22/18 11:09 Urine Ketones 20 mg/dL (NEGATIVE) 06/22/18 11:09 Urine Blood Negative (NEGATIVE) 06/22/18 11:09 Urine Nitrate Negative (NEGATIVE) 06/22/18 11:09 Urine Bilirubin Negative (NEGATIVE) 06/22/18 11:09 Urine Urobilinogen 0.2-1.0 mg/dL (0.2-1.0) 06/22/18 11:09 Ur Leukocyte Esterase Neg Krystal/uL (Negative) 06/22/18 11:09 Urine RBC (Auto) < 1 /hpf (0-3) 06/22/18 11:09 Urine Microscopic WBC < 1 /hpf (0-5) 06/22/18 11:09 Ur Squamous Epith Cells 1 /hpf (0-5) 06/22/18 11:09 - Hospital Course Hospital Course: 77 y/o f with a PMHx of DM2, HTN and HLD was admitted for evaluation and management of persistent and intractable epigastric abdominal pain. CT Abdomen showed cholelithiasis, small hiatal hernia, small non-obstructing 4.5mm calculus in R ureter but NO appendicitis. Trawl Net Maker evaluated patient and recommended endoscopy, urologist recommended Flomax while hospitalized for calculus passage. Abdominal pain was controlled with PO Sucralfate, Maalox and pantoprazole. --EGD was performed today, 06/24/18, showed moderately severe esophagitis, whitish exudate on GE junction, possible colette vs HSV and a 2cm hiatal hernia. Biopsy samples taken. --Pt reported episodes of looses stools, pt was maintained on liquid diet and NPO. Loperamide was given with improvement. Today, pt reported feeling well, stable, tolerating PO, is being discharged home with Rx for Fluconazole 100mg [id number] days, Protonix 40mg, Mylicon 80mg and Carafate 1gr. Atorvastatin was held for 2 weeks and dietary changes were recommended. Pt instructed to f/u with PCP within 1 week, and liberal [facility] de[facility] within 2 weeks. - Date & Time of H&P Date of H&P: 06/22/18 Time of H&P: 17:41 Discharge Exam - Head Exam Head Exam: ATRAUMATIC, NORMAL INSPECTION, NORMOCEPHALIC - Eye Exam Eye Exam: EOMI, Normal appearance - ENT Exam ENT Exam: Mucous Membranes Moist - Neck Exam Neck exam: Full Rom, Normal Inspection - Respiratory Exam Respiratory Exam: Clear to PA & Lateral, NORMAL BREATHING PATTERN. absent: Rhonchi, Wheezes - Cardiovascular Exam Cardiovascular Exam: REGULAR RHYTHM, +S1, +S2 - GI/Abdominal Exam GI & Abdominal Exam: Normal Bowel Sounds, Soft. absent: Guarding, Hernia, Rebound, Tenderness - Extremities Exam Extremities exam: full ROM, normal inspection - Back Exam Back exam: absent: CVA tenderness (L), CVA tenderness (R) - Neurological Exam Neurological exam: Alert, Oriented x3 Discharge Plan - Discharge Medications Prescriptions: RX: Fluconazole 100 mg PO DAILY #14 tablet RX: Pantoprazole [Protonix EC Tab] 40 mg PO DAILY #14 ect Simethicone [Mylicon Chew Tab] 80 mg PO QID #28 ctb RX: Sucralfate [Carafate Oral Susp] 1 gm PO BID #28 udc - Follow Up Plan Condition: FAIR Disposition: HOME/ ROUTINE Instructions: Acid Reflux (Gastroesophageal Reflux Disease), Adult (DC), [place] Diet, Esophagoscopy (DC) Additional Instructions: hacer valentina con walsh primario y gastroenterologo dentro 1 semana Referrals: Luis E Parks MD [Staff Provider] - Irineo Falcon MD [Staff Provider] - Steven Mcgovern MD [Staff Provider] - Irineo Denny MD [Family Provider] - <Molina Phillips - Last Filed: 06/24/18 17:18> Provider - Provider Date of Admission: 06/22/18 16:49 Attending physician: Molina Phillips MD Consults: 06/22/18 16:59 Urology Consult Stat Comment: Consulting Provider: Luis E Parks Consulting Physician: Luis E Parks Reason for Consult: right renal colic 06/22/18 17:43 Gastroenterology Consult Stat Comment: Consulting Provider: Irineo Falcon Consulting Physician: Irineo Falcon Reason for Consult: intractable epigastric pain with cholelithiasis 06/23/18 00:14 General Surgery Consult Routine Comment: Consulting Provider: Steven Mcgovern Consulting Physician: Steven Mcgovern Reason for Consult: Intractable abdominal pain Hospital Course - Lab Results Lab Results: Most Recent Lab Values WBC 11.1 K/uL (4.8-10.8) H 06/24/18 08:55 RBC 4.56 Mil/uL (3.80-5.20) 06/24/18 08:55 Hgb 12.7 g/dL (12.0-16.0) 06/24/18 08:55 Hct 39.6 % (34.0-47.0) 06/24/18 08:55 MCV 87.0 fl (81.0-99.0) 06/24/18 08:55 MCH 27.9 pg (27.0-31.0) 06/24/18 08:55 MCHC 32.1 g/dL (33.0-37.0) L 06/24/18 08:55 RDW 13.7 % (11.5-14.5) 06/24/18 08:55 Plt Count 173 K/uL (130-400) 06/24/18 08:55 MPV 10.1 fl (7.2-11.7) 06/24/18 08:55 Neut % (Auto) 73.5 % (50.0-75.0) 06/24/18 08:55 Lymph % (Auto) 18.9 % (20.0-40.0) L 06/24/18 08:55 [place] % (Auto) 6.1 % (0.0-10.0) 06/24/18 08:55 Eos % (Auto) 0.7 % (0.0-4.0) 06/24/18 08:55 Baso % (Auto) 0.8 % (0.0-2.0) 06/24/18 08:55 Neut # (Auto) 8.2 K/uL (1.8-7.0) H 06/24/18 08:55 Lymph # (Auto) 2.1 K/uL (1.0-4.3) 06/24/18 08:55 [place] # (Auto) 0.7 K/uL (0.0-0.8) 06/24/18 08:55 Eos # (Auto) 0.1 K/uL (0.0-0.7) 06/24/18 08:55 Baso # (Auto) 0.1 K/uL (0.0-0.2) 06/24/18 08:55 PT 12.5 Seconds (9.8-13.1) 06/24/18 05:55 INR 1.1 06/24/18 05:55 APTT 32.2 Seconds (25.6-37.1) 06/24/18 05:55 Sodium 138 mmol/l (132-148) 06/23/18 05:30 Potassium 3.8 MMOL/L (3.6-5.0) 06/23/18 05:30 Chloride 101 mmol/L (98-107) 06/23/18 05:30 Carbon Dioxide 30 mmol/L (22-30) 06/23/18 05:30 Anion Gap 11 (10-20) 06/23/18 05:30 BUN 8 mg/dl (7-17) 06/23/18 05:30 Creatinine 0.7 mg/dl (0.7-1.2) 06/23/18 05:30 Est GFR ( Amer) > 60 06/23/18 05:30 Est GFR (Non-Af Amer) > 60 06/23/18 05:30 POC Glucose (mg/dL) 129 mg/dL (65-110) H 06/24/18 11:56 Random Glucose 119 mg/dL (65-105) H 06/23/18 05:30 Calcium 8.7 mg/dL (8.4-10.2) 06/23/18 05:30 Magnesium 2.0 MG/DL (1.6-2.3) 06/22/18 08:45 Total Bilirubin 1.0 mg/dl (0.2-1.3) 06/22/18 08:45 AST 27 U/L (14-36) 06/22/18 08:45 ALT 31 U/L (9-52) 06/22/18 08:45 Alkaline Phosphatase 46 U/L (38-126) 06/22/18 08:45 Troponin I < 0.0120 ng/mL (0.00-0.120) 06/22/18 08:45 Total Protein 7.4 G/DL (6.3-8.2) 06/22/18 08:45 Albumin 4.3 g/dL (3.5-5.0) 06/22/18 08:45 Globulin 3.1 gm/dL (2.2-3.9) 06/22/18 08:45 Albumin/Globulin Ratio 1.4 (1.0-2.1) 06/22/18 08:45 Lipase 42 U/L (23-300) 06/22/18 08:45 Urine Color Straw (YELLOW) 06/22/18 11:09 Urine Clarity Clear (Clear) 06/22/18 11:09 Urine pH 7.0 (5.0-8.0) 06/22/18 11:09 Ur Specific [place] 1.010 (1.003-1.030) 06/22/18 11:09 Urine Protein Negative mg/dL (NEGATIVE) 06/22/18 11:09 Urine Glucose (UA) Neg mg/dL (NEGATIVE) 06/22/18 11:09 Urine Ketones 20 mg/dL (NEGATIVE) 06/22/18 11:09 Urine Blood Negative (NEGATIVE) 06/22/18 11:09 Urine Nitrate Negative (NEGATIVE) 06/22/18 11:09 Urine Bilirubin Negative (NEGATIVE) 06/22/18 11:09 Urine Urobilinogen 0.2-1.0 mg/dL (0.2-1.0) 06/22/18 11:09 Ur Leukocyte Esterase Neg Krystal/uL (Negative) 06/22/18 11:09 Urine RBC (Auto) < 1 /hpf (0-3) 06/22/18 11:09 Urine Microscopic WBC < 1 /hpf (0-5) 06/22/18 11:09 Ur Squamous Epith Cells 1 /hpf (0-5) 06/22/18 11:09 Attending/Attestation - Attestation I have personally seen and examined this patient.: Yes I have fully participated in the care of the patient.: Yes I have reviewed all pertinent clinical information, including history, physical exam and plan: Yes Notes (Text): 06/24/18 17:16 Patient seen and examined with resident. Case discussed and agreed with assessment. Patient discharged in stable condition and advised follow up with Dr Falcon.
== END 2018-06-24 15:43 | disposition home or self-care (01) ==
LOC: H.ER 07:27 → H.ERHOLD 16:49 → H.MEDSURG1 21:30
DX: K21.0 Gastro-esophageal reflux disease with esophagitis (principal); K29.70 Gastritis, unspecified, without bleeding; K44.9 Diaphragmatic hernia without obstruction or gangrene; N20.1 Calculus of ureter; E11.9 Type 2 diabetes mellitus without complications; G89.29 Other chronic pain; E78.5 Hyperlipidemia, unspecified; E78.00 Pure hypercholesterolemia, unspecified; I10 Essential (primary) hypertension; M81.0 Age-related osteoporosis without current pathological fracture; M19.90 Unspecified osteoarthritis, unspecified site; Z87.891 Personal history of nicotine dependence; Z79.84 Long term (current) use of oral hypoglycemic drugs
CPT/HCPCS: 36415; 43239; 74176; 80048; 80053; 81003; 82948; 83690; 83735; 84484; 85025; 85610; 85730; 87045; 87338; 88104; 88305; 93005; 99284; G0328; G0378; J1200; J2001; J2405; J2704; J7030; J7120; Q9966

== ENCOUNTER 2018-06-27 12:15 | Emergency (ER) | payer MEDICARE, OTHER ==
[2018-06-27 12:15] VITALS: BMI 40.6
[2018-06-27 12:24] VITALS: O2SAT 99
[2018-06-27] MEDS ORDERED: Alum-Mag Hydrox-Simethicone Susp (30 mL) PO STA (12:52)
[2018-06-27] MEDS ORDERED: Alum-Mag Hydrox-Simethicone Susp (30 mL) ONE ×2 (12:56→17:35)
--- NOTE | 2018-06-27 13:47 | ED PDOC ---
HPI: Abdomen Time Seen by Provider: 06/27/18 12:26 Chief Complaint (Nursing): Abdominal Pain Chief Complaint (Provider): Epigastric abdominal pain History Per: Patient History/Exam Limitations: no limitations Onset/Duration Of Symptoms: Days Additional Complaint(s): 77 yo female with HTN, DM, high cholesterol and gastritis presents with epigastric abdominal pain. PT admitted twice and seen inpatient by Dr. Falcon. PT diagnosed with esophagitis and gastritis. Pt states the pain is the same as it has been over the last few weeks. Pt also reports decreased appetite and constipation. PT states she has appointment with Dr. Denny at 2pm and does not want to miss it. Pt has endoscopy inpatient. Past Medical History Reviewed: Historical Data, Nursing Documentation, Vital Signs Vital Signs: Last Vital Signs Temp 97.7 F 06/27/18 12:22 Pulse 73 06/27/18 12:22 Resp 16 06/27/18 12:22 BP 147/86 06/27/18 12:22 Pulse Ox 99 06/27/18 12:22 - Medical History PMH: Arthritis, Back Problems, Diabetes (type II), HTN, Hypercholesterolemia, Hyperlipidemia, Osteoporosis, Chronic Pain (back) Denies: Hepatitis, HIV, Chronic Kidney Disease, Seizures, Sexually Transmitted Disease - Surgical History Surgical History: (x3) - Family History Family History: States: Unknown Family Hx - Home Medications Home Medications: Ambulatory Orders Medication Instructions Recorded RX: Valsartan/Hydrochlorothiazide 1 tab PO DAILY 10/17/14 [Valsartan-Hctz 160-12.5 mg Tab] RX: metFORMIN [glucOPHAGE] 500 mg PO BID 02/28/16 RX: Cholecalciferol (Vitamin D3) 2,000 unit PO DAILY 06/19/18 [Vitamin D3] RX: Meclizine [Meclizine*] 25 mg PO Q8 PRN 06/19/18 RX: Fluconazole 100 mg PO DAILY #14 tablet 06/24/18 RX: Pantoprazole [Protonix EC Tab] 40 mg PO DAILY #14 ect 06/24/18 RX: Sucralfate [Carafate Oral Susp] 1 gm PO BID #28 udc 06/24/18 Simethicone [Mylicon Chew Tab] 80 mg PO QID #28 ctb 06/24/18 - Allergies Allergies/Adverse Reactions: Allergies Allergy/AdvReac Type Severity Reaction Status Date / Time No Known Allergies Allergy Verified 06/27/18 15:54 Review of Systems ROS Statement: Except As Marked, All Systems Reviewed And Found Negative Constitutional: Negative for: Fever, Chills Gastrointestinal: Positive for: Abdominal Pain. Negative for: Nausea, Vomiting, Diarrhea Physical Exam - Reviewed Nursing Documentation Reviewed: Yes Vital Signs Reviewed: Yes - Physical Exam Appears: Positive for: Well, Non-toxic, No Acute Distress Head Exam: Positive for: ATRAUMATIC, NORMAL INSPECTION, NORMOCEPHALIC Skin: Positive for: Normal Color, Warm, DRY Eye Exam: Positive for: Normal appearance ENT: Positive for: Normal ENT Inspection Neck: Positive for: Normal, Painless ROM Cardiovascular/Chest: Positive for: Regular Rate, Rhythm Respiratory: Positive for: Normal Breath Sounds. Negative for: Accessory Muscle Use, Respiratory Distress Gastrointestinal/Abdominal: Positive for: Normal Exam, Soft, Tenderness Back: Positive for: Normal Inspection Extremity: Positive for: Normal ROM Neurologic/Psych: Positive for: Alert, Oriented - ECG O2 Sat by Pulse Oximetry: 99 Pulse Ox Interpretation: Normal Medical Decision Making Medical Decision Makin - PT reports feeling much better on re-evaluation. PT would like to leave to go to her appointment with Dr. Rachael Denny at 2pm. Disposition - Clinical Impression Clinical Impression: Esophagitis determined by endoscopy, Gastritis - Disposition Referrals: Irineo Falcon MD [Staff Provider] - [facility] [Outside] Disposition: Routine/Home Disposition Time: 13:30 Condition: STABLE Instructions: Gastritis (DC) Forms: [employer] (Khmer) Print Language: FRISIAN
[2018-06-27 14:08] VITALS: BP 130/78; PULSE 78; RESP 19; TEMP 97
--- NOTE | 2018-06-27 19:14 | CARD ---
APPROVED REPORT Date of service: 06/27/2018 EKG Measurement Heart [id number] <Conclusion> Normal sinus rhythm Normal ECG
== END 2018-06-27 14:09 | disposition home or self-care (01) ==
LOC: H.ER 12:15
DX: K29.70 Gastritis, unspecified, without bleeding (principal); K20.9 Esophagitis, unspecified; E11.9 Type 2 diabetes mellitus without complications; E78.00 Pure hypercholesterolemia, unspecified; G89.29 Other chronic pain; I10 Essential (primary) hypertension; M81.0 Age-related osteoporosis without current pathological fracture; Z79.84 Long term (current) use of oral hypoglycemic drugs

== ENCOUNTER 2018-06-27 15:53 | Emergency (ER) | payer MEDICARE, OTHER ==
[2018-06-27 15:53] VITALS: BMI 40.6
[2018-06-27] MEDS ORDERED: Alum-Mag Hydrox-Simethicone Susp (30 mL) PO ONE (16:44)
[2018-06-27] MEDS ORDERED: Sodium Chloride 0.9% 1,000 ML IV STA (16:46)
--- NOTE | 2018-06-27 17:07 | ED PDOC ---
HPI: Abdomen Additional Complaint(s): 77 y/o female with a PMHx of gastritis, DM2, HTN and HLD presents to ED for the second time today with complaints of severe epigastric pain and generalized weakness since this morning. Reports + constipation (last BM this AM). Patient was seen earlier in the ED, was given viscous lidocaine, mylicon and famotidine. Patient's symptom improved and was discharged to / with her PMD today. Patient went to see her PMD at [facility] this afternoon, states she developed severe epigastric pain again and felt generalized weak. Patient and family members brought patient with ER for further evaluation. Patient denies any chest pain, dyspnea, fever, chills, nausea or vomiting. Of note, patient was discharged from [facility] on 06/24/18, had EGD which showed severe gastritis. Patient was discharged home with pantoprazole, carafate, simethicone and diflucan. Patient reports she started taking medications from yesterday since discharge. PMD: [facility] <Sultan Chirag - Last Filed: 06/27/18 19:19> <Oliver Sinclair - Last Filed: 06/27/18 20:00> Time Seen by Provider: 06/27/18 16:25 Chief Complaint (Nursing): Weakness/Neurological Deficit Supervising Attending Note - Supervising Attending Note The Documented history was done by the: Physician Insurance Agency Sales Manager The documented physical exam was done by the: Physician Insurance Agency Sales Manager The documented procedures were done by the: Physician Insurance Agency Sales Manager - Attestation: I have personally seen and examined this patient.: Yes I have fully participated in the care of the patient.: Yes I have reviewed all pertinent clinical information: Yes - Notes: Notes:: Epigastric pain. Long time for symptoms and had an extensive workup for it. <Oliver Sinclair - Last Filed: 06/27/18 20:00> Past Medical History Vital Signs: Last Vital Signs Temp 98.7 F 06/27/18 15:55 Pulse 71 06/27/18 15:55 Resp 16 06/27/18 15:55 BP 160/100 H 06/27/18 15:55 Pulse Ox 99 06/27/18 15:55 - Medical History PMH: Arthritis, Back Problems, Diabetes (type II), HTN, Hypercholesterolemia, Hyperlipidemia, Osteoporosis, Chronic Pain (back) Denies: Hepatitis, HIV, Chronic Kidney Disease, Seizures, Sexually Transmitted Disease - Surgical History Surgical History: (x3) - Family History Family History: States: Unknown Family Hx <[place] - Last Filed: 06/27/18 19:19> Vital Signs: Last Vital Signs Temp 98.7 F 06/27/18 15:55 Pulse 71 06/27/18 15:55 Resp 16 06/27/18 15:55 BP 160/100 H 06/27/18 15:55 Pulse Ox 99 06/27/18 19:21 <Oliver Sinclair - Last Filed: 06/27/18 20:00> - Home Medications Home Medications: Ambulatory Orders Medication Instructions Recorded Valsartan/Hydrochlorothiazide 1 tab PO DAILY 10/17/14 [Valsartan-Hctz 160-12.5 mg Tab] metFORMIN [glucOPHAGE] 500 mg PO BID 02/28/16 Cholecalciferol (Vitamin D3) 2,000 unit PO DAILY 06/19/18 [Vitamin D3] Meclizine [Meclizine*] 25 mg PO Q8 PRN 06/19/18 Fluconazole 100 mg PO DAILY #14 tablet 06/24/18 Pantoprazole [Protonix EC Tab] 40 mg PO DAILY #14 ect 06/24/18 Simethicone [Mylicon Chew Tab] 80 mg PO QID #28 ctb 06/24/18 Sucralfate [Carafate Oral Susp] 1 gm PO BID #28 udc 06/24/18 - Allergies Allergies/Adverse Reactions: Allergies Allergy/AdvReac Type Severity Reaction Status Date / Time No Known Allergies Allergy Verified 06/27/18 15:54 Review of Systems ROS Statement: Except As Marked, All Systems Reviewed And Found Negative <[place] - Last Filed: 06/27/18 19:19> Physical Exam - Physical Exam Appears: Positive for: Non-toxic, No Acute Distress Head Exam: Positive for: ATRAUMATIC, NORMOCEPHALIC Skin: Positive for: Normal Color, Warm Neck: Positive for: Normal, Supple Cardiovascular/Chest: Positive for: Regular Rate, Rhythm. Negative for: Murmur Respiratory: Positive for: Normal Breath Sounds. Negative for: Accessory Muscle Use, Crackles, Rales, Wheezing, Respiratory Distress Gastrointestinal/Abdominal: Positive for: Bowel Sounds, Soft, Tenderness (Mild epigastric tenderness). Negative for: Guarding, Rebound Extremity: Negative for: Pedal Edema, Calf Tenderness Neurologic/Psych: Positive for: Alert, Oriented <[place] - Last Filed: 06/27/18 19:19> - Physical Exam Cardiovascular/Chest: Positive for: Regular Rate, Rhythm Respiratory: Positive for: Normal Breath Sounds Gastrointestinal/Abdominal: Positive for: Tenderness <Oliver Sinclair - Last Filed: 06/27/18 20:00> - Laboratory Results Result Diagrams: 06/27/18 17:45 06/27/18 17:45 - ECG O2 Sat by Pulse Oximetry: 99 - Progress ED Course And Treament: 77 yo female presents with epigastric pain and generalized weakness. Plan: Protonix 40 mg ivp Maalox Viscous lidocaine IVF's NS 1 L @1000cc/hr EKG CBC CMP Troponin Patient seen, examined and plan d/w Dr. Sinclair Patient's granddaughter declined EKG <Sultan Chirag - Last Filed: 06/27/18 19:19> - Laboratory Results Result Diagrams: 06/27/18 17:45 06/27/18 17:45 Interpretation Of Abn Labs: 3.2 k - ECG Pulse Ox Interpretation: Normal - Progress ED Course And Treament: 1948: Stable. AAox3. Pain free. Tolerated po. Had a long conversation about meds and symptoms. Symptoms ongoing for a long time and had an extensive work up. Has gastritis and meds for it that she started yesterday. Advised to fu with pcp and GI. <Oliver Sinclair - Last Filed: 06/27/18 20:00> Disposition <[place] - Last Filed: 06/27/18 19:19> - Patient ED Disposition Is Patient to be Admitted: No Counseled Patient/Family Regarding: Studies Performed, Diagnosis, Need For Followup - Disposition Disposition: Routine/Home Disposition Time: 19:59 <Oliver Sinclair - Last Filed: 06/27/18 20:00> - Clinical Impression Clinical Impression: Gastritis - Disposition Referrals: Irineo Falcon MD [Staff Provider] - 06/28/18 [facility] [Outside] - 06/28/18 Condition: STABLE Additional Instructions: Return if not better in 3 days. Take your medications as discussed. Instructions: Gastritis Forms: [facility] (Nauruan) Print Language: SAO TOMEAN
[2018-06-27 17:54] LABS: BASO # 0.1 K/uL (0.0-0.2); BASO % 0.6 % (0.0-2.0); EOS # 0.1 K/uL (0.0-0.7); EOS % 0.7 % (0.0-4.0); HEMOGLOBIN 13.3 g/dL (12.0-16.0); LYMPH # 2.1 K/uL (1.0-4.3); LYMPH % 20.2 % (20.0-40.0); MEAN CORPUSCULAR HEMOGLOBIN 27.9 pg (27.0-31.0); MEAN CORPUSCULAR HGB CONC 32.1 g/dL (33.0-37.0); MONO # 0.9 K/uL (0.0-0.8); MONO % 8.3 % (0.0-10.0); NEUT # 7.2 K/uL (1.8-7.0); NEUT % 70.2 % (50.0-75.0); NRBC % 0.1 % (0.0-0.0); RBC 4.76 Mil/uL (3.80-5.20); RED CELL DISTRIBUTION WIDTH 14.5 % (11.5-14.5); WHITE BLOOD COUNT 10.3 K/uL (4.8-10.8)
[2018-06-27 18:11] LABS: ALB/GLOB RATIO 1.4 (1.0-2.1); ALBUMIN 4.3 g/dL (3.5-5.0); ALT/SGPT 37 U/L (9-52); AST/SGOT 27 U/L (14-36); BLOOD UREA NITROGEN 7 mg/dl (7-17); CALCIUM 9.4 mg/dL (8.4-10.2); GFR NON-AFRICAN AMERICAN > 60; LIPASE 29 U/L (23-300)
[2018-06-27] MEDS ORDERED: Potassium Chloride 20 mEq ER Tab PO ONE (19:54)
[2018-06-27 20:43] VITALS: BP 125/67; PULSE 76; RESP 18; TEMP 98; O2SAT 100
== END 2018-06-27 20:42 | disposition home or self-care (01) ==
LOC: H.ER 15:53
DX: K29.70 Gastritis, unspecified, without bleeding (principal); M62.81 Muscle weakness (generalized); E11.9 Type 2 diabetes mellitus without complications; E78.00 Pure hypercholesterolemia, unspecified; G89.29 Other chronic pain; I10 Essential (primary) hypertension; M81.0 Age-related osteoporosis without current pathological fracture; Z79.84 Long term (current) use of oral hypoglycemic drugs
CPT/HCPCS: 80053; 82948; 83690; 84484; 85025; 96374; 99284; C9113; J7030

== ENCOUNTER 2018-06-30 17:23 | Emergency (ER) | payer MEDICARE, OTHER ==
[2018-06-30 17:23] VITALS: BMI 40.6
--- NOTE | 2018-06-30 18:09 | ED PDOC ---
HPI: General Adult Time Seen by Provider: 06/30/18 17:28 Chief Complaint (Nursing): Weakness/Neurological Deficit Chief Complaint (Provider): Generalized Weakness History Per: Patient, Family (daughter) History/Exam Limitations: no limitations Onset/Duration Of Symptoms: Worse Since (x3 days) Current Symptoms Are (Timing): Still Present Additional Complaint(s): 77 year old woman presents to the ED with daughter for evaluation of generalized weakness associated with poor appetite. Patient has been here multiple times in the past month for similar complaints, but as per daughter, the past three days patient has been so weak that she is unable to sleep, see jossie afraid to. Patient was recently diagnosed with severe gastritis and started meds one week ago after an endoscopy. Otherwise denies abdominal pain, nausea, diarrhea, fever, and chills. She states she "just feels very tired." PMD: Clinic Past Medical History Reviewed: Historical Data, Nursing Documentation, Vital Signs Vital Signs: Last Vital Signs Temp 97.6 F 06/30/18 17:46 Pulse 69 06/30/18 17:46 Resp 18 06/30/18 17:46 BP 134/63 06/30/18 17:46 Pulse Ox 96 06/30/18 17:46 ABENA Report Viewed: Yes - Medical History PMH: Arthritis, Back Problems, Diabetes (type II), Gastritis, HTN, Hypercholesterolemia, Hyperlipidemia, Osteoporosis, Chronic Pain (back) Denies: Hepatitis, HIV, Chronic Kidney Disease, Seizures, Sexually Transmitted Disease - Surgical History Surgical History: Endoscopy, (x3) - Family History Family History: States: Unknown Family Hx - Social History Current smoker - smoking cessation education provided: No Alcohol: None Drugs: Denies - Home Medications Home Medications: Ambulatory Orders Medication Instructions Recorded RX: Valsartan/Hydrochlorothiazide 1 tab PO DAILY 10/17/14 [Valsartan-Hctz 160-12.5 mg Tab] RX: metFORMIN [glucOPHAGE] 500 mg PO BID 02/28/16 RX: Cholecalciferol (Vitamin D3) 2,000 unit PO DAILY 06/19/18 [Vitamin D3] RX: Meclizine [Meclizine*] 25 mg PO Q8 PRN 06/19/18 RX: Fluconazole 100 mg PO DAILY #14 tablet 06/24/18 RX: Pantoprazole [Protonix EC Tab] 40 mg PO DAILY #14 ect 06/24/18 RX: Sucralfate [Carafate Oral Susp] 1 gm PO BID #28 udc 06/24/18 Simethicone [Mylicon Chew Tab] 80 mg PO QID #28 ctb 06/24/18 Nitrofurantoin Macrocrystals 1 cap PO BID #14 cap 06/30/18 [Macrobid] hydrOXYzine Pamoate [Vistaril] 25 mg PO HS PRN #30 cap 06/30/18 - Allergies Allergies/Adverse Reactions: Allergies Allergy/AdvReac Type Severity Reaction Status Date / Time No Known Allergies Allergy Verified 06/27/18 15:54 Review of Systems ROS Statement: Except As Marked, All Systems Reviewed And Found Negative (as per HPI) Constitutional: Positive for: Weakness (generalized). Negative for: Fever, Chills Gastrointestinal: Positive for: Other (poor appetite). Negative for: Nausea, Abdominal Pain, Diarrhea Physical Exam - Reviewed Nursing Documentation Reviewed: Yes Vital Signs Reviewed: Yes - Physical Exam Appears: Positive for: No Acute Distress (but tired appearing, somewhat sleepy) Head Exam: Positive for: ATRAUMATIC, NORMOCEPHALIC Skin: Positive for: Warm, Dry Eye Exam: Positive for: EOMI, PERRL ENT: Negative for: Pharyngeal Erythema, Tonsillar Exudate Neck: Positive for: Painless ROM, Supple Cardiovascular/Chest: Positive for: Regular Rate, Rhythm, Chest Non Tender. Negative for: Murmur Respiratory: Positive for: Normal Breath Sounds. Negative for: Respiratory Distress Gastrointestinal/Abdominal: Positive for: Soft. Negative for: Tenderness Back: Positive for: Normal Inspection. Negative for: Muscle Spasm Extremity: Positive for: Normal ROM. Negative for: Deformity Neurologic/Psych: Positive for: wine steward II-XII (intact), Oriented (x3), Mood/Affect (anxious mood and affect), Other (normal speech). Negative for: Motor/Sensory Deficits, Facial Droop - Laboratory Results Result Diagrams: 06/30/18 18:28 06/30/18 18:28 - ECG ECG: Positive for: Interpreted By Me, Viewed By Me ECG Rhythm: Positive for: Normal QRS, Normal ST Segment, Sinus Rhythm (normal at 69 bpm) O2 Sat by Pulse Oximetry: 96 (RA) Pulse Ox Interpretation: Normal Medical Decision Making Medical Decision Making: Time: 1801 Initial Impression: Generalized weakness; previous charts reviewed and patient is frequently here for nonspecific complaints such as today's visit, and is likely a mild anxiety or a chronic debilitation rather than acute pathology. Initial Plan: --Type and screen --EKG --Alcohol serum --CMP --Lact acid --Lipase --Magnesium and phosphorus --Trop I --CBC with differential --Urinalysis Labs against unremarkable except for the possible UTI. Daughters report that pt often as findings initially of UTI but cultures ultimately negative. Pt has remained stable during stay in ER and there appear to be no acute medical conditions that warrant further ER workup or hospitalization. Advised mild sedative to improve sleep and urgent followup with PMD. ---- Scribe Attestation: Documented by Zenia Liao, acting as a scribe for Anne Jackson MD. Provider Scribe Attestation: All medical record entries made by the Scribe were at my direction and personally dictated by me. I have reviewed the chart and agree that the record accurately reflects my personal performance of the history, physical exam, medical decision making, and the department course for this patient. I have also personally directed, reviewed, and agree with the discharge instructions and disposition. Disposition - Clinical Impression Clinical Impression: Weakness - Disposition Referrals: [facility] [Outside] - 07/01/18 (FOLLOW UP WITH CLINIC TOMORROW) Disposition: Routine/Home Disposition Time: 20:00 Condition: STABLE Prescriptions: hydrOXYzine Pamoate [Vistaril] 25 mg PO HS PRN #30 cap PRN Reason: itching Nitrofurantoin Macrocrystals [Macrobid] 1 cap PO BID #14 cap Instructions: Insomnia (DC), Weakness (ED) Print Language: TRISTANIAN
[2018-06-30 18:32] LABS: BASO # 0.1 K/uL (0.0-0.2); BASO % 0.6 % (0.0-2.0); EOS # 0.1 K/uL (0.0-0.7); EOS % 0.8 % (0.0-4.0); HEMOGLOBIN 13.7 g/dL (12.0-16.0); LYMPH # 2.7 K/uL (1.0-4.3); LYMPH % 23.5 % (20.0-40.0); MEAN CORPUSCULAR HGB CONC 32.2 g/dL (33.0-37.0); MEAN PLATELET VOLUME 10.5 fl (7.2-11.7); MONO # 0.9 K/uL (0.0-0.8); NEUT # 7.8 K/uL (1.8-7.0); NEUT % 67.1 % (50.0-75.0); RBC 4.89 Mil/uL (3.80-5.20); WHITE BLOOD COUNT 11.6 K/uL (4.8-10.8)
[2018-06-30 18:44] LABS: ALB/GLOB RATIO 1.3 (1.0-2.1); ALBUMIN 4.3 g/dL (3.5-5.0); BLOOD UREA NITROGEN 8 mg/dl (7-17); CALCIUM 9.7 mg/dL (8.4-10.2); GFR NON-AFRICAN AMERICAN > 60
[2018-06-30 18:45] LABS: ALT/SGPT 31 U/L (9-52); AST/SGOT 28 U/L (14-36); LIPASE 41 U/L (23-300)
[2018-06-30 19:55] LABS: SQUAMOUS EPITHIAL 2 /hpf (0-5); URINE AMORPHOUS SEDIMENT RARE /ul (<OCC); URINE BILIRUBIN NEGATIVE (NEGATIVE); URINE BLOOD SMALL (NEGATIVE); URINE CLARITY SLIGHTY-CLOUDY (Clear); URINE COLOR YELLOW (YELLOW); URINE GLUCOSE (UA) NEG (NEGATIVE); URINE LEUKOCYTE ESTERASE MOD Leu/uL (Negative); URINE PROTEIN NEGATIVE (NEGATIVE); URINE UROBILINOGEN 0.2-1.0 mg/dL (0.2-1.0)
--- NOTE | 2018-06-30 20:36 | CARD ---
APPROVED REPORT Date of service: 06/30/2018 EKG Measurement Heart [id number] <Conclusion> Normal sinus rhythm Normal ECG
[2018-06-30 21:18] VITALS: RESP 16
[2018-07-01 06:23] VITALS: BP 122/78; PULSE 82; TEMP 98.2
[2018-07-02 16:28] VITALS: O2SAT 96
== END 2018-06-30 20:50 | disposition home or self-care (01) ==
LOC: H.ER 17:23
DX: R53.1 Weakness (principal); E11.9 Type 2 diabetes mellitus without complications; E78.00 Pure hypercholesterolemia, unspecified; Z79.84 Long term (current) use of oral hypoglycemic drugs; I10 Essential (primary) hypertension; F41.9 Anxiety disorder, unspecified
CPT/HCPCS: 80053; 81003; 83605; 83690; 83735; 84100; 84484; 85025; 86850; 86900; 87086; 87181; 93005; 99285; G0480; Q0177

== ENCOUNTER 2018-07-18 10:39 | Emergency (ER) | payer MEDICARE, OTHER ==
[2018-07-18 10:40] VITALS: BMI 40.6
[2018-07-18] MEDS ORDERED: Alum-Mag Hydrox-Simethicone Susp (30 mL) PO ONE (11:14)
[2018-07-18] MEDS ORDERED: Sodium Chloride 0.9% 1,000 ML IV STA (11:17)
[2018-07-18] MEDS ORDERED: Alum-Mag Hydrox-Simethicone Susp (30 mL) ONE (11:24)
[2018-07-18 11:40] LABS: BASO # 0.1 K/uL (0.0-0.2); BASO % 0.9 % (0.0-2.0); EOS # 0.1 K/uL (0.0-0.7); HEMOGLOBIN 13.9 g/dL (12.0-16.0); LYMPH # 2.3 K/uL (1.0-4.3); LYMPH % 22.6 % (20.0-40.0); MEAN CELL VOLUME 88.1 fl (81.0-99.0); MEAN CORPUSCULAR HEMOGLOBIN 28.7 pg (27.0-31.0); MEAN CORPUSCULAR HGB CONC 32.5 g/dL (33.0-37.0); MONO # 0.7 K/uL (0.0-0.8); NEUT # 7.1 K/uL (1.8-7.0); NEUT % 68.5 % (50.0-75.0); RBC 4.86 Mil/uL (3.80-5.20); RED CELL DISTRIBUTION WIDTH 13.9 % (11.5-14.5); WHITE BLOOD COUNT 10.4 K/uL (4.8-10.8)
[2018-07-18 11:48] LABS: ALB/GLOB RATIO 1.4 (1.0-2.1); ALBUMIN 4.4 g/dL (3.5-5.0); ALT/SGPT 29 U/L (9-52); AST/SGOT 28 U/L (14-36); BILIRUBIN,DIRECT 0.2 mg/ml (0.0-0.4); BLOOD UREA NITROGEN 7 mg/dl (7-17); CALCIUM 9.6 mg/dL (8.4-10.2); GFR NON-AFRICAN AMERICAN > 60; LIPASE 36 U/L (23-300)
--- NOTE | 2018-07-18 12:06 | ED PDOC ---
HPI: Abdomen Time Seen by Provider: 07/18/18 11:07 Chief Complaint (Nursing): Abdominal Pain History Per: Patient, Family Onset/Duration Of Symptoms: Days Current Symptoms Are (Timing): Still Present Location Of Pain/Discomfort: Epigastric Additional Complaint(s): 77 year old with hx of HTN, HLD, DM presents with epigastric pain since yesterday. Family states that they believe she's suffering from side effects of "too many medications" prescribed by Dr Denny and Dr. Falcon, most recently clarithromycin and one other antibiotic. States she's also had a few episodes of watery diarrhea but no nausea, vomiting, fevers. Family states that she has presented like this recently to the ER and usually responds well to IV fluids and GI cocktail. PMD: Dr. Denny GI: Dr. Falcon Past Medical History Reviewed: Historical Data, Nursing Documentation, Vital Signs - Medical History PMH: Arthritis, Back Problems, Diabetes (type II), Gastritis, HTN, Hypercholesterolemia, Hyperlipidemia, Osteoporosis, Chronic Pain (back) Denies: Hepatitis, HIV, Chronic Kidney Disease, Seizures, Sexually Transmitted Disease - Surgical History Surgical History: Endoscopy, (x3) - Family History Family History: States: Unknown Family Hx - Home Medications Home Medications: Ambulatory Orders Medication Instructions Recorded Valsartan/Hydrochlorothiazide 1 tab PO DAILY 10/17/14 [Valsartan-Hctz 160-12.5 mg Tab] metFORMIN [glucOPHAGE] 500 mg PO BID 02/28/16 Cholecalciferol (Vitamin D3) 2,000 unit PO DAILY 06/19/18 [Vitamin D3] Meclizine [Meclizine*] 25 mg PO Q8 PRN 06/19/18 Fluconazole 100 mg PO DAILY #14 tablet 06/24/18 Pantoprazole [Protonix EC Tab] 40 mg PO DAILY #14 ect 06/24/18 Simethicone [Mylicon Chew Tab] 80 mg PO QID #28 ctb 06/24/18 Sucralfate [Carafate Oral Susp] 1 gm PO BID #28 udc 06/24/18 Nitrofurantoin Macrocrystals 1 cap PO BID #14 cap 06/30/18 [Macrobid] hydrOXYzine Pamoate [Vistaril] 25 mg PO HS PRN #30 cap 06/30/18 - Allergies Allergies/Adverse Reactions: Allergies Allergy/AdvReac Type Severity Reaction Status Date / Time No Known Allergies Allergy Verified 06/27/18 15:54 Review of Systems ROS Statement: Except As Marked, All Systems Reviewed And Found Negative Gastrointestinal: Positive for: Abdominal Pain, Diarrhea Physical Exam - Reviewed Nursing Documentation Reviewed: Yes Vital Signs Reviewed: Yes - Physical Exam Appears: Positive for: Uncomfortable (Crying) Head Exam: Positive for: ATRAUMATIC, NORMAL INSPECTION, NORMOCEPHALIC Skin: Positive for: Normal Color, Warm, DRY Eye Exam: Positive for: EOMI, Normal appearance, PERRL ENT: Positive for: Normal ENT Inspection Neck: Positive for: Normal, Painless ROM Cardiovascular/Chest: Positive for: Regular Rate, Rhythm Respiratory: Positive for: CNT, Normal Breath Sounds Gastrointestinal/Abdominal: Positive for: Soft, Tenderness (TTP in Epigastric region) Back: Positive for: Normal Inspection Extremity: Positive for: Normal ROM Neurologic/Psych: Positive for: Alert, Oriented - Laboratory Results Result Diagrams: 07/18/18 11:32 07/18/18 11:32 Lab Results: Total Bilirubin 1.3 mg/dl (0.2-1.3) 07/18/18 11:32 Direct Bilirubin 0.2 mg/ml (0.0-0.4) 07/18/18 11:32 AST 28 U/L (14-36) 07/18/18 11:32 ALT 29 U/L (9-52) 07/18/18 11:32 Alkaline Phosphatase 66 U/L (38-126) 07/18/18 11:32 Total Protein 7.5 G/DL (6.3-8.2) 07/18/18 11:32 Albumin 4.4 g/dL (3.5-5.0) 07/18/18 11:32 Globulin 3.1 gm/dL (2.2-3.9) 07/18/18 11:32 Albumin/Globulin Ratio 1.4 (1.0-2.1) 07/18/18 11:32 Lipase 36 U/L (23-300) 07/18/18 11:32 Medical Decision Making Medical Decision MakinAM Patient presenting with epigastric pain, diarrhea --Patient uncomfortable, tender in epigastric area --Chart review shows that patient has presented like this several times in the past recently --Will give IVF, PO meds, check labs, and re-eval --Current presentation likely sequelae of chronic gastritis/esophagitis 1300 Patient being endorsed from provider to Dr. Simmons. Disposition - Clinical Impression Clinical Impression: Gastritis - Patient ED Disposition Is Patient to be Admitted: Transfer of Care Discussed With Dr.: Morales Simmons III - Disposition Referrals: Irineo Falcon MD [Staff Provider] - Irineo Denny MD [Staff Provider] - Disposition: Transfer of Care Disposition Time: 13:00 Condition: GOOD Additional Instructions: Followup with clinic and Dr aFlcon for further testing and treatment. Instructions: Gastritis Forms: [facility] (Divehi)
[2018-07-18 12:09] VITALS: RESP 16
--- NOTE | 2018-07-18 13:19 | ED PDOC ---
- Laboratory Results Result Diagrams: 07/18/18 11:32 07/18/18 11:32 Lab Results: Total Bilirubin 1.3 mg/dl (0.2-1.3) 07/18/18 11:32 Direct Bilirubin 0.2 mg/ml (0.0-0.4) 07/18/18 11:32 AST 28 U/L (14-36) 07/18/18 11:32 ALT 29 U/L (9-52) 07/18/18 11:32 Alkaline Phosphatase 66 U/L (38-126) 07/18/18 11:32 Total Protein 7.5 G/DL (6.3-8.2) 07/18/18 11:32 Albumin 4.4 g/dL (3.5-5.0) 07/18/18 11:32 Globulin 3.1 gm/dL (2.2-3.9) 07/18/18 11:32 Albumin/Globulin Ratio 1.4 (1.0-2.1) 07/18/18 11:32 Lipase 36 U/L (23-300) 07/18/18 11:32 - ECG O2 Sat by Pulse Oximetry: 98 Medical Decision Making Medical Decision Making: Time: 1300 Patient is endorsed to provider from Dr. Mayer. Patient is showing signs of improvement. Pending reevaluation. labs showed mild hypokalemia, K+ replaced orally D/w Dr aFlcon GI, recommends taking medications Abx/omeprazole as Rx but needs to be in appropriate sequence. Patient improved in ED, denies complaints on re-eval 4p Rec outpt eval for anxiety also.\ --- Scribe Attestation: Documented by Aaron Hernandez, acting as a scribe for Morales Troy III, DO. Provider Scribe Attestation: All medical record entries made by the Scribe were at my direction and personally dictated by me. I have reviewed the chart and agree that the record accurately reflects my personal performance of the history, physical exam, medical decision making, and the department course for this patient. I have also personally directed, reviewed, and agree with the discharge instructions and disposition. Disposition Counseled Patient/Family Regarding: Studies Performed, Diagnosis, Need For Followup, Rx Given - Clinical Impression Clinical Impression: Gastritis - POA Present On Arrival: None - Disposition Referrals: Irineo Falcon MD [Staff Provider] - Irineo Denny MD [Staff Provider] - Disposition Time: 16:00 Condition: GOOD Additional Instructions: Followup with clinic and Dr Falcon for further testing and treatment. Instructions: Gastritis Forms: [facility] (Omani)
[2018-07-18] MEDS ORDERED: Potassium Chloride 20 mEq ER Tab PO ONE ×2 (13:33→13:41)
[2018-07-18 17:10] VITALS: BP 130/74; PULSE 70; TEMP 97.2; O2SAT 97
--- NOTE | 2018-07-18 20:16 | CARD ---
APPROVED REPORT Date of service: 07/18/2018 EKG Measurement Heart [id number] <Conclusion> Normal sinus rhythm Normal ECG
== END 2018-07-18 17:10 | disposition short-term general hospital (02) ==
LOC: H.ER 10:39
DX: K29.70 Gastritis, unspecified, without bleeding (principal); E11.9 Type 2 diabetes mellitus without complications; E78.00 Pure hypercholesterolemia, unspecified; G89.29 Other chronic pain; I10 Essential (primary) hypertension; Z79.84 Long term (current) use of oral hypoglycemic drugs; M81.0 Age-related osteoporosis without current pathological fracture
CPT/HCPCS: 80048; 80076; 82948; 83690; 85025; 93005; 99283; J7030

== ENCOUNTER 2018-07-20 08:59 | Emergency (ER) | payer MEDICARE, OTHER ==
[2018-07-20 08:59] VITALS: BMI 40.6
[2018-07-20 09:05] VITALS: PULSE 81; RESP 18; TEMP 97.6
[2018-07-20] MEDS ORDERED: Sodium Chloride 0.9% 1,000 ML IV STA (09:23)
[2018-07-20] MEDS ORDERED: Alum-Mag Hydrox-Simethicone Susp (30 mL) PO ONE (09:24)
[2018-07-20 09:48] LABS: VENOUS BLOOD GAS BASE EXCESS 5.8 mmol/L (0.0-2.0); VENOUS BLOOD GAS PCO2 55 mmHg (40-60); VENOUS BLOOD GAS PO2 26 mm/Hg (30-55); VENOUS BLOOD PH 7.38 (7.32-7.43)
[2018-07-20] MEDS ORDERED: Alum-Mag Hydrox-Simethicone Susp (30 mL) ONE (09:48)
[2018-07-20 09:51] LABS: BASO % 0.5 % (0.0-2.0); EOS # 0.1 K/uL (0.0-0.7); EOS % 1.5 % (0.0-4.0); HEMOGLOBIN 13.2 g/dL (12.0-16.0); LYMPH # 2.1 K/uL (1.0-4.3); LYMPH % 23.7 % (20.0-40.0); MEAN CELL VOLUME 88.4 fl (81.0-99.0); MEAN CORPUSCULAR HEMOGLOBIN 28.2 pg (27.0-31.0); MONO # 0.7 K/uL (0.0-0.8); MONO % 8.3 % (0.0-10.0); NEUT # 5.8 K/uL (1.8-7.0); NRBC % 0.2 % (0.0-0.0); RBC 4.67 Mil/uL (3.80-5.20); RED CELL DISTRIBUTION WIDTH 14.1 % (11.5-14.5); WHITE BLOOD COUNT 8.8 K/uL (4.8-10.8)
[2018-07-20 10:15] LABS: ALB/GLOB RATIO 1.3 (1.0-2.1); ALBUMIN 4.1 g/dL (3.5-5.0); ALT/SGPT 24 U/L (9-52); AST/SGOT 25 U/L (14-36); BLOOD UREA NITROGEN 7 mg/dl (7-17); CALCIUM 9.3 mg/dL (8.4-10.2); GFR NON-AFRICAN AMERICAN > 60; LIPASE 27 U/L (23-300)
--- NOTE | 2018-07-20 10:31 | ED PDOC ---
HPI: Abdomen Time Seen by Provider: 07/20/18 09:03 Chief Complaint (Nursing): Abdominal Pain Chief Complaint (Provider): Abdominal Pain History Per: Patient History/Exam Limitations: no limitations Onset/Duration Of Symptoms: Days (x3) Location Of Pain/Discomfort: Epigastric Associated Symptoms: denies: Fever Additional Complaint(s): 77 y/o female presents to ER for the second time in 3 days for evaluation of epigastric abdominal pain. Patient was seen here and worked up for the same epigastric pain 2 days ago and was diagnosed with gastritis most likely secondary to new oral medications. She was prescribed Maalox, Pepcid and lidocaine, discharged home and instructed to follow up with PMD. Patient reports meds at home are not alleviating symptoms and states she has not been able to eat or drink for 2 days due to pain. She reports dizziness and headache today after not eating or drinking and reports worsening of abdominal pain. Patient also states she had diarrhea in the last 2 days. She denies fever. PMD: Irineo Denny Past Medical History Reviewed: Historical Data, Nursing Documentation, Vital Signs Vital Signs: Last Vital Signs Temp 97.6 F 07/20/18 09:02 Pulse 81 07/20/18 09:02 Resp 18 07/20/18 09:02 BP 142/82 07/20/18 09:02 Pulse Ox 97 07/20/18 09:02 - Medical History PMH: Arthritis, Back Problems, Diabetes (type II), Gastritis, HTN, Hypercholesterolemia, Hyperlipidemia, Osteoporosis, Chronic Pain (back) Denies: Hepatitis, HIV, Chronic Kidney Disease, Seizures, Sexually Transmitted Disease - Surgical History Surgical History: Endoscopy, (x3) - Family History Family History: States: Unknown Family Hx - Social History Current smoker - smoking cessation education provided: No Alcohol: None Drugs: Denies - Home Medications Home Medications: Ambulatory Orders Medication Instructions Recorded RX: Valsartan/Hydrochlorothiazide 1 tab PO DAILY 10/17/14 [Valsartan-Hctz 160-12.5 mg Tab] RX: metFORMIN [glucOPHAGE] 500 mg PO BID 02/28/16 RX: Cholecalciferol (Vitamin D3) 2,000 unit PO DAILY 06/19/18 [Vitamin D3] RX: Meclizine [Meclizine*] 25 mg PO Q8 PRN 06/19/18 RX: Fluconazole 100 mg PO DAILY #14 tablet 06/24/18 RX: Pantoprazole [Protonix EC Tab] 40 mg PO DAILY #14 ect 06/24/18 RX: Sucralfate [Carafate Oral Susp] 1 gm PO BID #28 udc 06/24/18 Simethicone [Mylicon Chew Tab] 80 mg PO QID #28 ctb 06/24/18 Nitrofurantoin Macrocrystals 1 cap PO BID #14 cap 06/30/18 [Macrobid] hydrOXYzine Pamoate [Vistaril] 25 mg PO HS PRN #30 cap 06/30/18 - Allergies Allergies/Adverse Reactions: Allergies Allergy/AdvReac Type Severity Reaction Status Date / Time No Known Allergies Allergy Verified 07/20/18 09:15 Review of Systems ROS Statement: Except As Marked, All Systems Reviewed And Found Negative Constitutional: Negative for: Fever Gastrointestinal: Positive for: Abdominal Pain, Diarrhea Neurological: Positive for: Headache, Dizziness Physical Exam - Reviewed Nursing Documentation Reviewed: Yes Vital Signs Reviewed: Yes - Physical Exam Appears: Positive for: Non-toxic, No Acute Distress Head Exam: Positive for: ATRAUMATIC, NORMOCEPHALIC Skin: Positive for: Normal Color, Warm, Dry Neck: Positive for: Normal, Painless ROM, Supple Cardiovascular/Chest: Positive for: Regular Rate, Rhythm. Negative for: Murmur Respiratory: Positive for: Normal Breath Sounds. Negative for: Respiratory Distress Gastrointestinal/Abdominal: Positive for: Soft, Tenderness (epigastric) Back: Positive for: Normal Inspection. Negative for: L CVA Tenderness, R CVA Tenderness Extremity: Positive for: Normal ROM. Negative for: Pedal Edema, Deformity Neurologic/Psych: Positive for: Alert, Oriented (x3) - Laboratory Results Result Diagrams: 07/20/18 09:10 07/20/18 09:10 Lab Results: pO2 26 mm/Hg (30-55) L 07/20/18 09:40 VBG pH 7.38 (7.32-7.43) 07/20/18 09:40 VBG pCO2 55 mmHg (40-60) 07/20/18 09:40 VBG HCO3 28.1 mmol/L 07/20/18 09:40 VBG Total CO2 34.2 mmol/L (22-28) H 07/20/18 09:40 VBG O2 Sat (Calc) 52.6 % (40-65) 07/20/18 09:40 VBG Base Excess 5.8 mmol/L (0.0-2.0) H 07/20/18 09:40 VBG Potassium 3.6 mmol/L (3.6-5.2) 07/20/18 09:40 Sodium 135.0 mmol/L (132-148) 07/20/18 09:40 Chloride 100.0 mmol/L (98-107) 07/20/18 09:40 Glucose 150 mg/dL (65-105) H 07/20/18 09:40 Lactate 1.5 mmol/L (0.7-2.1) 07/20/18 09:40 FiO2 21.0 % 07/20/18 09:40 Total Bilirubin 1.1 mg/dl (0.2-1.3) 07/20/18 09:10 AST 25 U/L (14-36) 07/20/18 09:10 ALT 24 U/L (9-52) 07/20/18 09:10 Alkaline Phosphatase 57 U/L (38-126) 07/20/18 09:10 Total Protein 7.3 G/DL (6.3-8.2) 07/20/18 09:10 Albumin 4.1 g/dL (3.5-5.0) 07/20/18 09:10 Globulin 3.2 gm/dL (2.2-3.9) 07/20/18 09:10 Albumin/Globulin Ratio 1.3 (1.0-2.1) 07/20/18 09:10 Lipase 27 U/L (23-300) 07/20/18 09:10 - ECG O2 Sat by Pulse Oximetry: 97 (RA) Pulse Ox Interpretation: Normal Medical Decision Making Medical Decision Makin MDM: workup for worsening gastritis and dehydration secondary to not eating or drinking --GI cocktail --Consider CT abdomen/pelvis --Consider admission for IV rehydration --Reassess patient 1130 CXR FINDINGS: LUNGS: No active pulmonary disease. PLEURA: No significant pleural effusion identified, no pneumothorax apparent. CARDIOVASCULAR: Aortic atherosclerotic calcifications. Cardiomediastinal silhouette stably enlarged. OSSEOUS STRUCTURES: Unchanged. VISUALIZED UPPER ABDOMEN: Normal. OTHER FINDINGS: None. IMPRESSION: No active disease. 1455 CT Abdomen/Pelvis FINDINGS: LOWER THORAX: Cardiomegaly. No focal consolidation or pleural effusion. LIVER: Unremarkable. No gross lesion or ductal dilatation. GALLBLADDER AND BILE DUCTS: Cholelithiasis without gallbladder wall thickening or pericholecystic fluid. PANCREAS: Unremarkable. No gross lesion or ductal dilatation. SPLEEN: Unremarkable. ADRENALS: Unremarkable. No mass. KIDNEYS AND URETERS: Unremarkable. No hydronephrosis. No solid mass. VASCULATURE: Unremarkable. No aortic aneurysm. No aortic atherosclerotic calcification or mural plaque present. BOWEL: Colonic diverticulosis. No obstruction. No gross mural thickening. APPENDIX: Normal appendix. PERITONEUM: Unremarkable. No free fluid. No free air. LYMPH NODES: Unremarkable. No enlarged lymph nodes. BLADDER: Unremarkable. REPRODUCTIVE: Intrauterine device in place. BONES: No acute fracture. OTHER FINDINGS: None. IMPRESSION: No acute abdominal pelvic pathology. Stable findings as above. 16[address] Pt with improved symptoms. CT unremarkble. Pt tolerating PO. Pt to be discharged home and will follow up with PMD. Return parameters discussed with patient and her family. ------ --------- Scribe Attestation: Documented by Sophia Boles, acting as a scribe for Cherelle Aguilar MD. Provider Scribe Attestation: All medical record entries made by the Scribe were at my direction and personally dictated by me. I have reviewed the chart and agree that the record accurately reflects my personal performance of the history, physical exam, medical decision making, and the department course for this patient. I have also personally directed, reviewed, and agree with the discharge instructions and d isposition. Disposition - Clinical Impression Clinical Impression: Abdominal discomfort - Patient ED Disposition Is Patient to be Admitted: No - Disposition Disposition: Routine/Home Disposition Time: 16:12 Condition: IMPROVED Additional Instructions: Follow up with primary medical doctor and automotive painter helper for medication adjustments and further evaluation. Today your labs and cat scan show no abnormalities. Instructions: Nausea and Vomiting, Adult (DC), Stomach Ache and Stomach Upset Forms: [facility] (Turkish) Print Language: VINCENTIAN
[2018-07-20] MEDS ORDERED: Iohexol 240 (50 ml) PO ONE (11:23)
[2018-07-20] MEDS ORDERED: Iohexol 240 (50 ml) ONE ×2 (11:27→14:12)
--- NOTE | 2018-07-20 11:34 | RAD ---
Date of service: 07/20/2018 HISTORY: possible admission COMPARISON: Chest radiograph dated 06/11/2018. FINDINGS: LUNGS: No active pulmonary disease. PLEURA: No significant pleural effusion identified, no pneumothorax apparent. CARDIOVASCULAR: Aortic atherosclerotic calcifications. Cardiomediastinal silhouette stably enlarged. OSSEOUS STRUCTURES: Unchanged. VISUALIZED UPPER ABDOMEN: Normal. OTHER FINDINGS: None. IMPRESSION: No active disease.
[2018-07-20] MEDS ORDERED: Iohexol 300 100 ML IJ ONE (13:14)
[2018-07-20] MEDS ORDERED: Sodium Chloride 0.9% 50 ML IV ONE (13:14)
--- NOTE | 2018-07-20 14:59 | CT ---
Date of service: 07/20/2018 PROCEDURE: CT Abdomen and Pelvis with contrast HISTORY: worsened epigastric pain/vomiting COMPARISON: CT scan of the abdomen pelvis dated 06/22/2018 TECHNIQUE: Contrast dose: 98 mL Omnipaque 300 Radiation dose: Total exam DLP = 931.48 mGy-cm. This CT exam was performed using one or more of the following dose reduction techniques: Automated exposure control, adjustment of the mA and/or kV according to patient size, and/or use of iterative reconstruction technique. FINDINGS: LOWER THORAX: Cardiomegaly. No focal consolidation or pleural effusion. LIVER: Unremarkable. No gross lesion or ductal dilatation. GALLBLADDER AND BILE DUCTS: Cholelithiasis without gallbladder wall thickening or pericholecystic fluid. PANCREAS: Unremarkable. No gross lesion or ductal dilatation. SPLEEN: Unremarkable. ADRENALS: Unremarkable. No mass. KIDNEYS AND URETERS: Unremarkable. No hydronephrosis. No solid mass. VASCULATURE: Unremarkable. No aortic aneurysm. No aortic atherosclerotic calcification or mural plaque present. BOWEL: Colonic diverticulosis. No obstruction. No gross mural thickening. APPENDIX: Normal appendix. PERITONEUM: Unremarkable. No free fluid. No free air. LYMPH NODES: Unremarkable. No enlarged lymph nodes. BLADDER: Unremarkable. REPRODUCTIVE: Intrauterine device in place. BONES: No acute fracture. OTHER FINDINGS: None. IMPRESSION: No acute abdominal pelvic pathology. Stable findings as above.
[2018-07-20 17:22] VITALS: BP 135/74
--- NOTE | 2018-07-22 00:01 | CARD ---
APPROVED REPORT Date of service: 07/20/2018 EKG Measurement Heart [id number] <Conclusion> Normal sinus rhythm Normal ECG
[2018-07-22 14:14] VITALS: O2SAT 97
== END 2018-07-20 16:12 | disposition home or self-care (01) ==
LOC: H.ER 08:59
DX: R10.13 Epigastric pain (principal); E11.9 Type 2 diabetes mellitus without complications; E78.00 Pure hypercholesterolemia, unspecified; K57.30 Diverticulosis of large intestine without perforation or abscess without bleeding; K80.20 Calculus of gallbladder without cholecystitis without obstruction; Z79.84 Long term (current) use of oral hypoglycemic drugs
CPT/HCPCS: 71045; 74177; 80053; 82803; 83690; 85025; 93005; 96361; 96374; 96375; 99284; J1885; J2765; J7030; Q9966; Q9967

== ENCOUNTER 2018-07-22 15:37 | Emergency (ER) | payer MEDICARE, OTHER ==
[2018-07-22 15:38] VITALS: BMI 40.6
[2018-07-22 15:45] VITALS: RESP 18
--- NOTE | 2018-07-22 16:09 | ED PDOC ---
History of Present Illness History of Present Illness: This is 77 y/o F with PMH of HTN, gastritis, HLD and DM comes to the ER c/o 1 day hx of cough, congestion, fever and body aches. As per patient this symptoms started yesterday, reports few family member with flu positive. Patient reports heavy breathing and 4 days hx of loose BM/diarrhea. Denies any chest pain, SOB, abdominal pain or dysuria. Reports brown sputum production with coughing, no blood. Patient took tylenol at 2pm for fever. PMH: As per HPI PSH: 3x c-sections Allg: NKDA SH: Denies alcohol, smoking or drug use FH: + for hearth disease ROS: As per HPI <Mirian Dominguez - Last Filed: 07/22/18 18:10> HPI: Influenza <Mirian Dominguez - Last Filed: 07/22/18 18:10> <Anne Jackson - Last Filed: 07/22/18 22:06> Time Seen by Provider: 07/22/18 15:46 Chief Complaint: Flu-like Symptoms Past Medical History Vital Signs: Last Vital Signs Temp 98.4 F 07/22/18 15:41 Pulse 114 H 07/22/18 15:41 Resp 18 07/22/18 15:41 BP 129/62 07/22/18 15:41 Pulse Ox 99 07/22/18 15:41 - Medical History PMH: Arthritis, Back Problems, Diabetes (type II), Gastritis, HTN, Hypercholesterolemia, Hyperlipidemia, Osteoporosis, Chronic Pain (back) Denies: Hepatitis, HIV, Chronic Kidney Disease, Seizures, Sexually Transmitted Disease - Surgical History Surgical History: Endoscopy, (x3) - Family History Family History: States: Unknown Family Hx <Mirian Dominguez - Last Filed: 07/22/18 18:10> Vital Signs: Last Vital Signs Temp 99.6 F 07/22/18 17:51 Pulse 87 07/22/18 17:51 Resp 18 07/22/18 17:51 BP 137/73 07/22/18 17:51 Pulse Ox 99 07/22/18 18:10 <Anne Jackson - Last Filed: 07/22/18 22:06> - Home Medications Home Medications: Ambulatory Orders Medication Instructions Recorded RX: Valsartan/Hydrochlorothiazide 1 tab PO DAILY 10/17/14 [Valsartan-Hctz 160-12.5 mg Tab] RX: metFORMIN [glucOPHAGE] 500 mg PO BID 02/28/16 RX: Cholecalciferol (Vitamin D3) 2,000 unit PO DAILY 06/19/18 [Vitamin D3] RX: Meclizine [Meclizine*] 25 mg PO Q8 PRN 06/19/18 RX: Fluconazole 100 mg PO DAILY #14 tablet 06/24/18 RX: Pantoprazole [Protonix EC Tab] 40 mg PO DAILY #14 ect 06/24/18 RX: Sucralfate [Carafate Oral Susp] 1 gm PO BID #28 udc 06/24/18 Simethicone [Mylicon Chew Tab] 80 mg PO QID #28 ctb 06/24/18 Nitrofurantoin Macrocrystals 1 cap PO BID #14 cap 06/30/18 [Macrobid] hydrOXYzine Pamoate [Vistaril] 25 mg PO HS PRN #30 cap 06/30/18 Ondansetron ODT [Zofran ODT] 1 odt PO Q6 PRN #20 odt 07/22/18 Oseltamivir Cap [Tamiflu] 75 mg PO BID #10 cap 07/22/18 RX: Acetaminophen [Tylenol Extra 1,000 mg PO Q6 PRN #100 tablet 07/22/18 Strength] - Allergies Allergies/Adverse Reactions: Allergies Allergy/AdvReac Type Severity Reaction Status Date / Time No Known Allergies Allergy Verified 07/20/18 09:15 Review of Systems Constitutional: Positive for: Fever <Dominguez,Jahin - Last Filed: 07/22/18 18:10> Physical Exam - Physical Exam Appears: Positive for: Uncomfortable Head Exam: Positive for: NORMAL INSPECTION Skin: Positive for: Normal Color Eye Exam: Positive for: Normal appearance ENT: Positive for: Normal ENT Inspection. Negative for: Sinus Pain/Drainage, Pharyngeal Erythema, Tonsillar Exudate, Tonsillar Swelling Neck: Positive for: Normal, Painless ROM Cardiovascular/Chest: Positive for: Regular Rate, Rhythm, Tachycardia. Negative for: Edema, Murmur Respiratory: Positive for: Normal Breath Sounds. Negative for: Decreased Breath Sounds, Accessory Muscle Use Gastrointestinal/Abdominal: Positive for: Bowel Sounds, Tenderness (epigastric ) Back: Positive for: Normal Inspection. Negative for: L CVA Tenderness, R CVA Tenderness Extremity: Positive for: Normal ROM Neurologic/Psych: Positive for: Alert, Oriented. Negative for: Motor/Sensory Deficits <Miguel Angel Dominguezdaria - Last Filed: 07/22/18 18:10> Medical Decision Making Medical Decision Making: Flu like symptoms <Mirian Dominguez - Last Filed: 07/22/18 18:10> - Laboratory Results Result Diagrams: 07/22/18 16:25 07/22/18 16:25 - ECG O2 Sat by Pulse Oximetry: 99 - Progress ED Course And Treament: A/P: 77 y/o F with cough, congestion, fever, body aches for 2 days. Reports diarrhea and abdominal pain. - Rectal tm: Fever - CBC, CMP, Lactic acid - CXR - UA, Ucx and Bcx - IVF - Toradol, Tylenol, Oseltamavir Case Discussed with Dr. Jackson CBC: wbc 11.5 CMP normal CXR normal UA: + Leuk Patient currently Afebrile Discharge plan discussed with patient and agrees with plan ER precautions discussed Re-evaluation Time: 18:09 Condition: Improved, Improving,but remains with symptoms <AlbertoMirian - Last Filed: 07/22/18 18:10> - Laboratory Results Result Diagrams: 07/22/18 16:25 07/22/18 16:25 Lab Results: Total Bilirubin 1.1 mg/dl (0.2-1.3) 07/22/18 16:25 AST 36 U/L (14-36) D 07/22/18 16:25 ALT 37 U/L (9-52) 07/22/18 16:25 Alkaline Phosphatase 69 U/L (38-126) 07/22/18 16:25 Total Protein 7.8 G/DL (6.3-8.2) 07/22/18 16:25 Albumin 4.4 g/dL (3.5-5.0) 07/22/18 16:25 Globulin 3.4 gm/dL (2.2-3.9) 07/22/18 16:25 Albumin/Globulin Ratio 1.3 (1.0-2.1) 07/22/18 16:25 Urine Color Straw (YELLOW) 07/22/18 16:23 Urine Clarity Clear (Clear) 07/22/18 16:23 Urine pH 6.0 (5.0-8.0) 07/22/18 16:23 Ur Specific [place] 1.009 (1.003-1.030) 07/22/18 16:23 Urine Protein Negative mg/dL (NEGATIVE) 07/22/18 16:23 Urine Glucose (UA) Neg mg/dL (NEGATIVE) 07/22/18 16:23 Urine Ketones Negative mg/dL (NEGATIVE) 07/22/18 16:23 Urine Blood Small (NEGATIVE) 07/22/18 16:23 Urine Nitrate Negative (NEGATIVE) 07/22/18 16:23 Urine Bilirubin Negative (NEGATIVE) 07/22/18 16:23 Urine Urobilinogen 0.2-1.0 mg/dL (0.2-1.0) 07/22/18 16:23 Ur Leukocyte Esterase Small Krystal/uL (Negative) 07/22/18 16:23 Urine RBC (Auto) 1 /hpf (0-3) 07/22/18 16:23 Urine Microscopic WBC 2 /hpf (0-5) 07/22/18 16:23 Ur Squamous Epith Cells 2 /hpf (0-5) 07/22/18 16:23 Urine Bacteria Rare (<OCC) 07/22/18 16:23 <Anne Jackson - Last Filed: 07/22/18 22:06> Disposition - Patient ED Disposition Is Patient to be Admitted: No - Disposition Disposition: Routine/Home Disposition Time: 18:02 <Mirian Dominguez - Last Filed: 07/22/18 18:10> <Anne Jackson - Last Filed: 07/22/18 22:06> - Clinical Impression Clinical Impression: Influenza-like symptoms, Gastritis - Disposition Referrals: Irineo Denny MD [Staff Provider] - Condition: STABLE Additional Instructions: Supportive management and ER precautions discussed Follow up with PMD in 2-3 days Prescriptions: RX: Acetaminophen [Tylenol Extra Strength] 1,000 mg PO Q6 PRN #100 tablet PRN Reason: FEVER OR PAIN Ondansetron ODT [Zofran ODT] 1 odt PO Q6 PRN #20 odt PRN Reason: Nausea/Vomiting Oseltamivir Cap [Tamiflu] 75 mg PO BID #10 cap Instructions: Flu, Flu, Adult (DC) Forms: [employer] (Yakut) Print Language: VIETNAMESE Attending/Attestation - Attestation I have personally seen and examined this patient.: Yes I have fully participated in the care of the patient.: Yes I have reviewed all pertinent clinical information: Yes Notes (Text): Tachycardic and febrile with known flu exposure. No respiratory distress. Labs demonstrate no emergently significant abnormalities. Stable for dc with f/u clinic. <Anne Jackson - Last Filed: 07/22/18 22:06>
[2018-07-22] MEDS ORDERED: Sodium Chloride 0.9% 1,000 ML IV STA (16:20)
[2018-07-22 16:41] LABS: BASO # 0.1 K/uL (0.0-0.2); BASO % 0.7 % (0.0-2.0); EOS # 0.1 K/uL (0.0-0.7); EOS % 0.8 % (0.0-4.0); HEMOGLOBIN 13.3 g/dL (12.0-16.0); LYMPH # 0.4 K/uL (1.0-4.3); LYMPH % 3.8 % (20.0-40.0); MEAN CELL VOLUME 86.3 fl (81.0-99.0); MEAN CORPUSCULAR HEMOGLOBIN 28.1 pg (27.0-31.0); MEAN CORPUSCULAR HGB CONC 32.6 g/dL (33.0-37.0); MEAN PLATELET VOLUME 9.6 fl (7.2-11.7); MONO % 8.7 % (0.0-10.0); NEUT # 9.5 K/uL (1.8-7.0); PLATELET COUNT 192 K/uL (130-400); RBC 4.73 Mil/uL (3.80-5.20); RED CELL DISTRIBUTION WIDTH 13.9 % (11.5-14.5); WHITE BLOOD COUNT 11.1 K/uL (4.8-10.8)
--- NOTE | 2018-07-22 16:57 | RAD ---
Date of service: 07/22/2018 HISTORY: fever cough COMPARISON: Chest radiograph dated 07/20/2018. TECHNIQUE: Chest PA and lateral FINDINGS: LUNGS: No active pulmonary disease. PLEURA: No significant pleural effusion identified. No pneumothorax apparent. CARDIOVASCULAR: Aortic atherosclerotic calcifications. Cardiomediastinal silhouette stably enlarged. OSSEOUS STRUCTURES: Unchanged VISUALIZED UPPER ABDOMEN: Normal. OTHER FINDINGS: None. IMPRESSION: No active disease.
[2018-07-22 17:02] LABS: ALB/GLOB RATIO 1.3 (1.0-2.1); ALBUMIN 4.4 g/dL (3.5-5.0); ALT/SGPT 37 U/L (9-52); AST/SGOT 36 U/L (14-36); BLOOD UREA NITROGEN 6 mg/dl (7-17); CALCIUM 9.4 mg/dL (8.4-10.2); GFR NON-AFRICAN AMERICAN > 60
[2018-07-22 17:08] LABS: SQUAMOUS EPITHIAL 2 /hpf (0-5); URINE BACTERIA RARE (<OCC); URINE BILIRUBIN NEGATIVE (NEGATIVE); URINE BLOOD SMALL (NEGATIVE); URINE CLARITY CLEAR (Clear); URINE COLOR STRAW (YELLOW); URINE GLUCOSE (UA) NEG (NEGATIVE); URINE LEUKOCYTE ESTERASE SMALL Leu/uL (Negative); URINE PROTEIN NEGATIVE (NEGATIVE); URINE UROBILINOGEN 0.2-1.0 mg/dL (0.2-1.0)
[2018-07-22 17:52] VITALS: BP 137/73; PULSE 87; TEMP 99.6
[2018-07-22 18:10] VITALS: O2SAT 99
[2018-07-22 19:53] LABS: BANDS 1 % (0-2); EOSINOPHIL 1 % (0-7); HYPOCHROMIC SLIGHT; LYMPHOCYTE 8 % (20-50); MONOCYTE 9 % (0-10); NEUTROPHIL 81 % (42-75); PLATELET ESTIMATE NORMAL (NORMAL); TOTAL CELLS COUNTED 100; TOXIC GRANULATION PRESENT
== END 2018-07-22 18:12 | disposition home or self-care (01) ==
LOC: H.ER 15:37
DX: J11.1 Influenza due to unidentified influenza virus with other respiratory manifestations (principal); K29.70 Gastritis, unspecified, without bleeding; E11.9 Type 2 diabetes mellitus without complications; E78.00 Pure hypercholesterolemia, unspecified; G89.29 Other chronic pain; I10 Essential (primary) hypertension; M81.0 Age-related osteoporosis without current pathological fracture; Z79.84 Long term (current) use of oral hypoglycemic drugs; Z79.899 Other long term (current) drug therapy; B96.89 Other specified bacterial agents as the cause of diseases classified elsewhere
CPT/HCPCS: 71046; 80053; 81003; 82948; 83605; 85025; 87040; 87086; 96361; 96374; 99285; J1885; J7030

== ENCOUNTER 2018-07-23 09:00 | Emergency (ER) | payer MEDICARE, OTHER ==
[2018-07-23 09:00] VITALS: BMI 40.6
[2018-07-23 09:05] VITALS: O2SAT 98
[2018-07-23] MEDS ORDERED: Sodium Chloride 0.9% 1,000 ML IV STA (09:22)
--- NOTE | 2018-07-23 09:22 | ED PDOC ---
History of Present Illness History of Present Illness: This is 77 y/o F with PMH of HTN, gastritis, HLD and DM comes to the ER c/o 2 day hx of cough, congestion, fever and body aches. As per patient this symptoms started 2 days ago, reports few family member with flu positive. Patient reports heavy breathing and 5 days hx of loose BM/diarrhea. Denies any chest pain, SOB, abdominal pain or dysuria. Reports brown sputum production with coughing, no blood. Patient took tylenol at 8am for headache, temporal headache b/l. Patient was seen here in ED yesterday for the same reasons and d/c home after CBC, CMP, UA, Lactic acid, Ucx and Bcx with IVF on Zofran, Tylenol and Tamiflu. PMH: As per HPI PSH: 3x c-sections Allg: NKDA SH: Denies alcohol, smoking or drug use FH: + for hearth disease ROS: As per HPI HPI: Influenza Time Seen by Provider: 07/23/18 09:04 Chief Complaint: Fever Past Medical History Vital Signs: Last Vital Signs Temp 98.6 F 07/23/18 09:17 Pulse 84 07/23/18 09:03 Resp 20 07/23/18 09:03 BP 133/78 07/23/18 09:03 Pulse Ox 98 07/23/18 09:03 - Medical History PMH: Arthritis, Back Problems, Diabetes (type II), Gastritis, HTN, Hypercholesterolemia, Hyperlipidemia, Osteoporosis, Chronic Pain (back) Denies: Hepatitis, HIV, Chronic Kidney Disease, Seizures, Sexually Transmitted Disease - Surgical History Surgical History: Endoscopy, (x3) - Family History Family History: States: Unknown Family Hx - Home Medications Home Medications: Ambulatory Orders Medication Instructions Recorded RX: Valsartan/Hydrochlorothiazide 1 tab PO DAILY 10/17/14 [Valsartan-Hctz 160-12.5 mg Tab] RX: metFORMIN [glucOPHAGE] 500 mg PO BID 02/28/16 RX: Cholecalciferol (Vitamin D3) 2,000 unit PO DAILY 06/19/18 [Vitamin D3] RX: Meclizine [Meclizine*] 25 mg PO Q8 PRN 06/19/18 RX: Fluconazole 100 mg PO DAILY #14 tablet 06/24/18 RX: Pantoprazole [Protonix EC Tab] 40 mg PO DAILY #14 ect 06/24/18 RX: Sucralfate [Carafate Oral Susp] 1 gm PO BID #28 udc 06/24/18 Simethicone [Mylicon Chew Tab] 80 mg PO QID #28 ctb 06/24/18 Nitrofurantoin Macrocrystals 1 cap PO BID #14 cap 06/30/18 [Macrobid] hydrOXYzine Pamoate [Vistaril] 25 mg PO HS PRN #30 cap 06/30/18 Ondansetron ODT [Zofran ODT] 1 odt PO Q6 PRN #20 odt 07/22/18 Oseltamivir Cap [Tamiflu] 75 mg PO BID #10 cap 07/22/18 RX: Acetaminophen [Tylenol Extra 1,000 mg PO Q6 PRN #100 tablet 07/22/18 Strength] Benzonatate [Tessalon Perles] 100 mg PO BID PRN 5 Days sgl 07/23/18 - Allergies Allergies/Adverse Reactions: Allergies Allergy/AdvReac Type Severity Reaction Status Date / Time No Known Allergies Allergy Verified 07/20/18 09:15 Review of Systems Constitutional: Positive for: Fever, Chills. Negative for: Sweats Eyes: Negative for: Pain ENT: Negative for: Ear Pain Cardiovascular: Negative for: Chest Pain Respiratory: Positive for: Cough. Negative for: Shortness of Breath, Hemoptysis Gastrointestinal: Positive for: Nausea, Diarrhea. Negative for: Vomiting, Abdominal Pain Genitourinary Female: Negative for: Dysuria, Frequency Skin: Negative for: Rash Neurological: Positive for: Weakness. Negative for: Numbness, Confusion, Altered Mental Status Psych: Negative for: Anxiety Physical Exam - Physical Exam Appears: Positive for: Uncomfortable Head Exam: Positive for: NORMAL INSPECTION Skin: Positive for: Normal Color Eye Exam: Positive for: Normal appearance ENT: Positive for: Normal ENT Inspection Neck: Positive for: Normal, Painless ROM, Supple Cardiovascular/Chest: Positive for: Regular Rate, Rhythm. Negative for: JVD, Murmur Respiratory: Positive for: Normal Breath Sounds. Negative for: Decreased Breath Sounds, Accessory Muscle Use, Crackles, Wheezing Gastrointestinal/Abdominal: Positive for: Soft, Tenderness (epigastric ) Back: Positive for: Normal Inspection. Negative for: L CVA Tenderness, R CVA Tenderness Extremity: Positive for: Normal ROM. Negative for: Tenderness, Pedal Edema Neurologic/Psych: Positive for: Alert, certified ophthalmic assistant II-XII, Oriented. Negative for: Motor/Sensory Deficits Medical Decision Making Medical Decision Making: Flu like symptoms - Laboratory Results Result Diagrams: 07/23/18 09:27 07/23/18 09:27 - ECG O2 Sat by Pulse Oximetry: 98 - Progress ED Course And Treament: A/P: 77 y/o F with cough, congestion, headache, body aches and diarrhea. - CBC, CMP, Lipase, Trop - EKG, CXR - Pepcid - Toradol - IVF - Reglan - Reevaluation Case discussed with Dr. Sinclair CBC, CMP, Lipase and CXR reviewed: no significant abnormalities noted Case discussed with Dr. Sinclair, further care as per Dr. Sinclair (Care transfer) Re-evaluation Time: 11:50 Condition: Improving,but remains with symptoms Disposition - Clinical Impression Clinical Impression: URI (upper respiratory infection), Myalgia - Disposition Referrals: [facility] [Outside] - 07/24/18 Disposition Time: 11:45 Condition: STABLE Additional Instructions: Return if not better in 3 days. Continue current meds and tamiflu as prescribed. Prescriptions: Benzonatate [Tessalon Perles] 100 mg PO BID PRN 5 Days sgl PRN Reason: Cough Instructions: Muscle and Bone Pain (DC), Cough, Runny Nose, and the Common Cold Forms: [employer] (Nicaraguan) Print Language: PUERTO RICAN
[2018-07-23 09:53] LABS: BASO # 0.1 K/uL (0.0-0.2); BASO % 0.7 % (0.0-2.0); EOS # 0.1 K/uL (0.0-0.7); EOS % 0.9 % (0.0-4.0); HEMOGLOBIN 12.6 g/dL (12.0-16.0); LYMPH # 0.7 K/uL (1.0-4.3); LYMPH % 9.5 % (20.0-40.0); MEAN CORPUSCULAR HEMOGLOBIN 28.6 pg (27.0-31.0); MEAN CORPUSCULAR HGB CONC 32.9 g/dL (33.0-37.0); MONO % 12.7 % (0.0-10.0); NEUT # 5.7 K/uL (1.8-7.0); NEUT % 76.2 % (50.0-75.0); RBC 4.39 Mil/uL (3.80-5.20); RED CELL DISTRIBUTION WIDTH 13.8 % (11.5-14.5); WHITE BLOOD COUNT 7.5 K/uL (4.8-10.8)
[2018-07-23 10:04] LABS: ALB/GLOB RATIO 1.2 (1.0-2.1); ALBUMIN 3.9 g/dL (3.5-5.0); ALT/SGPT 31 U/L (9-52); AST/SGOT 31 U/L (14-36); BLOOD UREA NITROGEN 6 mg/dl (7-17); GFR NON-AFRICAN AMERICAN > 60; LIPASE 21 U/L (23-300)
--- NOTE | 2018-07-23 10:29 | RAD ---
Date of service: 07/23/2018 HISTORY: dyspnea COMPARISON: 07/22/2018 FINDINGS: LUNGS: No active pulmonary disease. PLEURA: No significant pleural effusion identified, no pneumothorax apparent. CARDIOVASCULAR: No aortic atherosclerotic calcification present. Normal cardiac size. No pulmonary vascular congestion. OSSEOUS STRUCTURES: No significant abnormalities. VISUALIZED UPPER ABDOMEN: Normal. OTHER FINDINGS: None. IMPRESSION: No active disease.
[2018-07-23 11:53] VITALS: BP 135/80; PULSE 75; RESP 18; TEMP 98.1
--- NOTE | 2018-07-23 19:41 | CARD ---
APPROVED REPORT Date of service: 07/23/2018 EKG Measurement Heart [id number] DC [id number] <Conclusion> Normal sinus rhythm Normal ECG
== END 2018-07-23 11:57 | disposition home or self-care (01) ==
LOC: H.ER 09:00
DX: J06.9 Acute upper respiratory infection, unspecified (principal); M79.10 Myalgia, unspecified site; E11.9 Type 2 diabetes mellitus without complications; I10 Essential (primary) hypertension; M81.0 Age-related osteoporosis without current pathological fracture; Z79.84 Long term (current) use of oral hypoglycemic drugs; G89.29 Other chronic pain
CPT/HCPCS: 71045; 80053; 83690; 84484; 85025; 93005; 96361; 96374; 96375; 99283; J1885; J2765; J7030

== ENCOUNTER 2018-07-25 11:21 | Emergency (ER) | payer MEDICARE, OTHER ==
[2018-07-25 11:25] VITALS: BMI 36.6
[2018-07-25] MEDS ORDERED: Alum-Mag Hydrox-Simethicone Susp (30 mL) PO STA (12:10)
--- NOTE | 2018-07-25 12:29 | ED PDOC ---
HPI: Abdomen Time Seen by Provider: 07/25/18 11:45 Chief Complaint (Nursing): Abdominal Pain Chief Complaint (Provider): abdominal pain History Per: Patient History/Exam Limitations: no limitations Onset/Duration Of Symptoms: Days Current Symptoms Are (Timing): Still Present Location Of Pain/Discomfort: Epigastric Associated Symptoms: denies: Fever, Chills, Nausea, Vomiting Additional Complaint(s): Lei Hong is a 77 year old female, with a past medical history of HTN and diabetes, who presents to the emergency department complaining of an epigastric pain. Patient presents for the 5th time in x1 week with the same pain. Granddaughter again present at bedside. Patient states pain started this morning and has been able to eat and drink without difficulties. Patient denies any fever, chills, nausea, vomit or other medical complaints. PMD: None provided. Past Medical History Reviewed: Historical Data, Nursing Documentation, Vital Signs Vital Signs: Last Vital Signs Temp 97.6 F 07/25/18 11:25 Pulse 74 07/25/18 11:43 Resp 17 07/25/18 11:43 BP 137/71 07/25/18 11:43 Pulse Ox 98 07/25/18 11:46 - Medical History PMH: Arthritis, Back Problems, Diabetes (type II), Gastritis, HTN, Hypercholesterolemia, Hyperlipidemia, Osteoporosis, Chronic Pain (back) Denies: Hepatitis, HIV, Chronic Kidney Disease, Seizures, Sexually Transmitted Disease - Surgical History Surgical History: Endoscopy, (x3) - Family History Family History: States: Unknown Family Hx - Social History Current smoker - smoking cessation education provided: No Alcohol: None Drugs: Denies - Immunization History Hx Tetanus Toxoid Vaccination: No Hx Influenza Vaccination: No Hx Pneumococcal Vaccination: No - Home Medications Home Medications: Ambulatory Orders Medication Instructions Recorded Valsartan/Hydrochlorothiazide 1 tab PO DAILY 10/17/14 [Valsartan-Hctz 160-12.5 mg Tab] metFORMIN [glucOPHAGE] 500 mg PO BID 02/28/16 Cholecalciferol (Vitamin D3) 2,000 unit PO DAILY 06/19/18 [Vitamin D3] Meclizine [Meclizine*] 25 mg PO Q8 PRN 06/19/18 Fluconazole 100 mg PO DAILY #14 tablet 06/24/18 Pantoprazole [Protonix EC Tab] 40 mg PO DAILY #14 ect 06/24/18 Simethicone [Mylicon Chew Tab] 80 mg PO QID #28 ctb 06/24/18 Sucralfate [Carafate Oral Susp] 1 gm PO BID #28 udc 06/24/18 Nitrofurantoin Macrocrystals 1 cap PO BID #14 cap 06/30/18 [Macrobid] hydrOXYzine Pamoate [Vistaril] 25 mg PO HS PRN #30 cap 06/30/18 Acetaminophen [Tylenol Extra 1,000 mg PO Q6 PRN #100 tablet 07/22/18 Strength] Ondansetron ODT [Zofran ODT] 1 odt PO Q6 PRN #20 odt 07/22/18 Oseltamivir Cap [Tamiflu] 75 mg PO BID #10 cap 07/22/18 Benzonatate [Tessalon Perles] 100 mg PO BID PRN 5 Days sgl 07/23/18 Nitrofurantoin Macrocrystals 100 mg PO BID #14 cap 07/25/18 [Macrobid] traZODone [Desyrel] 25 mg PO HS PRN #14 tab 07/25/18 - Allergies Allergies/Adverse Reactions: Allergies Allergy/AdvReac Type Severity Reaction Status Date / Time No Known Allergies Allergy Verified 07/20/18 09:15 Review of Systems ROS Statement: Except As Marked, All Systems Reviewed And Found Negative Constitutional: Negative for: Fever, Chills Gastrointestinal: Positive for: Abdominal Pain (epigastric). Negative for: Nausea, Vomiting Physical Exam - Reviewed Nursing Documentation Reviewed: Yes Vital Signs Reviewed: Yes - Physical Exam Appears: Positive for: No Acute Distress Head Exam: Positive for: ATRAUMATIC, NORMAL INSPECTION, NORMOCEPHALIC Skin: Positive for: Normal Color, Warm, Dry Eye Exam: Positive for: Normal appearance, EOMI, PERRL Neck: Positive for: Normal, Painless ROM, Supple Cardiovascular/Chest: Positive for: Regular Rate, Rhythm. Negative for: Murmur Respiratory: Positive for: Normal Breath Sounds. Negative for: Respiratory Distress Gastrointestinal/Abdominal: Positive for: Normal Exam, Soft. Negative for: Tenderness, Mass, Guarding, Rebound Back: Positive for: Normal Inspection. Negative for: L CVA Tenderness, R CVA Tenderness, Vertebral Tenderness Extremity: Positive for: Normal ROM (upper and lower extremities). Negative for: Deformity, Swelling Neurologic/Psych: Positive for: Alert, Oriented. Negative for: Motor/Sensory Deficits - ECG O2 Sat by Pulse Oximetry: 98 (RA) Pulse Ox Interpretation: Normal Medical Decision Making Medical Decision Making: Time: 11:45 Initial Impression: Granddaughter agrees that patient is not better or worst and that status has not changed. Will give GI cocktail. Patient and granddaughter both agree to crisis evaluation for further work up to determine if there are psychiatric factors involved in frequent visits w/o any findings of labs, CT, physical or other abnormalities. Initial Plan: --Crisis evaluation as ordered --Maalox Plus 30 ml PO --Pepcid 20 mg PO --Lidocaine 2% Viscous 15 ml PO --Reevaluation 13:30 Pt and grand-daughter initially agreed to crisis evaluation. Pt's daughter now in the room stating they refuse crisis evaluation and are demanding admission. Have placed phone calls out to PMD Dr. Irineo Denny and [employer] Super[employer] Dr. Falcon for collateral information and to determine what workup and treatment have recently been initiated for the patient. Vitals have remained stable. Pt was requesting food but is now stating she does not want to eat. 14:[address] Connolly who states no abnormalities were previously found. Patient followed up with him as an outpatient, however from his treatment standpoint he has no reason to admit the patient. 14:36 Spoke with resident who will touch base with rest of doctors concept artist to discuss change of treatment for gastritis and esophagitis. When evaluating bedside with resident and daughter patient now appears tearful, refusing to eat, and very emotional. Spoke to daughter alone with residents and mentioned to daughter how patient was laughing, joking, and comfortable appearing when granddaughter was in the room but now is tearful and in pain when daughter is present. Discussed possibility of psychosomatic symptoms also explained psychosomatic symptoms is a diagnosis of exclusion. Will continue to arrange outpatient follow up. Daughter states that she has recently noticed that symptoms are always worse/exaggerated when she is around patient. Will continue to follow patient and collaborate with Dr. Falcon and family practice residents. Basic labs ordered: * CMP * CBC w/ diff 17:01 Patient was seen and evaluated by crisis who agree there is underlying anxiety. Scheduled patient for outpatient follow up with Dr. Mackenzie, psychiatry, who also recommends 25 mg PRN of Trazodone at night which is to be prescribed for the patient. Patient is requesting soup at this time with improvement of pain. Patient is to be discharged with referral to outpatient clinic and gastroenterology. Scribe Attestation: Documented by Khurram Almeida and Daryl Lr, acting as a scribe for Cherelle Aguilar MD Provider Scribe Attestation: All medical record entries made by the Scribe were at my direction and personally dictated by me. I have reviewed the chart and agree that the record accurately reflects my personal performance of the history, physical exam, medical decision making, and the department course for this patient. I have also personally directed, reviewed, and agree with the discharge instructions and disposition. Disposition - Clinical Impression Clinical Impression: Abdominal tenderness, Epigastric abdominal pain, Acute insomnia - Patient ED Disposition Is Patient to be Admitted: No - Disposition Referrals: [facility] [Outside] Irineo Falcon MD [Staff Provider] - Disposition: Routine/Home Disposition Time: 17:01 Condition: IMPROVED Additional Instructions: Follow up with primary medical clinic, gastroenterology, and psychiatry. Take Trazadone only at night for difficulty sleeping. Prescriptions: traZODone [Desyrel] 25 mg PO HS PRN #14 tab PRN Reason: Insomnia Instructions: Acid Reflux (Gastroesophageal Reflux Disease), Adult (DC), Insomnia (DC) Forms: [employer] (Nigerian) Print Language: NOR[place] KOREAN
[2018-07-25] MEDS ORDERED: Alum-Mag Hydrox-Simethicone Susp (30 mL) ONE (13:05)
[2018-07-25 16:57] VITALS: TEMP 98.4
[2018-07-25 17:11] LABS: BASO % 0.5 % (0.0-2.0); EOS % 0.4 % (0.0-4.0); HEMOGLOBIN 13.6 g/dL (12.0-16.0); LYMPH # 1.6 K/uL (1.0-4.3); LYMPH % 34.1 % (20.0-40.0); MEAN CELL VOLUME 86.8 fl (81.0-99.0); MEAN CORPUSCULAR HEMOGLOBIN 27.9 pg (27.0-31.0); MEAN CORPUSCULAR HGB CONC 32.2 g/dL (33.0-37.0); MEAN PLATELET VOLUME 10.2 fl (7.2-11.7); MONO # 0.5 K/uL (0.0-0.8); MONO % 10.4 % (0.0-10.0); NEUT # 2.6 K/uL (1.8-7.0); NEUT % 54.6 % (50.0-75.0); NRBC % 0.1 % (0.0-0.0); RBC 4.88 Mil/uL (3.80-5.20); RED CELL DISTRIBUTION WIDTH 14.5 % (11.5-14.5); WHITE BLOOD COUNT 4.8 K/uL (4.8-10.8)
[2018-07-25 17:24] LABS: ALB/GLOB RATIO 1.3 (1.0-2.1); ALBUMIN 4.1 g/dL (3.5-5.0); ALT/SGPT 31 U/L (9-52); AST/SGOT 37 U/L (14-36); BLOOD UREA NITROGEN 5 mg/dl (7-17); CALCIUM 9.2 mg/dL (8.4-10.2); GFR NON-AFRICAN AMERICAN > 60
[2018-07-25 18:19] VITALS: BP 125/59; PULSE 71; RESP 18; O2SAT 96
== END 2018-07-25 18:19 | disposition home or self-care (01) ==
LOC: H.ER 11:21
DX: R10.13 Epigastric pain (principal); G47.00 Insomnia, unspecified; F41.9 Anxiety disorder, unspecified; E11.9 Type 2 diabetes mellitus without complications; E78.00 Pure hypercholesterolemia, unspecified; G89.29 Other chronic pain; I10 Essential (primary) hypertension; Z79.84 Long term (current) use of oral hypoglycemic drugs; K29.70 Gastritis, unspecified, without bleeding

== ENCOUNTER 2018-08-02 17:39 | Emergency (ER) | payer MEDICARE, OTHER ==
[2018-08-02 17:39] VITALS: BMI 36.6
[2018-08-02 17:46] VITALS: BP 129/83; PULSE 85; RESP 18; TEMP 97.5; O2SAT 100
--- NOTE | 2018-08-02 19:09 | ED PDOC ---
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 She is also reporting abdominal pain, but notes it is chronic, as she has been seen here multiple times for the same symptoms and diagnosed with gastritis. Since her diagnosis, family is reporting she has had trouble sleeping and severe anxiety. Of note, patient was recently admitted and discharged from [facility] for the same symptoms associated with a UTI. PMD: [facility] [place] Past Medical History Reviewed: Historical Data, Nursing Documentation, Vital Signs Vital Signs: Last Vital Signs Temp 97.5 F L 08/02/18 17:43 Pulse 85 08/02/18 17:43 Resp 18 08/02/18 17:43 BP 129/83 08/02/18 17:43 Pulse Ox 100 08/02/18 17:43 - Medical History PMH: Arthritis, Back Problems, Diabetes (type II), Gastritis, HTN, Hypercholesterolemia, Hyperlipidemia, Osteoporosis, Chronic Pain (back) Denies: Hepatitis, HIV, Chronic Kidney Disease, Seizures, Sexually Transmitted Disease - Surgical History Surgical History: Endoscopy, (x3) - Family History Family History: States: Unknown Family Hx - Living Arrangements Living Arrangements: With Family - Social History Current smoker - smoking cessation education provided: No Alcohol: None Drugs: Denies - Immunization History Hx Tetanus Toxoid Vaccination: No Hx Influenza Vaccination: No Hx Pneumococcal Vaccination: No - Home Medications Home Medications: Ambulatory Orders Medication Instructions Recorded RX: Valsartan/Hydrochlorothiazide 1 tab PO DAILY 10/17/14 [Valsartan-Hctz 160-12.5 mg Tab] Simethicone [Mylicon Chew Tab] 80 mg PO QID #28 ctb 06/24/18 Bismuth Subsalicylate [Pepto 262 mg PO QID #112 ctb 07/30/18 Bismol] RX: Doxycycline Hyclate 100 mg PO BID #28 capsule 07/30/18 RX: Losartan [Cozaar] 100 mg PO DAILY tab 07/30/18 RX: Pantoprazole [Protonix EC Tab] 40 mg PO BID #28 ect 07/30/18 RX: metroNIDAZOLE [Flagyl] 250 mg PO QID #56 tab 07/30/18 RX: Losartan [Cozaar] 100 mg PO DAILY #30 tab 07/31/18 RX: traZODone [Desyrel] 50 mg PO HS #7 tab 08/02/18 - Allergies Allergies/Adverse Reactions: Allergies Allergy/AdvReac Type Severity Reaction Status Date / Time No Known Allergies Allergy Verified 08/02/18 17:43 Review of Systems ROS Statement: Except As Marked, All Systems Reviewed And Found Negative (as per HPI) Constitutional: Positive for: Weakness, Other (difficulty sleeping) Gastrointestinal: Positive for: Abdominal Pain (chronic) Psych: Positive for: Anxiety Physical Exam - Reviewed Nursing Documentation Reviewed: Yes Vital Signs Reviewed: Yes - Physical Exam Appears: Positive for: In Acute Distress (acute psychiatric distress) Head Exam: Positive for: ATRAUMATIC, NORMOCEPHALIC Skin: Positive for: Warm, Dry Eye Exam: Positive for: EOMI, PERRL ENT: Positive for: Other (tacky mucous membranes) Neck: Positive for: Painless ROM, Supple Cardiovascular/Chest: Positive for: Regular Rate, Rhythm. Negative for: Murmur Respiratory: Positive for: Normal Breath Sounds. Negative for: Respiratory Distress Gastrointestinal/Abdominal: Positive for: Soft, Tenderness (mild tenderness to palpation diffusely). Negative for: Mass, Distended, Guarding, Rebound Back: Positive for: Normal Inspection, Decreased ROM Extremity: Positive for: Normal ROM. Negative for: Deformity Lymphatic: Negative for: Adenopathy Neurologic/Psych: Positive for: Alert, Oriented (x3), Mood/Affect (anxious). Negative for: Motor/Sensory Deficits - Laboratory Results Result Diagrams: 08/02/18 19:09 08/02/18 19:09 - ECG O2 Sat by Pulse Oximetry: 100 (RA) Pulse Ox Interpretation: Normal Medical Decision Making Medical Decision Making: Time: 1843 Initial Impression: recurrent anxiety DDx include but not limited to: electrolyte abnormality, dehydration, UTI Initial Plan: --CMP --Magnesium --Phosphorus --TSH --CBC with differential --Urinalysis --Crisis eval Lab unremarkable Evaluated by CW who dw Psych oncall. Pt to restart trazadone. Scribe Attestation: Documented by Zenia Liao acting as a scribe for Anne Jackson MD. Provider Scribe Attestation: All medical record entries made by the Scribe were at my direction and personally dictated by me. I have reviewed the chart and agree that the record accurately reflects my personal performance of the history, physical exam, medical decision making, and the department course for this patient. I have also personally directed, reviewed, and agree with the discharge instructions and disposition. Disposition - Clinical Impression Clinical Impression: Anxiety Counseled Patient/Family Regarding: Studies Performed, Diagnosis, Need For Followup, Rx Given - Disposition Disposition: Routine/Home Disposition Time: 23:00 Condition: STABLE Additional Instructions: FOLLOW UP WITH MENTAL HEALTH SCHEDULED TAKE ALL YOUR MEDICATIONS PRESCRIBED Prescriptions: RX: traZODone [Desyrel] 50 mg PO HS #7 tab Instructions: Anxiety, Adult (DC)
[2018-08-02 19:13] LABS: BASO # 0.1 K/uL (0.0-0.2); BASO % 1.2 % (0.0-2.0); EOS # 0.1 K/uL (0.0-0.7); EOS % 0.8 % (0.0-4.0); HEMOGLOBIN 12.8 g/dL (12.0-16.0); LYMPH # 2.6 K/uL (1.0-4.3); LYMPH % 21.2 % (20.0-40.0); MEAN CELL VOLUME 84.8 fl (81.0-99.0); MEAN CORPUSCULAR HEMOGLOBIN 28.2 pg (27.0-31.0); MEAN CORPUSCULAR HGB CONC 33.2 g/dL (33.0-37.0); MEAN PLATELET VOLUME 9.6 fl (7.2-11.7); MONO # 1.4 K/uL (0.0-0.8); MONO % 11.9 % (0.0-10.0); NEUT # 7.8 K/uL (1.8-7.0); NEUT % 64.9 % (50.0-75.0); NRBC % 0.2 % (0.0-0.0); RBC 4.55 Mil/uL (3.80-5.20); RED CELL DISTRIBUTION WIDTH 14.7 % (11.5-14.5)
[2018-08-02 19:20] LABS: WHITE BLOOD COUNT 12.1 K/uL (4.8-10.8)
[2018-08-02 19:40] LABS: ALB/GLOB RATIO 1.1 (1.0-2.1); ALBUMIN 3.9 g/dL (3.5-5.0); ALT/SGPT 47 U/L (9-52); AST/SGOT 65 U/L (14-36); BLOOD UREA NITROGEN 4 mg/dl (7-17); CALCIUM 9.4 mg/dL (8.4-10.2); GFR NON-AFRICAN AMERICAN > 60
[2018-08-02 22:51] LABS: SQUAMOUS EPITHIAL 3 /hpf (0-5); URINE BACTERIA RARE (<OCC); URINE BILIRUBIN NEGATIVE (NEGATIVE); URINE BLOOD NEGATIVE (NEGATIVE); URINE CLARITY CLEAR (Clear); URINE COLOR YELLOW (YELLOW); URINE GLUCOSE (UA) NEG (NEGATIVE); URINE HYALINE CAST 0-2 /hpf (0-2); URINE LEUKOCYTE ESTERASE TRACE Leu/uL (Negative); URINE PROTEIN NEGATIVE (NEGATIVE); URINE UROBILINOGEN 0.2-1.0 mg/dL (0.2-1.0)
[2018-08-02] MEDS ORDERED: Alum-Mag Hydrox-Simethicone Susp (30 mL) PO STA (23:10)
[2018-08-02] MEDS ORDERED: Alum-Mag Hydrox-Simethicone Susp (30 mL) ONE (23:13)
== END 2018-08-02 23:27 | disposition home or self-care (01) ==
LOC: H.ER 17:39
DX: F41.9 Anxiety disorder, unspecified (principal); E11.9 Type 2 diabetes mellitus without complications; G89.29 Other chronic pain; I10 Essential (primary) hypertension; M81.0 Age-related osteoporosis without current pathological fracture

== ENCOUNTER 2018-08-04 20:22 | Observation (INO) | payer MEDICARE, OTHER ==
[2018-08-04] MEDS ORDERED: Sodium Chloride 0.9% 500 ML IV ONE (20:47)
--- NOTE | 2018-08-04 20:48 | ED PDOC ---
HPI: General Adult Time Seen by Provider: 08/04/18 20:48 Chief Complaint (Nursing): Weakness/Neurological Deficit Chief Complaint (Provider): weakness/altered mental status History Per: Family (77 y/o female h/o Diabetes here with son for evaluation altered mental status ongoing and worsening today associated with hallucinations and decreased intake. Patient now states she feels weak today generalized as well. Denies any chest pain. Has had ongoing abdominal pain which was diagnosed as GERD not having today. Family has appt with mental health services 08/08/2018 10:20am.) Past Medical History Reviewed: Historical Data, Nursing Documentation, Vital Signs Vital Signs: Last Vital Signs Temp 97.2 F L 08/04/18 20:25 Pulse 88 08/04/18 20:25 Resp 16 08/04/18 20:25 BP 142/79 08/04/18 20:25 Pulse Ox 99 08/04/18 20:25 - Medical History PMH: Arthritis, Back Problems, Diabetes (type II), Gastritis, HTN, Hyperch olesterolemia, Hyperlipidemia, Osteoporosis, Chronic Pain (back) Denies: Hepatitis, HIV, Chronic Kidney Disease, Seizures, Sexually Transmitted Disease - Surgical History Surgical History: Endoscopy, (x3) - Family History Family History: States: Unknown Family Hx - Immunization History Hx Tetanus Toxoid Vaccination: No Hx Influenza Vaccination: No Hx Pneumococcal Vaccination: No - Home Medications Home Medications: Ambulatory Orders Medication Instructions Recorded Valsartan/Hydrochlorothiazide 1 tab PO DAILY 10/17/14 [Valsartan-Hctz 160-12.5 mg Tab] Simethicone [Mylicon Chew Tab] 80 mg PO QID #28 ctb 06/24/18 Bismuth Subsalicylate [Pepto 262 mg PO QID #112 ctb 07/30/18 Bismol] Doxycycline Hyclate 100 mg PO BID #28 capsule 07/30/18 Losartan [Cozaar] 100 mg PO DAILY tab 07/30/18 Pantoprazole [Protonix EC Tab] 40 mg PO BID #28 ect 07/30/18 metroNIDAZOLE [Flagyl] 250 mg PO QID #56 tab 07/30/18 Losartan [Cozaar] 100 mg PO DAILY #30 tab 07/31/18 traZODone [Desyrel] 50 mg PO HS #7 tab 08/02/18 - Allergies Allergies/Adverse Reactions: Allergies Allergy/AdvReac Type Severity Reaction Status Date / Time No Known Allergies Allergy Verified 08/02/18 17:43 Review of Systems ROS Statement: Except As Marked, All Systems Reviewed And Found Negative Neurological: Positive for: Confusion, Altered Mental Status Physical Exam - Reviewed Nursing Documentation Reviewed: Yes Vital Signs Reviewed: Yes - Physical Exam Appears: Positive for: Well, Non-toxic, No Acute Distress Head Exam: Positive for: ATRAUMATIC, NORMAL INSPECTION, NORMOCEPHALIC Skin: Positive for: Normal Color, Warm, DRY Eye Exam: Positive for: EOMI, Normal appearance, PERRL ENT: Positive for: Normal ENT Inspection Neck: Positive for: Normal, Painless ROM Cardiovascular/Chest: Positive for: Regular Rate, Rhythm Respiratory: Positive for: CNT, Normal Breath Sounds Gastrointestinal/Abdominal: Positive for: Normal Exam, Soft Back: Positive for: Normal Inspection Extremity: Positive for: Normal ROM Neurologic/Psych: Positive for: Alert, Oriented - Laboratory Results Result Diagrams: 08/04/18 21:25 08/04/18 21:25 - ECG O2 Sat by Pulse Oximetry: 99 - Progress ED Course And Treament: cxr: no acute infiltrate NS 500ml iv bolus x a dose Potassium noted low. KDUR 60meq x 1 dose ordered. d/w DR. Robison for admission. Patient has new hallucinations and altered mentation as per family. We will admit for observation of hypokalemia/weakness. Medical Decision Making Medical Decision Making: Time: 2218 CT Head FINDINGS: BRAIN Chronic periventricular and subcortical microvascular disease is seen. VENTRICLES: There is generalized parenchymal atrophy noted as demonstrated by symmetrical dilatation of ventricles and sulci. ORBITS: The orbits are unremarkable. SINUSES AND MASTOIDS: Bilateral ethmoid and sphenoid sinusitis. BONES: No fracture. SOFT TISSUES: Unremarkable. MISCELLANEOUS: No acute intracranial pathology. IMPRESSION: 1. There is generalized parenchymal atrophy noted as demonstrated by symmetrical dilatation of ventricles and sulci. 2. Chronic periventricular and subcortical microvascular disease is seen. 3. Bilateral ethmoid and sphenoid sinusitis. 4. No acute intracranial pathology. Disposition - Clinical Impression Clinical Impression: Hypokalemia, Altered mental status - Disposition Disposition Time: 22:57 Condition: FAIR - Pt Status Changed To: Hospital Disposition Of: Observation
[2018-08-04 21:15] LABS: VENOUS BLOOD GAS BASE EXCESS 6.9 mmol/L (0.0-2.0); VENOUS BLOOD GAS PCO2 49 mmHg (40-60); VENOUS BLOOD GAS PO2 33 mm/Hg (30-55); VENOUS BLOOD PH 7.43 (7.32-7.43)
[2018-08-04 21:40] LABS: BASO # 0.1 K/uL (0.0-0.2); BASO % 0.6 % (0.0-2.0); EOS # 0.1 K/uL (0.0-0.7); EOS % 0.9 % (0.0-4.0); HEMOGLOBIN 13.1 g/dL (12.0-16.0); LYMPH % 25.1 % (20.0-40.0); MEAN CELL VOLUME 85.6 fl (81.0-99.0); MEAN CORPUSCULAR HEMOGLOBIN 27.4 pg (27.0-31.0); MEAN PLATELET VOLUME 9.8 fl (7.2-11.7); MONO # 1.3 K/uL (0.0-0.8); MONO % 11.1 % (0.0-10.0); NEUT # 7.3 K/uL (1.8-7.0); NEUT % 62.3 % (50.0-75.0); RBC 4.78 Mil/uL (3.80-5.20); RED CELL DISTRIBUTION WIDTH 14.7 % (11.5-14.5); WHITE BLOOD COUNT 11.8 K/uL (4.8-10.8)
[2018-08-04 21:52] LABS: ALB/GLOB RATIO 1.1 (1.0-2.1); ALBUMIN 3.8 g/dL (3.5-5.0); ALT/SGPT 44 U/L (9-52); AST/SGOT 44 U/L (14-36); BLOOD UREA NITROGEN 7 mg/dl (7-17); CALCIUM 9.3 mg/dL (8.4-10.2); GFR NON-AFRICAN AMERICAN > 60
[2018-08-04] MEDS ORDERED: Potassium Chloride 20 mEq ER Tab PO STA (22:07)
[2018-08-04] MEDS ORDERED: Potassium Chloride 20 mEq ER Tab PO ONE (22:59)
[2018-08-04 23:15] LABS: SQUAMOUS EPITHIAL < 1 /hpf (0-5); URINE BILIRUBIN NEGATIVE (NEGATIVE); URINE BLOOD NEGATIVE (NEGATIVE); URINE CLARITY CLEAR (Clear); URINE COLOR YELLOW (YELLOW); URINE GLUCOSE (UA) NEG (NEGATIVE); URINE LEUKOCYTE ESTERASE NEG Leu/uL (Negative); URINE PROTEIN NEGATIVE (NEGATIVE); URINE UROBILINOGEN 0.2-1.0 mg/dL (0.2-1.0)
[2018-08-04 23:37] LABS: BARBITURATES, UR NEGATIVE (NEGATIVE); BENZODIAZEPINES, UR NEGATIVE (NEGATIVE); OPIATES, UR NEGATIVE (NEGATIVE); PHENCYCLIDINE, UR NEGATIVE (NEGATIVE)
[2018-08-05 00:16] VITALS: BMI 32.3
--- NOTE | 2018-08-05 00:53 | CP.PCM.HP ---
History of Present Illness - History of Present Illness History of Present Illness: 77 yo F with history hypertension, type 2 diabetes mellitus, chronic gastritis, chronic abdominal pain, anxiety recently started on trazodone, admitted due to hypokalemia and new onset hallucinations/AMS as reported by family. Patient was admitted due to abdominal pain in June 2018, had EGD 06/24/2018 which showed esophagitis, hiatal hernia, non-erosive gastritis and H pylori infection. Since then, she has visited the ER 8 times: 06/27, 06/30, 07/18, 07/20, 07/22, 07/23, 07/25 at [facility] with similar symptoms (vague abdominal pain, unable to eat (seemingly afraid to), unable to sleep, feeling weak), and 07/28 at [facility]. She was admitted at [facility] on 07/28, for flu-like symptoms (flu swab neg), suspected bronchitis (started on doxy); was discharged with prescriptions for Doxycycline 100mg PO BID x 14 days, PeptoBismol, Metronidazole 250 QID x 14 days, Protonix, Losartan 100mg PO daily. As per telephone encounter in [facility] on 07/25, patient has been prescribed triple therapy, however was unsure how to take. She has had appointments scheduled at [facility] on 07/12 and 08/02, but missed them. At ED visit on 07/25, she was evaluated by drum worker -- deemed to have underlying anxiety, Dr. Ivey recommended 25 mg trazodone. She has an intake scheduled with mental health services on 08/08. Today, she was brought in by her grandson who states that they have been going to multiple hospitals and "can't get an answer" for her abdominal pain and decreased PO intake. He states that maybe she is scared to eat after getting diagnosis of gastritis. He states that she has been taking trazodone, but has not been acting like herself; has been saying other people are her family members and sometimes does not know where she is, asks "where am I?" In ED, pt c/o vague symptoms, stating "I just don't feel good," and nodded when asked if she was weak. Denies chest pain, shortness of breath, nausea, vomiting, dysuria. Patient is poor historian, though is AAOx3. Found to have K 3.2 in ED; 60 mEq PO K ordered. TSH 1.8. Troponin neg. Head CT: IMPRESSION: 1. There is generalized parenchymal atrophy noted as demonstrated by symmetrical dilatation of ventricles and sulci. 2. Chronic periventricular and subcortical microvascular disease is seen. 3. Bilateral ethmoid and sphenoid sinusitis. 4. No acute intracranial pathology. Blood and urine cultures ordered PMD: [facility] GI: Dr. Falcon PMH: arthritis, NIDDM2, back problems, HTN, hypercholesterolemia, osteoporosis, gastritis PSH: (x3) Meds: Metformin, Losartan, Protonix, Doxycycline, Metronidazole Social hx: lives with daughter Allx: NKDA Present on Admission - Present on Admission Any Indicators Present on Admission: No Review of Systems - Review of Systems Review of Systems: as per hpi Past Patient History - Infectious Disease Hx of Infectious Diseases: None - Past Medical History & Family History Past Medical History?: Yes - Past Social History Smoking Status: Never Smoked - CARDIAC Hx Hypercholesterolemia: Yes Hx Hypertension: Yes - PULMONARY Hx Tuberculosis: No - NEUROLOGICAL Hx Seizures: No - HEENT Hx HEENT Problems: No - RENAL Hx Chronic Kidney Disease: No - ENDOCRINE/METABOLIC Hx Diabetes Mellitus Type 2: Yes (CURRENTLY NOT ON MEDICATION.) - HEMATOLOGICAL/ONCOLOGICAL Hx Human Immunodeficiency Virus (HIV): No - INTEGUMENTARY Hx Dermatological Problems: No - MUSCULOSKELETAL/RHEUMATOLOGICAL Hx Arthritis: Yes Hx Osteoporosis: Yes - GASTROINTESTINAL Hx Gastritis: Yes - GENITOURINARY/GYNECOLOGICAL Hx Sexually Transmitted Disorders: No - PSYCHIATRIC Hx Psychophysiologic Disorder: No Hx Emotional Abuse: No Hx Physical Abuse: No Hx Substance Use: No - SURGICAL HISTORY Hx Surgeries: Yes - ANESTHESIA Hx Anesthesia: Yes Hx Anesthesia Reactions: No Hx Malignant Hyperthermia: No Meds Allergies/Adverse Reactions: Allergies Allergy/AdvReac Type Severity Reaction Status Date / Time No Known Allergies Allergy Verified 08/02/18 17:43 Physical Exam - Constitutional Appears: Non-toxic - Head Exam Head Exam: NORMAL INSPECTION - Eye Exam Eye Exam: Normal appearance - ENT Exam ENT Exam: Mucous Membranes Moist - Neck Exam Neck exam: Positive for: Full Rom - Respiratory Exam Respiratory Exam: Clear to Auscultation Bilateral, NORMAL BREATHING PATTERN. absent: Respiratory Distress - Cardiovascular Exam Cardiovascular Exam: REGULAR RHYTHM, +S1, +S2 - GI/Abdominal Exam GI & Abdominal Exam: Normal Bowel Sounds, Soft. absent: Distended, Rigid, Tenderness - Extremities Exam Extremities exam: Positive for: normal inspection. Negative for: calf tenderness, pedal edema - Neurological Exam Neurological exam: Alert Additional comments: patient is able to say where she is (though states [employer]), that it is August, and that the man next to her is her grandson, however she does not give appropriate answers when asked to explain symptoms, offering only "I don't feel good" - Skin Skin Exam: Dry, Warm Results - Vital Signs Recent Vital Signs: Last Vital Signs Temp 97.2 F L 08/04/18 20:25 Pulse 88 08/04/18 20:25 Resp 16 08/04/18 20:25 BP 142/79 08/04/18 20:25 Pulse Ox 99 08/04/18 23:41 - Labs Result Diagrams: 08/04/18 21:25 08/04/18 21:25 Labs: Laboratory Results - last 24 hr 08/04/18 08/04/18 08/04/18 20:29 21:07 21:25 WBC 11.8 H RBC 4.78 Hgb 13.1 Hct 40.9 MCV 85.6 MCH 27.4 MCHC 32.0 L RDW 14.7 H Plt Count 317 MPV 9.8 Neut % (Auto) 62.3 Lymph % (Auto) 25.1 [place] % (Auto) 11.1 H Eos % (Auto) 0.9 Baso % (Auto) 0.6 Neut # (Auto) 7.3 H Lymph # (Auto) 3.0 [place] # (Auto) 1.3 H Eos # (Auto) 0.1 Baso # (Auto) 0.1 pO2 33 VBG pH 7.43 VBG pCO2 49 VBG HCO3 29.5 VBG Total CO2 34.0 H VBG O2 Sat (Calc) 71.8 H VBG Base Excess 6.9 H VBG Potassium 3.1 L Sodium 136.0 Chloride 100.0 Glucose 154 H Lactate 1.6 FiO2 21.0 Potassium Carbon Dioxide Anion Gap BUN Creatinine Est GFR ( Amer) Est GFR (Non-Af Amer) POC Glucose (mg/dL) 143 H Random Glucose Calcium Total Bilirubin AST ALT Alkaline Phosphatase Troponin I Total Protein Albumin Globulin Albumin/Globulin Ratio TSH 3rd Generation Venous Blood Potassium 3.1 L Urine Color Urine Clarity Urine pH Ur Specific [place] Urine Protein Urine Glucose (UA) Urine Ketones Urine Blood Urine Nitrate Urine Bilirubin Urine Urobilinogen Ur Leukocyte Esterase Urine RBC (Auto) Urine Microscopic WBC Ur Squamous Epith Cells Urine Opiates Screen Urine Methadone Screen Ur Barbiturates Screen Ur Phencyclidine Scrn Ur Amphetamines Screen U Benzodiazepines Scrn U Oth Cocaine Metabols U Cannabinoids Screen 08/04/18 08/04/18 08/04/18 21:25 23:05 23:05 WBC RBC Hgb Hct MCV MCH MCHC RDW Plt Count MPV Neut % (Auto) Lymph % (Auto) [place] % (Auto) Eos % (Auto) Baso % (Auto) Neut # (Auto) Lymph # (Auto) [place] # (Auto) Eos # (Auto) Baso # (Auto) pO2 VBG pH VBG pCO2 VBG HCO3 VBG Total CO2 VBG O2 Sat (Calc) VBG Base Excess VBG Potassium Sodium 139 Chloride 93 L Glucose Lactate FiO2 Potassium 3.2 L Carbon Dioxide 31 H Anion Gap 18 BUN 7 Creatinine 0.7 Est GFR ( Amer) > 60 Est GFR (Non-Af Amer) > 60 POC Glucose (mg/dL) Random Glucose 150 H Calcium 9.3 Total Bilirubin 0.9 AST 44 H D ALT 44 Alkaline Phosphatase 93 Troponin I < 0.0120 Total Protein 7.2 Albumin 3.8 Globulin 3.4 Albumin/Globulin Ratio 1.1 TSH 3rd Generation 1.80 Venous Blood Potassium Urine Color Yellow Urine Clarity Clear Urine pH 6.0 Ur Specific [place] 1.008 Urine Protein Negative Urine Glucose (UA) Neg Urine Ketones Trace Urine Blood Negative Urine Nitrate Negative Urine Bilirubin Negative Urine Urobilinogen 0.2-1.0 Ur Leukocyte Esterase Neg Urine RBC (Auto) 1 Urine Microscopic WBC < 1 Ur Squamous Epith Cells < 1 Urine Opiates Screen Negative Urine Methadone Screen Negative Ur Barbiturates Screen Negative Ur Phencyclidine Scrn Negative Ur Amphetamines Screen Negative U Benzodiazepines Scrn Negative U Oth Cocaine Metabols Negative U Cannabinoids Screen Negative Assessment & Plan - Assessment and Plan (Free Text) Assessment: 77 yo F with history type 2 diabetes mellitus, chronic gastritis, chronic abdominal pain, anxiety recently started on trazodone, admitted due to hypokalemia and new onset hallucinations/AMS as reported by family. Plan: Hypokalemia - s/p 60 mEq PO K - NS + 20 meq K at 75 ml/hr - BMP in am New hallucinations/AMS - Head CT - no acute pathology - Stop trazodone - Psych consult in AM - UA/ Urine culture, blood culture pending - F/u official CXR read Gastritis/Abdominal Pain - Protonix 40 mg BID - Simethicone 80 mg QID Hypertension - Home med losartan Diet - Consistent carb, bland Prophylaxis - Lovenox Pt seen/discussed with Dr. Rocha.
[2018-08-05] MEDS: Potassium Chl 20 mEq in NS 1,000 ML IV SCH ×2 (03:34→21:21)
[2018-08-05 06:06] LABS: BASO # 0.1 K/uL (0.0-0.2); BASO % 0.7 % (0.0-2.0); EOS # 0.1 K/uL (0.0-0.7); EOS % 1.2 % (0.0-4.0); HEMOGLOBIN 12.3 g/dL (12.0-16.0); LYMPH # 2.8 K/uL (1.0-4.3); LYMPH % 25.5 % (20.0-40.0); MEAN CELL VOLUME 86.1 fl (81.0-99.0); MEAN CORPUSCULAR HEMOGLOBIN 27.9 pg (27.0-31.0); MEAN CORPUSCULAR HGB CONC 32.4 g/dL (33.0-37.0); MEAN PLATELET VOLUME 9.3 fl (7.2-11.7); MONO % 9.7 % (0.0-10.0); NEUT # 6.8 K/uL (1.8-7.0); NEUT % 62.9 % (50.0-75.0); RBC 4.4 Mil/uL (3.80-5.20); RED CELL DISTRIBUTION WIDTH 14.6 % (11.5-14.5); WHITE BLOOD COUNT 10.8 K/uL (4.8-10.8)
[2018-08-05 06:30] LABS: BLOOD UREA NITROGEN 5 mg/dl (7-17); CALCIUM 9.1 mg/dL (8.4-10.2); GFR NON-AFRICAN AMERICAN > 60
--- NOTE | 2018-08-05 08:09 | CP.PCM.CON ---
History of Present Illness - History of Present Illness History of Present Illness: Psychiatry consult note; consult called to evaluate for acute psychosis Patient evaluated w/ family present. History obtained from the chart. CC: "I'm in pain." HPI: 77 yo F with history hypertension, type 2 diabetes mellitus, chronic gastritis, chronic abdominal pain, anxiety recently started on trazodone, admitted due to hypokalemia and new onset hallucinations/AMS as reported by family. Patient was admitted due to abdominal pain in June 2018, had EGD 06/24/2018 which showed esophagitis, hiatal hernia, non-erosive gastritis and H pylori infection. Since then, she has visited the ER 8 times: 06/27, 06/30, 07/18, 07/20, 07/22, 07/23, 07/25 at [facility] with similar symptoms (vague abdominal pain, unable to eat (seemingly afraid to), unable to sleep, feeling weak), and 07/28 at [facility]. She was admitted at [facility] on 07/28, for flu-like symptoms (flu swab neg), suspected bronchitis (started on doxy); was discharged with prescriptions for Doxycycline 100mg PO BID x 14 days, PeptoBismol, Metronidazole 250 QID x 14 days, Protonix, Losartan 100mg PO daily. Patient's daughter reports that patient's anxiety symptoms started when she started to have acute medical issues and gastric pain. Daughter reported that prior to admission, the patient was speaking to her children outloud. At this time the patient is not actively hallucinating. No acute AH/VH/paranoia/delusions. Patient currently A + O x self, location, 2019, [place]. Patient's daughter reports that she only took the Trazodone once and did not experience hallucinations directly after taking the medications. Patient's family is hesitant to start treatment with antipsychotics at this time due to concerns about adverse effects and the patient is not actively hallucinating. NO SI/HI. PPHx: NO past psychiatric history of medications, other than recently prescribed Trazodone. Found to have K 3.2 in ED; 60 mEq PO K ordered. TSH 1.8. Troponin neg. Head CT: IMPRESSION: 1. There is generalized parenchymal atrophy noted as demonstrated by symmetrical dilatation of ventricles and sulci. 2. Chronic periventricular and subcortical microvascular disease is seen. 3. Bilateral ethmoid and sphenoid sinusitis. 4. No acute intracranial pathology. Blood and urine cultures ordered PMD: [facility] GI: Dr. Falcon PMH: arthritis, NIDDM2, back problems, HTN, hypercholesterolemia, osteoporosis, gastritis PSH: (x3) Meds: Metformin, Losartan, Protonix, Doxycycline, Metronidazole Social hx: lives with daughter, no drugs/etoh/cig use All: NKDA Impression: 77 yo female w/ recent worsening of anxiety due to stomach pain, no current psychotic symptoms, nor significant depression. If patient was previously hallucinating, it was likely due to acute delirium. -Can continue to hold Trazodone 25 mg, although it is unlikely that this medication caused or worsened psychotic symptoms -Patient's family does not want treatment with antipsychotics at this time; but if patient does start to have psychotic symptoms or late day confusion ("sun- downing"), can consider treatment with Seroquel 25 mg PO Q12 PRN -No acute psychiatric admission indicated at this time; patient would benefit from outpatient psychiatric treatment (already has apt on 08/08) to follow-up anxiety Past Patient History - Infectious Disease Hx of Infectious Diseases: None - Past Medical History & Family History Past Medical History?: Yes - Past Social History Smoking Status: Never Smoked - CARDIAC Hx Hypercholesterolemia: Yes Hx Hypertension: Yes - PULMONARY Hx Tuberculosis: No - NEUROLOGICAL Hx Seizures: No - HEENT Hx HEENT Problems: No - RENAL Hx Chronic Kidney Disease: No - ENDOCRINE/METABOLIC Hx Diabetes Mellitus Type 2: Yes (CURRENTLY NOT ON MEDICATION.) - HEMATOLOGICAL/ONCOLOGICAL Hx Human Immunodeficiency Virus (HIV): No - INTEGUMENTARY Hx Dermatological Problems: No - MUSCULOSKELETAL/RHEUMATOLOGICAL Hx Arthritis: Yes Hx Osteoporosis: Yes - GASTROINTESTINAL Hx Gastritis: Yes - GENITOURINARY/GYNECOLOGICAL Hx Sexually Transmitted Disorders: No - PSYCHIATRIC Hx Psychophysiologic Disorder: No Hx Emotional Abuse: No Hx Physical Abuse: No Hx Substance Use: No - SURGICAL HISTORY Hx Surgeries: Yes - ANESTHESIA Hx Anesthesia: Yes Hx Anesthesia Reactions: No Hx Malignant Hyperthermia: No Meds Allergies/Adverse Reactions: Allergies Allergy/AdvReac Type Severity Reaction Status Date / Time No Known Allergies Allergy Verified 08/02/18 17:43 - Medications Medications: Current Medications Acetaminophen (Tylenol 325mg Tab) 650 mg PO Q4 PRN PRN Reason: Pain, Mild (1-3) Last Admin: 08/05/18 05:14 Dose: 650 mg Enoxaparin Sodium (Lovenox) 40 mg SC DAILY [facility]; Protocol Potassium Chloride/Sodium Chloride (Potassium Chl 20 Meq In Ns) 1,000 mls @ 70 mls/hr IV .[id number] [facility] Stop: 08/06/18 00:57 Last Admin: 08/05/18 03:34 Dose: 70 mls/hr Losartan Potassium (Cozaar) 100 mg PO DAILY [facility] Pantoprazole Sodium (Protonix Ec Tab) 40 mg PO BID [facility] Simethicone (Mylicon Chew Tab) 80 mg PO QID [facility] Results - Vital Signs Recent Vital Signs: Last Vital Signs Temp 98.0 F 08/05/18 02:35 Pulse 83 08/05/18 07:04 Resp 18 08/05/18 07:04 BP 154/84 H 08/05/18 07:04 Pulse Ox 96 08/05/18 07:04 - Labs Result Diagrams: 08/05/18 05:45 08/05/18 05:45 Labs: Laboratory Results - last 24 hr 08/04/18 08/04/18 08/04/18 20:29 21:07 21:25 WBC 11.8 H RBC 4.78 Hgb 13.1 Hct 40.9 MCV 85.6 MCH 27.4 MCHC 32.0 L RDW 14.7 H Plt Count 317 MPV 9.8 Neut % (Auto) 62.3 Lymph % (Auto) 25.1 [place] % (Auto) 11.1 H Eos % (Auto) 0.9 Baso % (Auto) 0.6 Neut # (Auto) 7.3 H Lymph # (Auto) 3.0 [place] # (Auto) 1.3 H Eos # (Auto) 0.1 Baso # (Auto) 0.1 pO2 33 VBG pH 7.43 VBG pCO2 49 VBG HCO3 29.5 VBG Total CO2 34.0 H VBG O2 Sat (Calc) 71.8 H VBG Base Excess 6.9 H VBG Potassium 3.1 L Sodium 136.0 Chloride 100.0 Glucose 154 H Lactate 1.6 FiO2 21.0 Potassium Carbon Dioxide Anion Gap BUN Creatinine Est GFR ( Amer) Est GFR (Non-Af Amer) POC Glucose (mg/dL) 143 H Random Glucose Calcium Total Bilirubin AST ALT Alkaline Phosphatase Troponin I Total Protein Albumin Globulin Albumin/Globulin Ratio TSH 3rd Generation Venous Blood Potassium 3.1 L Urine Color Urine Clarity Urine pH Ur Specific [place] Urine Protein Urine Glucose (UA) Urine Ketones Urine Blood Urine Nitrate Urine Bilirubin Urine Urobilinogen Ur Leukocyte Esterase Urine RBC (Auto) Urine Microscopic WBC Ur Squamous Epith Cells Urine Opiates Screen Urine Methadone Screen Ur Barbiturates Screen Ur Phencyclidine Scrn Ur Amphetamines Screen U Benzodiazepines Scrn U Oth Cocaine Metabols U Cannabinoids Screen 08/04/18 08/04/18 08/04/18 21:25 23:05 23:05 WBC RBC Hgb Hct MCV MCH MCHC RDW Plt Count MPV Neut % (Auto) Lymph % (Auto) [place] % (Auto) Eos % (Auto) Baso % (Auto) Neut # (Auto) Lymph # (Auto) [place] # (Auto) Eos # (Auto) Baso # (Auto) pO2 VBG pH VBG pCO2 VBG HCO3 VBG Total CO2 VBG O2 Sat (Calc) VBG Base Excess VBG Potassium Sodium 139 Chloride 93 L Glucose Lactate FiO2 Potassium 3.2 L Carbon Dioxide 31 H Anion Gap 18 BUN 7 Creatinine 0.7 Est GFR ( Amer) > 60 Est GFR (Non-Af Amer) > 60 POC Glucose (mg/dL) Random Glucose 150 H Calcium 9.3 Total Bilirubin 0.9 AST 44 H D ALT 44 Alkaline Phosphatase 93 Troponin I < 0.0120 Total Protein 7.2 Albumin 3.8 Globulin 3.4 Albumin/Globulin Ratio 1.1 TSH 3rd Generation 1.80 Venous Blood Potassium Urine Color Yellow Urine Clarity Clear Urine pH 6.0 Ur Specific [place] 1.008 Urine Protein Negative Urine Glucose (UA) Neg Urine Ketones Trace Urine Blood Negative Urine Nitrate Negative Urine Bilirubin Negative Urine Urobilinogen 0.2-1.0 Ur Leukocyte Esterase Neg Urine RBC (Auto) 1 Urine Microscopic WBC < 1 Ur Squamous Epith Cells < 1 Urine Opiates Screen Negative Urine Methadone Screen Negative Ur Barbiturates Screen Negative Ur Phencyclidine Scrn Negative Ur Amphetamines Screen Negative U Benzodiazepines Scrn Negative U Oth Cocaine Metabols Negative U Cannabinoids Screen Negative 08/05/18 08/05/18 05:45 05:45 WBC 10.8 RBC 4.40 Hgb 12.3 Hct 37.9 MCV 86.1 MCH 27.9 MCHC 32.4 L RDW 14.6 H Plt Count 309 MPV 9.3 Neut % (Auto) 62.9 Lymph % (Auto) 25.5 [place] % (Auto) 9.7 Eos % (Auto) 1.2 Baso % (Auto) 0.7 Neut # (Auto) 6.8 Lymph # (Auto) 2.8 [place] # (Auto) 1.0 H Eos # (Auto) 0.1 Baso # (Auto) 0.1 pO2 VBG pH VBG pCO2 VBG HCO3 VBG Total CO2 VBG O2 Sat (Calc) VBG Base Excess VBG Potassium Sodium 140 Chloride 97 L Glucose Lactate FiO2 Potassium 3.9 Carbon Dioxide 29 Anion Gap 18 BUN 5 L Creatinine 0.7 Est GFR ( Amer) > 60 Est GFR (Non-Af Amer) > 60 POC Glucose (mg/dL) Random Glucose 149 H Calcium 9.1 Total Bilirubin AST ALT Alkaline Phosphatase Troponin I Total Protein Albumin Globulin Albumin/Globulin Ratio TSH 3rd Generation Venous Blood Potassium Urine Color Urine Clarity Urine pH Ur Specific [place] Urine Protein Urine Glucose (UA) Urine Ketones Urine Blood Urine Nitrate Urine Bilirubin Urine Urobilinogen Ur Leukocyte Esterase Urine RBC (Auto) Urine Microscopic WBC Ur Squamous Epith Cells Urine Opiates Screen Urine Methadone Screen Ur Barbiturates Screen Ur Phencyclidine Scrn Ur Amphetamines Screen U Benzodiazepines Scrn U Oth Cocaine Metabols U Cannabinoids Screen
--- NOTE | 2018-08-05 08:17 | RAD ---
Date of service: 08/04/2018 HISTORY: ROUTINE COMPARISON: Frontal chest radiograph 07/23/2018. FINDINGS: LUNGS: No active pulmonary disease. PLEURA: No significant pleural effusion identified, no pneumothorax apparent. CARDIOVASCULAR: No aortic atherosclerotic calcification present. Normal cardiac size. No pulmonary vascular congestion. OSSEOUS STRUCTURES: No significant abnormalities. VISUALIZED UPPER ABDOMEN: Normal. OTHER FINDINGS: None. IMPRESSION: No interval acute cardiopulmonary disease appreciated.
[2018-08-05] MEDS: Simethicone 80 mg Chewtab PO SCH ×4 (10:18→21:41)
[2018-08-05] MEDS: Enoxaparin 40 mg Syringe SC SCH (10:18)
[2018-08-05] MEDS: Pantoprazole 40 mg EC Tab PO SCH ×2 (10:18→18:19)
--- NOTE | 2018-08-05 12:07 | CT ---
Date of service: 08/04/2018 PROCEDURE: CT HEAD WITHOUT CONTRAST. HISTORY: AMS COMPARISON: None available. TECHNIQUE: Axial computed tomography images were obtained through the head/brain without intravenous contrast. Radiation dose: Total exam DLP = 870.32 mGy-cm. This CT exam was performed using one or more of the following dose reduction techniques: Automated exposure control, adjustment of the mA and/or kV according to patient size, and/or use of iterative reconstruction technique. FINDINGS: HEMORRHAGE: No intracranial hemorrhage. BRAIN: No mass effect or edema. No atrophy or chronic microvascular ischemic changes. VENTRICLES: Unremarkable. No hydrocephalus. CALVARIUM: Unremarkable. PARANASAL SINUSES: Unremarkable as visualized. No significant inflammatory changes. MASTOID AIR CELLS: Unremarkable as visualized. No inflammatory changes. OTHER FINDINGS: None. IMPRESSION: Normal CT of the Head.
[2018-08-05 16:21] VITALS: RESP 20
[2018-08-05] MEDS ORDERED: Dextrose 50% SYRINGE Inj (50 ml) IV PRN (17:04)
[2018-08-05] MEDS ORDERED: Glucagon Recombinant 1 mg Inj IM PRN (17:04)
[2018-08-05] MEDS ORDERED: Alum-Mag Hydrox-Simethicone Susp (30 mL) PO ONE (17:13)
[2018-08-05] MEDS: Insulin Lispro (humaLOG) 100 Units/ml Inj SC SCH (22:15)
[2018-08-06 06:31] LABS: BASO % 0.4 % (0.0-2.0); EOS # 0.1 K/uL (0.0-0.7); EOS % 1.6 % (0.0-4.0); HEMOGLOBIN 12.1 g/dL (12.0-16.0); LYMPH # 2.8 K/uL (1.0-4.3); LYMPH % 34.2 % (20.0-40.0); MEAN CELL VOLUME 86.4 fl (81.0-99.0); MEAN CORPUSCULAR HEMOGLOBIN 27.9 pg (27.0-31.0); MEAN CORPUSCULAR HGB CONC 32.2 g/dL (33.0-37.0); MEAN PLATELET VOLUME 9.8 fl (7.2-11.7); NEUT # 4.3 K/uL (1.8-7.0); NEUT % 51.8 % (50.0-75.0); RBC 4.33 Mil/uL (3.80-5.20); RED CELL DISTRIBUTION WIDTH 15.1 % (11.5-14.5); WHITE BLOOD COUNT 8.2 K/uL (4.8-10.8)
[2018-08-06 06:51] LABS: BLOOD UREA NITROGEN 4 mg/dl (7-17); CALCIUM 9.1 mg/dL (8.4-10.2); GFR NON-AFRICAN AMERICAN > 60
[2018-08-06] MEDS: Insulin Lispro (humaLOG) 100 Units/ml Inj SC SCH ×2 (08:00→13:02)
[2018-08-06] MEDS ORDERED: Sodium Chloride 3% for Inhalation 4 ML VIAL.NEB IH PRN (08:16)
[2018-08-06 08:20] VITALS: O2SAT 96
[2018-08-06] MEDS ORDERED: Pantoprazole 40 mg EC Tab PO SCH (09:00)
[2018-08-06] MEDS: Enoxaparin 40 mg Syringe SC SCH (09:54)
[2018-08-06] MEDS: Simethicone 80 mg Chewtab PO SCH ×2 (09:55→13:00)
[2018-08-06 09:57] VITALS: BP 125/72; PULSE 82
--- NOTE | 2018-08-06 10:45 | RAD ---
Date of service: 08/06/2018 HISTORY: cough with fever spike of 102.7F COMPARISON: Frontal chest radiograph 08/04/2018. TECHNIQUE: AP and lateral views of the chest have been submitted for interpretation. FINDINGS: LUNGS: No active pulmonary disease. PLEURA: No significant pleural effusion identified. No pneumothorax apparent. CARDIOVASCULAR: No aortic atherosclerotic calcification present. Cardiac size is poorly evaluated due to frontal technique and is likely stable in the interval. No pulmonary vascular congestion. OSSEOUS STRUCTURES: No significant abnormalities. VISUALIZED UPPER ABDOMEN: Normal. OTHER FINDINGS: None. IMPRESSION: No acute pulmonary disease appreciated. Cardiac size likely magnified by frontal technique. No pulmonary vascular congestion.
[2018-08-06 11:29] LABS: SQUAMOUS EPITHIAL 1 /hpf (0-5); URINE BILIRUBIN NEGATIVE (NEGATIVE); URINE BLOOD NEGATIVE (NEGATIVE); URINE CLARITY CLEAR (Clear); URINE COLOR YELLOW (YELLOW); URINE GLUCOSE (UA) NEG (NEGATIVE); URINE LEUKOCYTE ESTERASE NEG Leu/uL (Negative); URINE PROTEIN NEGATIVE (NEGATIVE); URINE UROBILINOGEN 0.2-1.0 mg/dL (0.2-1.0)
[2018-08-06 11:58] VITALS: TEMP 97.6
--- NOTE | 2018-08-06 14:00 | CP.PCM.DIS ---
Provider - Provider Date of Admission: 08/04/18 22:57 Attending physician: Nancy Norton MD Consults: 08/05/18 08:00 Psychiatry Consult Routine Comment: anxiety, new hallucinations on trazodone Consulting Provider: Sabina Fernandez Consulting Physician: Sabina Fernandez Reason for Consult: anxiety, new hallucinations on trazodone 08/06/18 08:20 Gastroenterology Consult Routine Comment: Consulting Provider: Irineo Falcon Consulting Physician: Irineo Falcon Reason for Consult: 77 yo F w/ pmh of shana peña continuing abdominal pain. Time Spent in preparation of Discharge (in minutes): 35 Hospital Course - Lab Results Lab Results: Micro Results 08/04/18 21:30 Urine,Clean Catch Urine Culture - Final No Growth (<1,000 CFU/ML) 08/04/18 21:25 Blood-Venous Blood Culture - Preliminary NO GROWTH AFTER 24 HOURS 08/04/18 21:25 Blood-Venous Blood Culture - Preliminary NO GROWTH AFTER 24 HOURS Most Recent Lab Values WBC 8.2 K/uL (4.8-10.8) 08/06/18 05:35 RBC 4.33 Mil/uL (3.80-5.20) 08/06/18 05:35 Hgb 12.1 g/dL (12.0-16.0) 08/06/18 05:35 Hct 37.4 % (34.0-47.0) 08/06/18 05:35 MCV 86.4 fl (81.0-99.0) 08/06/18 05:35 MCH 27.9 pg (27.0-31.0) 08/06/18 05:35 MCHC 32.2 g/dL (33.0-37.0) L 08/06/18 05:35 RDW 15.1 % (11.5-14.5) H 08/06/18 05:35 Plt Count 269 K/uL (130-400) 08/06/18 05:35 MPV 9.8 fl (7.2-11.7) 08/06/18 05:35 Neut % (Auto) 51.8 % (50.0-75.0) 08/06/18 05:35 Lymph % (Auto) 34.2 % (20.0-40.0) 08/06/18 05:35 [place] % (Auto) 12.0 % (0.0-10.0) H 08/06/18 05:35 Eos % (Auto) 1.6 % (0.0-4.0) 08/06/18 05:35 Baso % (Auto) 0.4 % (0.0-2.0) 08/06/18 05:35 Neut # (Auto) 4.3 K/uL (1.8-7.0) 08/06/18 05:35 Lymph # (Auto) 2.8 K/uL (1.0-4.3) 08/06/18 05:35 [place] # (Auto) 1.0 K/uL (0.0-0.8) H 08/06/18 05:35 Eos # (Auto) 0.1 K/uL (0.0-0.7) 08/06/18 05:35 Baso # (Auto) 0.0 K/uL (0.0-0.2) 08/06/18 05:35 pO2 33 mm/Hg (30-55) 08/04/18 21:07 VBG pH 7.43 (7.32-7.43) 08/04/18 21:07 VBG pCO2 49 mmHg (40-60) 08/04/18 21:07 VBG HCO3 29.5 mmol/L 08/04/18 21:07 VBG Total CO2 34.0 mmol/L (22-28) H 08/04/18 21:07 VBG O2 Sat (Calc) 71.8 % (40-65) H 08/04/18 21:07 VBG Base Excess 6.9 mmol/L (0.0-2.0) H 08/04/18 21:07 VBG Potassium 3.1 mmol/L (3.6-5.2) L 08/04/18 21:07 Sodium 136.0 mmol/L (132-148) 08/04/18 21:07 Chloride 100.0 mmol/L (98-107) 08/04/18 21:07 Glucose 154 mg/dL (65-105) H 08/04/18 21:07 Lactate 1.6 mmol/L (0.7-2.1) 08/04/18 21:07 FiO2 21.0 % 08/04/18 21:07 Sodium 139 mmol/l (132-148) 08/06/18 05:35 Potassium 4.0 MMOL/L (3.6-5.0) 08/06/18 05:35 Chloride 99 mmol/L (98-107) 08/06/18 05:35 Carbon Dioxide 32 mmol/L (22-30) H 08/06/18 05:35 Anion Gap 12 (10-20) 08/06/18 05:35 BUN 4 mg/dl (7-17) L 08/06/18 05:35 Creatinine 0.8 mg/dl (0.7-1.2) 08/06/18 05:35 Est GFR ( Amer) > 60 08/06/18 05:35 Est GFR (Non-Af Amer) > 60 08/06/18 05:35 POC Glucose (mg/dL) 152 mg/dL (65-110) H 08/06/18 11:00 Random Glucose 125 mg/dL (65-105) H 08/06/18 05:35 Calcium 9.1 mg/dL (8.4-10.2) 08/06/18 05:35 Total Bilirubin 0.9 mg/dl (0.2-1.3) 08/04/18 21:25 AST 44 U/L (14-36) H D 08/04/18 21:25 ALT 44 U/L (9-52) 08/04/18 21:25 Alkaline Phosphatase 93 U/L (38-126) 08/04/18 21:25 Troponin I < 0.0120 ng/mL (0.00-0.120) 08/04/18 21:25 Total Protein 7.2 G/DL (6.3-8.2) 08/04/18 21:25 Albumin 3.8 g/dL (3.5-5.0) 08/04/18 21:25 Globulin 3.4 gm/dL (2.2-3.9) 08/04/18 21:25 Albumin/Globulin Ratio 1.1 (1.0-2.1) 08/04/18 21:25 TSH 3rd Generation 1.80 mIU/ML (0.46-4.68) 08/04/18 21:25 Venous Blood Potassium 3.1 mmol/L (3.6-5.2) L 08/04/18 21:07 Urine Color Yellow (YELLOW) 08/06/18 11:10 Urine Clarity Clear (Clear) 08/06/18 11:10 Urine pH 6.0 (5.0-8.0) 08/06/18 11:10 Ur Specific [place] 1.009 (1.003-1.030) 08/06/18 11:10 Urine Protein Negative mg/dL (NEGATIVE) 08/06/18 11:10 Urine Glucose (UA) Neg mg/dL (NEGATIVE) 08/06/18 11:10 Urine Ketones Negative mg/dL (NEGATIVE) 08/06/18 11:10 Urine Blood Negative (NEGATIVE) 08/06/18 11:10 Urine Nitrate Negative (NEGATIVE) 08/06/18 11:10 Urine Bilirubin Negative (NEGATIVE) 08/06/18 11:10 Urine Urobilinogen 0.2-1.0 mg/dL (0.2-1.0) 08/06/18 11:10 Ur Leukocyte Esterase Neg [place]/uL (Negative) 08/06/18 11:10 Urine RBC (Auto) < 1 /hpf (0-3) 08/06/18 11:10 Urine Microscopic WBC 2 /hpf (0-5) 08/06/18 11:10 Ur Squamous Epith Cells 1 /hpf (0-5) 08/06/18 11:10 Urine Opiates Screen Negative (NEGATIVE) 08/04/18 23:05 Urine Methadone Screen Negative (NEGATIVE) 08/04/18 23:05 Ur Barbiturates Screen Negative (NEGATIVE) 08/04/18 23:05 Ur Phencyclidine Scrn Negative (NEGATIVE) 08/04/18 23:05 Ur Amphetamines Screen Negative (NEGATIVE) 08/04/18 23:05 U Benzodiazepines Scrn Negative (NEGATIVE) 08/04/18 23:05 U Oth Cocaine Metabols Negative (NEGATIVE) 08/04/18 23:05 U Cannabinoids Screen Negative (NEGATIVE) 08/04/18 23:05 Influenza Typ A,B (EIA) Negative for flu a/b (NEGATIVE) 08/06/18 08:44 - Hospital Course Hospital Course: 77 yo F with history of H. pylori, type 2 diabetes mellitus, chronic gastritis, chronic abdominal pain, anxiety recently started on trazodone, admitted due to hypokalemia, new onset hallucinations/AMS as reported by family, and abdominal pain. Hypokalemia resolved after replacement. Dr. Fernandez, psychiatrist, evaluated the patient, and recommended discontinuation of Trazodone 25mg although it was deemed an unlikely to be cause of intermittent AMS. She had an episode of epigastric pain yesterday evening and received asome medications which helped. Acute delirium was suspected and seroquel 25 mg PO BID PRN was recommended. She received one dose last night, which she reports helped her sleep. Patient was examined this morning. Patient stated she was feeling well. She denied any fever, chills or abdominal pain. She tolerated PO regular diet without any nausea, vomiting or diarrhea. One reading of vitals reported a temp of 102F. CXR was done that showed no acute pathology. Repeat temp was wnl. -Patient scheduled to FU Dr. Stanley this Sunday, August 09, 2018. 1.Hypokalemia (Acute, resolved) 2.Acute delirium (resolved at this time) -Head CT was performed in ED: IMPRESSION: 1. There is generalized parenchymal atrophy noted as demonstrated by symmetrical dilatation of ventricles and sulci. 2. Chronic periventricular and subcortical microvascular disease is seen. 3. Bilateral ethmoid and sphenoid sinusitis. 4. No acute intracranial pathology. -Patient scheduled to follow up with [facility] August, -New onset of hallucinations & AMS -Patient evaluated by Dr. Fernandez who recommended discontinuation of Trazodone 25mg although unlikely to be cause of intermittent AMS. -CXR negative for acute pathology. - UA/Urine &blood culture negative. 3. Esophagitis with Abdominal Pain (Acute on chronic) -Follow scheduled to FU with Dr. Falcon August 13, 2018. -Continue Protonix EC 40 mg BID -Continue doxycycline hyclate 100mg PO BID -Continue Flagyl 250mg PO BID -Continue Carafate 1 gm PO QID 4. Hypertension (Chronic) - Cozaar 100mg PO QD Discharge Exam - Head Exam Head Exam: NORMAL INSPECTION - Eye Exam Eye Exam: EOMI - ENT Exam ENT Exam: Mucous Membranes Moist - Respiratory Exam Respiratory Exam: Clear to PA & Lateral. absent: Rales, Wheezes, Respiratory Distress, Stridor - Cardiovascular Exam Cardiovascular Exam: REGULAR RHYTHM, +S1, +S2 - GI/Abdominal Exam GI & Abdominal Exam: Normal Bowel Sounds, Soft. absent: Guarding, Tenderness - Extremities Exam Extremities exam: normal inspection - Neurological Exam Neurological exam: Alert, Oriented x3 - Psychiatric Exam Psychiatric exam: Normal Affect, Normal Mood - Skin Skin Exam: Dry, Intact Discharge Plan - Discharge Medications Prescriptions: Sucralfate [Carafate] 1 gm PO QID 14 Days #56 tablet - Follow Up Plan Condition: FAIR Disposition: HOME/ ROUTINE Instructions: Hypokalemia (DC), Potassium Test Additional Instructions: hacer valentina con walsh doctor primario dentro 1 semana Referrals: [facility] [Outside] [facility] [Outside] Irineo Falcon MD [Staff Provider] -
== END 2018-08-06 14:14 | disposition home or self-care (01) ==
LOC: H.ER 20:22 → H.ERHOLD 22:57 → H.MEDSURG1 08-05 13:00
PROVIDERS: ADMIT Internal Medicine; ATTEND Internal Medicine
DX: R41.0 Disorientation, unspecified (principal); E87.6 Hypokalemia; E11.9 Type 2 diabetes mellitus without complications; E78.00 Pure hypercholesterolemia, unspecified; E78.5 Hyperlipidemia, unspecified; I10 Essential (primary) hypertension; K29.50 Unspecified chronic gastritis without bleeding; M81.0 Age-related osteoporosis without current pathological fracture; G89.29 Other chronic pain; F06.4 Anxiety disorder due to known physiological condition; K20.9 Esophagitis, unspecified; M19.90 Unspecified osteoarthritis, unspecified site; J32.2 Chronic ethmoidal sinusitis; J32.3 Chronic sphenoidal sinusitis; B96.81 Helicobacter pylori [H. pylori] as the cause of diseases classified elsewhere
CPT/HCPCS: 36415; 70450; 71045; 71046; 80048; 80053; 81003; 82803; 82948; 84443; 84484; 85025; 87040; 87070; 87086; 87804; 96360; 96372; 99285; G0378; G0480; J0696; J1650; J7040